=== PATIENT | female | born 1995 | race African-American/Black ===

== ENCOUNTER 2016-07-11 09:56 | Inpatient (IN) | payer OTHER ==
[~2016-07-11] VITALS: Ht 157.5 cm; Wt 80.7 kg
[~2016-07-11 09:56] MED LIST: BND25X PO; MECL1TAB42 PO; OXYC5TAB PO
[2016-07-11] MEDS ORDERED: BCPILLS PO (10:37)
[2016-07-11] MEDS ORDERED: VNTHFA/IN INH (10:39)
[2016-07-11] MEDS ORDERED: FLVHFA220 INH (10:39)
[2016-07-11 10:43] LABS: BASO % 0.6 %; BASO ABS # 0.05 K/uL (0-0.2); COMPLETE YES; EOS % 3.8 %; HEMATOCRIT 36.3 % (37-47); IG% 0.2 %; LYMPH % 25.1 %; MEAN CELL VOLUME 79.6 fL (80-100); MEAN CORPUSCULAR HEMOGLOBIN 26.5 pg (25-34); MEAN CORPUSCULAR HGB CONC 33.3 g/dl (32-36); MEAN PLATELET VOLUME 9.6 fL (7.4-10.4); MONO % 8.4 %; NEUT % 61.9 %; PLATELET COUNT 435 K/uL (130-400); RED BLOOD COUNT 4.56 M/uL (4.2-5.4); WHITE BLOOD COUNT 8.77 K/uL (4.8-10.8)
--- NOTE | 2016-07-11 10:49 | DIAGNOSTIC IMAGING REPORT ---
CHEST ONE VIEW PORTABLE CLINICAL HISTORY: Atypical chest pain. Shortness of breath. COMPARISON STUDY: February 01, 2015 FINDINGS: The cardiac and mediastinal contours are normal. There is no evidence of focal pulmonary consolidation. There is no evidence of failure. No pleural effusions are visualized.[ IMPRESSION: No active disease in the chest. Electronically signed by: Pramod Clancy M.D. 07/11/2016 10:47 AM Dictated Date/Time: 07/11/2016 10:47 AM
[2016-07-11 10:52] LABS: PROTHROMBIN TIME (PATIENT) 10.4 SECONDS (9.0-12.0)
[2016-07-11 11:03] LABS: ALT/SGPT 26 U/L (12-78); BLOOD UREA NITROGEN 9 mg/dl (7-18); BUN/CREATININE RATIO 12.9 (10-20); CALCIUM 9.1 mg/dl (8.5-10.1); CARBON DIOXIDE 20 mmol/L (21-32); CHLORIDE 108 mmol/L (98-107); GLUCOSE 87 mg/dl (70-99); POTASSIUM 3.9 mmol/L (3.5-5.1); SODIUM 140 mmol/L (136-145)
[2016-07-11 11:08] LABS: ALKALINE PHOSPHATASE 76 U/L (45-117); AST/SGOT 16 U/L (15-37)
[2016-07-11] MEDS ORDERED: OPTIRAY 320 IV PRN (12:15)
--- NOTE | 2016-07-11 12:37 | DIAGNOSTIC IMAGING REPORT ---
CT ANGIOGRAM OF THE CHEST CLINICAL HISTORY: Atypical chest pain. Dyspnea. COMPARISON STUDY: Chest x-ray dated 07/11/2016. TECHNIQUE: Following the IV administration of 102 cc of Optiray 320, CT angiogram of the chest was performed from the upper abdomen to the thoracic inlet utilizing the pulmonary embolus protocol. Images are reviewed in the axial, sagittal, and coronal planes. 3-D MIPS images are created and assessed. IV contrast was administered without complication. CT DOSE: 538.99 mGycm FINDINGS: Thyroid: Imaged portions of the thyroid gland are normal in size and attenuation. Thoracic aorta: The thoracic aorta is normal in caliber and demonstrates standard 3-vessel arch anatomy. No dissection is seen. Pulmonary vasculature: The pulmonary trunk is normal in caliber. There are filling defects within segmental and subsegmental branches of the right and left lower lobe pulmonary arteries consistent with pulmonary emboli. Heart: The heart is normal in size and configuration, and without pericardial effusion. Lungs and pleural spaces: A small cyst with an adjacent 3 mm pulmonary nodule in the right lower lobe seen on image #141 is of doubtful significance. The lungs and pleural spaces are otherwise clear noting dependent atelectasis. The trachea and central airways are patent. Mediastinum: There is no mediastinal lymphadenopathy. Adriana: Clear. Axillae: There is no axillary lymphadenopathy. Upper abdomen: Partially visualized upper abdominal viscera is within normal limits. Skeletal structures: No lytic or blastic bony lesions are seen. IMPRESSION: 1. There are segmental and subsegmental pulmonary emboli present within both lower lobe pulmonary arteries. 2. There is no airspace consolidation or pleural effusion. Electronically signed by: Alcides Vick M.D. 07/11/2016 12:35 PM Dictated Date/Time: 07/11/2016 12:31 PM
[2016-07-11] MEDS ORDERED: ACETAMINOPHEN 325 MG TAB PO STA (12:53)
[2016-07-11 13:28] LABS: PREG INTERNAL NEGATIVE QC NEG CLEAR BACKGROUND; PREG INTERNAL POSITIVE QC POS CONTROL LINE
[2016-07-11] MEDS ORDERED: NORE1TAB32 PO (14:00)
[2016-07-11] MEDS ORDERED: MISCCAP80 PO (14:00)
[2016-07-11] MEDS ORDERED: MULT-506 PO (14:00)
[2016-07-11 14:04] VITALS: Ht 157.5 cm; Wt 80.7 kg
[2016-07-11] MEDS ORDERED: IV FLUIDS COMPLETED PRN (14:30)
[2016-07-11 16:01] VITALS: O2SAT 99
[2016-07-11 16:05] VITALS: BP 117/79; PULSE 78; TEMP 36.9; O2SAT 99
--- NOTE | 2016-07-11 16:06 | History and Physical ---
History & Physical Date of Service Jul 11, 2016. History & Physical This is a 21 year old female with PMH of asthma, migraines, presented with some shortness of breath and chest pain - she was slightly tachycardic on presentation to the ER, CT was performed, showing bilateral segmental and subsegmental PEs in the lower lobes - she is not hypoxic, resting comfortably, intermittent chest pain currently. VITALS: Last Vital Signs Documentation Date Time Temp Pulse Resp B/P Pulse Ox O2 Delivery O2 Flow Rate FiO2 07/11/16 14:29 91 18 112/81 96 07/11/16 10:04 37.0 GEN: no acute distress CVS: RRR, +S1, S2 LUNGS: CTA b/l, no wheezing ABD: soft, NT/ND EXT: no edema Acute Bilateral PE likely secondary to OCP use stopped OCPs started Xarelto hypercoag w/up pending d/c home in AM with outpatient PCP f/u as well as crew scheduler f/u regarding control
--- NOTE | 2016-07-11 16:10 | History and Physical ---
History & Physical Date & Time of Service: Jul 11, 2016 at 16:00 Chief Complaint: Chest Pain, Shortness of Breath Primary Care Physician: Gerald Davila M.D. History of Present Illness 21 year old female who presents to the ER with chest pain and shortness of breath. Patient reports she has been having symptoms for about one month. She was seen at her PCPs office a few days ago. Her chest XR was clear. She was given inhalers. She reports the pain as located across her entire chest. It is constant and worse with a deep breath. She describes the pain as stabbing. Last night the pain was severe. She has had worsening shortness of breath on exertion. Last night she reports mild lightheadedness with standing but denies dizziness and syncopal events. She reports her left calf has been hurting and she notes two bruises to her upper thigh. She denies trauma to the leg. She denies any recent travel. No abdominal pain, nausea, vomiting, or diarrhea. She denies urinary symptoms. No fever or chills. In the ER, patient had CTA chest that is showing pulmonary embolism. She is saturating well on room air. Vitals are stable. Past Medical/Surgical History Medical Problems: (1) Asthma Status: Chronic (2) Benson's palsy Status: Chronic (3) BPPV (benign paroxysmal positional vertigo) Status: Chronic Surgical Problems: (1) H/O nasal polypectomy Status: Chronic (2) H/O ovarian cystectomy Status: Chronic (3) History of tonsillectomy and adenoidectomy Status: Chronic (4) [place] teeth extracted Status: Chronic Family History Unobtainable family history due to adoption Social History Smoking Status: Former Smoker Alcohol Use: none Marital Status: Allergies Coded Allergies: Ibuprofen (Verified Allergy, Severe, ANAPHYLAXIS, 07/11/16) Home Medications Scheduled Fluticasone Propionate (Flovent Hfa), 2 PUFFS INH BID Multivitamin (Multivitamin), 1 TAB PO DAILY Norethindrone & Eth Estradiol (Cyclafem ), 1 TAB PO DAILY Probiotic Product (Probiotic), 1 CAP PO DAILY Scheduled PRN Albuterol Hfa (Ventolin Hfa), 2 PUFFS INH Q4H PRN for Wheezing Review of Systems 10 point review of systems was completed with the pertinent positives and negatives noted per the HPI Physical Exam Vital Signs Date Time Temp Pulse Resp B/P Pulse Ox O2 Delivery O2 Flow Rate FiO2 07/11/16 14:29 91 18 112/81 96 07/11/16 14:04 Room Air 07/11/16 13:38 78 16 124/85 97 Room Air 07/11/16 13:08 88 07/11/16 12:07 75 22 126/87 96 Room Air 07/11/16 10:14 87 07/11/16 10:09 100 Room Air 07/11/16 10:07 100 Room Air 07/11/16 10:04 37.0 110 34 132/78 100 Room Air General Appearance: no apparent distress Head: normocephalic Eyes: normal inspection ENT: hearing grossly normal Neck: supple, no JVD Respiratory/Chest: lungs clear, normal breath sounds, no respiratory distress Cardiovascular: regular rate, rhythm, no edema, normal peripheral pulses Abdomen/GI: normal bowel sounds, non tender, soft Extremities/Musculoskelatal: no pedal edema, + calf tenderness (right) Neurologic/Psych: no motor/sensory deficits, alert, normal mood/affect, oriented x 3 Skin: normal color, warm/dry Diagnostics Laboratory Results Results Past 24 Hours Test 07/11/16 10:20 07/11/16 10:22 07/11/16 13:50 Range/Units White Blood Count 8.77 4.8-10.8 K/uL Red Blood Count 4.56 4.2-5.4 M/uL Hemoglobin 12.1 12.0-16.0 g/dL Hematocrit 36.3 37-47 % Mean Corpuscular Volume 79.6 80-100 fL Mean Corpuscular Hemoglobin 26.5 25-34 pg Mean Corpuscular Hemoglobin Concent 33.3 32-36 g/dl Platelet Count 435 130-400 K/uL Mean Platelet Volume 9.6 7.4-10.4 fL Neutrophils (%) (Auto) 61.9 % Lymphocytes (%) (Auto) 25.1 % Monocytes (%) (Auto) 8.4 % Eosinophils (%) (Auto) 3.8 % Basophils (%) (Auto) 0.6 % Neutrophils # (Auto) 5.43 1.4-6.5 K/uL Lymphocytes # (Auto) 2.20 1.2-3.4 K/uL Monocytes # (Auto) 0.74 0.11-0.59 K/uL Eosinophils # (Auto) 0.33 0-0.5 K/uL Basophils # (Auto) 0.05 0-0.2 K/uL RDW Standard Deviation 41.1 36.4-46.3 fL RDW Coefficient of Variation 14.4 11.5-14.5 % Immature Granulocyte % (Auto) 0.2 % Immature Granulocyte # (Auto) 0.02 0.00-0.02 K/uL Prothrombin Time 10.4 9.0-12.0 SECONDS Prothromb Time International Ratio 1.0 0.9-1.1 Activated Partial Thromboplast Time 25.8 21.0-31.0 SECONDS Partial Thromboplastin Ratio 1.0 Sodium Level 140 136-145 mmol/L Potassium Level 3.9 3.5-5.1 mmol/L Chloride Level 108 98-107 mmol/L Carbon Dioxide Level 20 21-32 mmol/L Anion Gap 12.0 3-11 mmol/L Blood Urea Nitrogen 9 7-18 mg/dl Creatinine 0.70 0.60-1.20 mg/dl Est Creatinine Clear Calc Drug Dose 123.0 ml/min Estimated GFR () 141.5 Estimated GFR (Non- 122.1 BUN/Creatinine Ratio 12.9 10-20 Random Glucose 87 70-99 mg/dl Calcium Level 9.1 8.5-10.1 mg/dl Total Bilirubin 0.3 0.2-1 mg/dl Direct Bilirubin < 0.1 0-0.2 mg/dl Aspartate Amino Transf (AST/SGOT) 16 15-37 U/L Alanine Aminotransferase (ALT/SGPT) 26 12-78 U/L Alkaline Phosphatase 76 45-117 U/L Total Creatine Kinase 89 26-192 U/L Creatine Kinase MB < 0.5 0.5-3.6 ng/ml Creatine Kinase MB Ratio 0-3.0 Total Protein 8.3 6.4-8.2 gm/dl Albumin 3.5 3.4-5.0 gm/dl Lipase 153 73-393 U/L Human Chorionic Gonadotropin, Qual NEG NEG Diagnostic Radiology CXR IMPRESSION: No active disease in the chest. CTA CHEST IMPRESSION: 1. There are segmental and subsegmental pulmonary emboli present within both lower lobe pulmonary arteries. 2. There is no airspace consolidation or pleural effusion. Impression Assessment and Plan PULMONARY EMBOLISM - admit to tele - risk factor: on control; family history unobtainable as patient is adopted; no recent travel - hypercoagulable panel ordered, BLLE dopplers - patient hemodynamically stable; saturating well on room air - will start Xarelto 15mg BID x 21 days, then 20mg daily - ED case management checked coverage with patient's insurance - will hold control - outpatient follow up with gyne for recommendations for options with PE DVT PROPHYLAXIS - on Xarelto DISPO - expect d/c home tomorrow Advanced Directives Existing Living Will: No Existing Power of Apron Cleaner: No VTE Prophylaxis VTE Risk Assessment Done? Y/N: Yes Risk Level: Moderate
[2016-07-11] MEDS ORDERED: RIVAROXABAN TAB 15 MG TAB PO ONE (16:15)
[2016-07-11] MEDS: ACETAMINOPHEN 325 MG TAB PO PRN (17:40)
--- NOTE | 2016-07-11 18:36 | EMERGENCY ROOM VISIT NOTE ---
History Report prepared by Homer: Freddy Carballo Under the Supervision of: Dr. Jonny Ritter M.D. First contact with patient: 10:17 Chief Complaint: CHEST PAIN Stated Complaint: TROUBLE BREATHING, PAIN ON LEFT SIDE OF CHEST Nursing Triage Summary: Patient to ed via triage for chest pain, SOB ongoing for one month, worsened last evening. Patient states "its on the left side of my chest, the worst pain I've ever felt, like I'm being shocked. I saw my primary and tried inhalers that didn't work, a chest xray was clear they said." Patient reports worsened pain with inhalation History of Present Illness The patient is a 21 year old female who presents to the Emergency Room with complaints of worsening left sided chest pain starting about a month ago. She also reports shortness of breath. She has worsening pain with breathing and palpation. She was evaluated by her PCP who suspected her chest pain to be related to her history of asthma. She describes it to be a tightness in her chest but it is different from her asthma. She has been using her inhaler without relief. The inhaler worsens her pain. She received a chest pain starting 5 days ago. She also notes night sweats and lightheadedness. She also complains of left leg pain. She denies fevers, urinary symptoms, or any other complaints. She denies any recent falls, travels, or recent weight gain/loss. She takes an oral contraceptive. Source of History: patient Onset: about a month ago Position: chest (left) Quality: other (tightness) Timing: worsening Modifying Factors (Worsening): breathing, other (palpation, inhaler) Modifying Factors (Relieving): other (inhaler without relief) Associated Symptoms: + SOB, No fevers, No urinary symptoms Review of Systems See HPI for pertinent positives & negatives. A total of 10 systems reviewed and were otherwise negative. Past Medical & Surgical Medical Problems: (1) Asthma (2) Benson's palsy (3) BPPV (benign paroxysmal positional vertigo) Surgical Problems: (1) H/O nasal polypectomy (2) H/O ovarian cystectomy (3) History of tonsillectomy and adenoidectomy (4) [place] teeth extracted Old medical records were reviewed. Nurse's notes were reviewed and I agree with. Family History Unobtainable family history due to adoption Social History Smoking Status: Never Smoker Alcohol Use: none Drug Use: none Marital Status: Housing Status: lives with family Current/Historical Medications Scheduled Fluticasone Propionate (Flovent Hfa), 2 PUFFS INH BID Multivitamin (Multivitamin), 1 TAB PO DAILY Norethindrone & Eth Estradiol (Cyclafem ), 1 TAB PO DAILY Probiotic Product (Probiotic), 1 CAP PO DAILY Scheduled PRN Albuterol Hfa (Ventolin Hfa), 2 PUFFS INH Q4H PRN for Wheezing Allergies Coded Allergies: Ibuprofen (Verified Allergy, Severe, ANAPHYLAXIS, 07/11/16) Physical Exam Vital Signs Date Time Temp Pulse Resp B/P Pulse Ox O2 Delivery O2 Flow Rate FiO2 07/11/16 13:38 78 16 124/85 97 Room Air 07/11/16 13:08 88 07/11/16 12:07 75 22 126/87 96 Room Air 07/11/16 10:14 87 07/11/16 10:09 100 Room Air 07/11/16 10:07 100 Room Air 07/11/16 10:04 37.0 110 34 132/78 100 Room Air Physical Exam General: Non-ill appearing, young female, in no acute distress. HEENT: Normal cephalic atraumatic. Pupils are equal round and reactive to light. Sclera are anicteric. Extraocular movements are intact. Oropharynx is pink with moist mucous membranes. No swelling of the mouth lips or tongue. Neck: Supple with a midline trachea. No meningeal signs or stiffness, no JVD or bruits. No Stridor. Chest: Reproducible tenderness in the left chest. Clear to auscultation bilaterally. No wheezes or rhonchi. No increased work of breathing. Heart: regular rate and rhythm. Abdomen: Soft nontender, nondistended without rebound guarding or rigidity. Extremities: No cyanosis clubbing or edema. No calf tenderness or assymetry. Bruise on the left lateral thigh. Spine/Back. Non tender to palpation. No CVA tenderness Skin: Good turgor without rashes. Neurologic exam: Cranial nerves two through 12 are intact. Motor and sensation are intact and symmetrical throughout. Medical Decision & Procedures ER Provider Diagnostic Interpretation: X-ray results as stated below per interpretation by me and the radiologist: CHEST ONE VIEW PORTABLE CLINICAL HISTORY: Atypical chest pain. Shortness of breath. COMPARISON STUDY: February 01, 2015 FINDINGS: The cardiac and mediastinal contours are normal. There is no evidence of focal pulmonary consolidation. There is no evidence of failure. No pleural effusions are visualized.[ IMPRESSION: No active disease in the chest. Electronically signed by: Pramod Clancy M.D. 07/11/2016 10:47 AM Dictated Date/Time: 07/11/2016 10:[address] results as stated below per my review and radiologist interpretation: CT ANGIOGRAM OF THE CHEST CLINICAL HISTORY: Atypical chest pain. Dyspnea. COMPARISON STUDY: Chest x-ray dated 07/11/2016. TECHNIQUE: Following the IV administration of 102 cc of Optiray 320, CT angiogram of the chest was performed from the upper abdomen to the thoracic inlet utilizing the pulmonary embolus protocol. Images are reviewed in the axial, sagittal, and coronal planes. 3-D MIPS images are created and assessed. IV contrast was administered without complication. CT DOSE: 538.99 mGycm FINDINGS: Thyroid: Imaged portions of the thyroid gland are normal in size and attenuation. Thoracic aorta: The thoracic aorta is normal in caliber and demonstrates standard 3-vessel arch anatomy. No dissection is seen. Pulmonary vasculature: The pulmonary trunk is normal in caliber. There are filling defects within segmental and subsegmental branches of the right and left lower lobe pulmonary arteries consistent with pulmonary emboli. Heart: The heart is normal in size and configuration, and without pericardial effusion. Lungs and pleural spaces: A small cyst with an adjacent 3 mm pulmonary nodule in the right lower lobe seen on image #141 is of doubtful significance. The lungs and pleural spaces are otherwise clear noting dependent atelectasis. The trachea and central airways are patent. Mediastinum: There is no mediastinal lymphadenopathy. Adriana: Clear. Axillae: There is no axillary lymphadenopathy. Upper abdomen: Partially visualized upper abdominal viscera is within normal limits. Skeletal structures: No lytic or blastic bony lesions are seen. IMPRESSION: 1. There are segmental and subsegmental pulmonary emboli present within both lower lobe pulmonary arteries. 2. There is no airspace consolidation or pleural effusion. Electronically signed by: Alcides Vick M.D. 07/11/2016 12:35 PM Dictated Date/Time: 07/11/2016 12:31 PM Laboratory Results 07/11/16 10:20 Red Blood Count 4.56, Mean Corpuscular Volume 79.6, Mean Corpuscular Hemoglobin 26.5, Mean Corpuscular Hemoglobin Concent 33.3, Mean Platelet Volume 9.6, Neutrophils (%) (Auto) 61.9, Lymphocytes (%) (Auto) 25.1, Monocytes (%) (Auto) 8.4, Eosinophils (%) (Auto) 3.8, Basophils (%) (Auto) 0.6, Neutrophils # (Auto) 5.43, Lymphocytes # (Auto) 2.20, Monocytes # (Auto) 0.74, Eosinophils # (Auto) 0.33, Basophils # (Auto) 0.05 07/11/16 10:20 Test 07/11/16 10:20 07/11/16 10:22 07/11/16 13:50 White Blood Count 8.77 K/uL (4.8-10.8) Red Blood Count 4.56 M/uL (4.2-5.4) Hemoglobin 12.1 g/dL (12.0-16.0) Hematocrit 36.3 % (37-47) Mean Corpuscular Volume 79.6 fL (80-100) Mean Corpuscular Hemoglobin 26.5 pg (25-34) Mean Corpuscular Hemoglobin Concent 33.3 g/dl (32-36) Platelet Count 435 K/uL (130-400) Mean Platelet Volume 9.6 fL (7.4-10.4) Neutrophils (%) (Auto) 61.9 % Lymphocytes (%) (Auto) 25.1 % Monocytes (%) (Auto) 8.4 % Eosinophils (%) (Auto) 3.8 % Basophils (%) (Auto) 0.6 % Neutrophils # (Auto) 5.43 K/uL (1.4-6.5) Lymphocytes # (Auto) 2.20 K/uL (1.2-3.4) Monocytes # (Auto) 0.74 K/uL (0.11-0.59) Eosinophils # (Auto) 0.33 K/uL (0-0.5) Basophils # (Auto) 0.05 K/uL (0-0.2) RDW Standard Deviation 41.1 fL (36.4-46.3) RDW Coefficient of Variation 14.4 % (11.5-14.5) Immature Granulocyte % (Auto) 0.2 % Immature Granulocyte # (Auto) 0.02 K/uL (0.00-0.02) Prothrombin Time 10.4 SECONDS (9.0-12.0) Prothromb Time International Ratio 1.0 (0.9-1.1) Activated Partial Thromboplast Time 25.8 SECONDS (21.0-31.0) Partial Thromboplastin Ratio 1.0 Anion Gap 12.0 mmol/L (3-11) Est Creatinine Clear Calc Drug Dose 123.0 ml/min Estimated GFR () 141.5 Estimated GFR (Non- 122.1 BUN/Creatinine Ratio 12.9 (10-20) Calcium Level 9.1 mg/dl (8.5-10.1) Total Bilirubin 0.3 mg/dl (0.2-1) Direct Bilirubin < 0.1 mg/dl (0-0.2) Aspartate Amino Transf (AST/SGOT) 16 U/L (15-37) Alanine Aminotransferase (ALT/SGPT) 26 U/L (12-78) Alkaline Phosphatase 76 U/L (45-117) Total Creatine Kinase 89 U/L (26-192) Creatine Kinase MB < 0.5 ng/ml (0.5-3.6) Total Protein 8.3 gm/dl (6.4-8.2) Albumin 3.5 gm/dl (3.4-5.0) Lipase 153 U/L (73-393) Human Chorionic Gonadotropin, Qual NEG (NEG) Creatine Kinase MB Ratio (0-3.0) Laboratory studies as stated above per my review. Medications Administered Medications (Trade) Dose Ordered Sig/Dirk Route Start Time Stop Time Status Last Admin Dose Admin Acetaminophen (Tylenol Tab) 650 mg NOW STAT PO 07/11/16 12:53 07/11/16 12:54 DC 07/11/16 13:05 650 MG ECG Indication: chest pain Rate (beats per minute): 101 Rhythm: sinus tachycardia Findings: no acute ischemic change, no ectopy Comparison ECG Date: March 04, 2015 Change: no significant change ED Course 1017: Past medical records reviewed. The patient was evaluated in room C03, and a complete history and physical examination were performed. 1150: I explained the risk and benefits of CT and she agreed. 1253: Tylenol Tab 650 mg PO 1300: Upon reevaluation, the patient is resting comfortably. I discussed the results and treatment plan with the patient. She verbalized agreement of the treatment plan. The patient will be evaluated for further management. 1308: I discussed the patient's case with DARRELL Campbell with [facility]. Medical Decision Differential diagnosis includes but is not limited to acute coronary syndrome, musculoskeletal, PE, pneumothorax, pneumonia, electrolyte or metabolic abnormalities. \\ This patient comes in as described above. She was placed in room C3. She's been having chest pain for about a month ago. It is worse lately. It's mostly in the left side. The patient has some mild shortness of breath that is pleuritic. She is on control but does not smoke. She has had no trauma. She's had some pain in the left lateral leg. IV access established Luli EKG was obtained and multiple blood tests was obtained. EKG does not suggest acute coronary syndrome or arrhythmia. Chest x-ray is clear and shows nothing to suggest congestive heart failure, pneumonia or pneumothorax. She has no acute electrolyte or metabolic abnormalities. Her d-dimer was significantly elevated and in light of this, I did do a chest CT after explaining the risks and benefits the patient freely consented. There was found to be bilateral PEs in the bases on both sides. In light of this, I do think she needs to be anticoagulated and admitted for further treatment and evaluation. I have consulted the [facility] team. They're to come evaluate her and decide which anticoagulated agent that they will use. She will be admitted for further treatment and evaluation. Consults Time Called: 1309 Consulting Physician: DARRELL Campbell with [facility] Returned Call: [phone] I discussed the patient's case with DARRELL Campbell with [facility]. Impression Primary Impression: Bilateral pulmonary embolism Scribe Attestation The scribe's documentation has been prepared under my direction and personally reviewed by me in its entirety. I confirm that the note above accurately reflects all work, treatment, procedures, and medical decision making performed by me. Departure Information Dispostion Being Evaluated By Hospitalist Gerald Machado M.D. (PCP) Patient Instructions My [facility]
[2016-07-11] MEDS: TRAMADOL HCL 50 MG TAB PO PRN (18:52)
[2016-07-11 19:09] VITALS: BP 115/83; PULSE 92; TEMP 37; O2SAT 98
[2016-07-11] MEDS: OXYCODONE/ACETAMINOPHEN 5-325 TAB PO PRN (19:46)
--- NOTE | 2016-07-11 20:46 | DIAGNOSTIC IMAGING REPORT ---
BILATERAL LOWER EXTREMITY VENOUS DOPPLER CLINICAL HISTORY: Catheter pain. Difficulty breathing. Left-sided chest pain. COMPARISON STUDY: Right lower extremity venous Doppler February 08, 2015. TECHNIQUE: Sonography of the deep venous system of the bilateral lower extremities was performed. Compression and augmentation were evaluated. FINDINGS: The bilateral common femoral, superficial femoral and popliteal veins were compressible. Augmentation was normal. Flow was shown within the deep calf vessels. IMPRESSION: No evidence of deep venous thrombus within the bilateral lower extremities. Electronically signed by: Patrick Swain M.D. 07/11/2016 8:44 PM Dictated Date/Time: 07/11/2016 8:43 PM
[2016-07-11] MEDS: MoRPHine SULFATE 4 MG/ML 1 ML CARP\\VIAL IV PRN (22:18)
[2016-07-11] MEDS: RIVAROXABAN TAB 15 MG TAB PO SCH (23:00)
[2016-07-11 23:52] VITALS: BP 119/73; PULSE 65; TEMP 36.7; O2SAT 96
[2016-07-12] MEDS: ACETAMINOPHEN 325 MG TAB PO PRN (00:25)
[2016-07-12] MEDS: MoRPHine SULFATE 4 MG/ML 1 ML CARP\\VIAL IV PRN (01:44)
[2016-07-12] MEDS: ONDANSETRON INJ 2 MG/ML 2 ML VIAL IV PRN ×2 (01:44→07:38)
[2016-07-12] MEDS: OXYCODONE/ACETAMINOPHEN 5-325 TAB PO PRN (03:47)
[2016-07-12 04:20] VITALS: BP 106/68; PULSE 73; TEMP 36.8; O2SAT 97
[2016-07-12] MEDS ORDERED: LORAZEPAM INJ 0.5 MG in SYRINGE 0.75 ML IV PRN (06:15)
[2016-07-12] MEDS ORDERED: LORAZEPAM 2 MG/ML 1 ML VIAL IV PRN (06:15)
[2016-07-12 07:20] VITALS: BP 117/65; PULSE 84; TEMP 36.9; O2SAT 100
[2016-07-12 07:21] LABS: HEMATOCRIT 34.6 % (37-47); MEAN CORPUSCULAR HEMOGLOBIN 26.8 pg (25-34); MEAN CORPUSCULAR HGB CONC 32.7 g/dl (32-36); MEAN PLATELET VOLUME 9.7 fL (7.4-10.4); PLATELET COUNT 378 K/uL (130-400); RED BLOOD COUNT 4.22 M/uL (4.2-5.4); WHITE BLOOD COUNT 7.11 K/uL (4.8-10.8)
[2016-07-12 07:47] VITALS: O2SAT 100
[2016-07-12 07:49] LABS: BUN/CREATININE RATIO 12.2 (10-20); CALCIUM 8.5 mg/dl (8.5-10.1); CREATININE 0.73 mg/dl (0.60-1.20); POTASSIUM 3.8 mmol/L (3.5-5.1)
[2016-07-12] MEDS: TRAMADOL HCL 50 MG TAB PO PRN (08:42)
[2016-07-12] MEDS: RIVAROXABAN TAB 15 MG TAB PO SCH ×2 (08:42→12:59)
[2016-07-12] MEDS ORDERED: LACTOBACILLUS ACIDOPHILUS (FLORANEX) TAB PO SCH (09:00)
[2016-07-12] MEDS ORDERED: MULTIVITAMIN TAB PO SCH (09:00)
[2016-07-12 09:43] LABS: POINT OF CARE PRO-BNP 14 pg/ml (0-450)
--- NOTE | 2016-07-12 10:20 | Progress Note ---
Subjective Date of Service: Jul 12, 2016. Subjective Pt evaluation today including: conversation w/ patient, physical exam, lab review, review of studies, review of inpatient medication list Saw/examined the patient in room 241-2 She is resting in bed; lethargic from the pain medications that she received this morning No other issues to note Problem List Medical Problems: (1) Bilateral pulmonary embolism Status: Acute (2) Left facial numbness Status: Acute (3) Vertigo Status: Acute Review of Systems Constitutional: No chills, No fever Respiratory: No cough, No dyspnea at rest, No dyspnea on exertion, No hemoptysis, No shortness of breath, No sputum, No wheezing Cardiac: + chest pain, No PND, No claudication, No edema, No orthopnea, No palpitations Abdomen: No diarrhea, No nausea, No pain, No vomiting Medications Current Inpatient Medications Medications (Trade) Dose Ordered Sig/Dirk Route Start Time Stop Time Status Last Admin Dose Admin Ioversol (Optiray 320) 100 ml UD PRN IV 07/11/16 12:15 07/15/16 12:14 Acetaminophen (Tylenol Tab) 650 mg Q4H PRN PO 07/11/16 14:00 08/10/16 13:59 07/12/16 00:25 650 MG Ondansetron HCl (Zofran Inj) 4 mg Q6H PRN IV 07/11/16 14:00 08/10/16 13:59 07/12/16 07:38 4 MG Rivaroxaban (Xarelto Tab) 15 mg BID PO 07/11/16 23:30 07/31/16 21:01 07/12/16 08:42 15 MG Multivitamins (Multivitamin Tab) 1 tab DAILY PO 07/12/16 09:00 08/11/16 08:59 07/12/16 08:42 1 TAB Lactobacillus Acidophilus (Floranex Tab) 4 tab DAILY PO 07/12/16 09:00 08/11/16 08:59 07/12/16 08:43 4 TAB Miscellaneous (Iv Fluids Completed) 1 ea PRN PRN N/A 07/11/16 14:30 07/11/17 14:29 Tramadol HCl (Ultram Tab) 50 mg Q6H PRN PO 07/11/16 18:30 08/10/16 18:29 07/12/16 08:42 50 MG Oxycodone/ Acetaminophen (Percocet 5-325mg Tab) 1 tab Q4H PRN PO 07/11/16 18:30 07/25/16 18:29 07/12/16 03:47 1 TAB Morphine Sulfate (MoRPHine SULFATE INJ) 4 mg Q3H PRN IV 07/11/16 20:15 07/25/16 20:14 07/12/16 01:44 4 MG Lorazepam 0.5 mg 0.5 mg Q4H PRN IV 07/12/16 06:15 08/11/16 06:14 07/12/16 06:20 0.5 MG Lorazepam/Syringe (Ativan Inj/ Syringe) 1 ml @ 1 mls/min Q4H PRN IV 07/12/16 06:15 08/11/16 06:14 Objective Vital Signs Date Time Temp Pulse Resp B/P Pulse Ox O2 Delivery O2 Flow Rate FiO2 07/12/16 07:47 100 Nasal Cannula 2.0 07/12/16 07:20 36.9 84 16 117/65 100 Nasal Cannula 2.0 Humidified Oxygen 07/12/16 04:20 36.8 73 18 106/68 97 Room Air 07/12/16 04:02 Room Air 07/12/16 00:01 Room Air 07/11/16 23:52 36.7 65 18 119/73 96 Room Air 07/11/16 20:00 Room Air 07/11/16 19:09 37.0 92 16 115/83 98 Room Air 07/11/16 16:05 36.9 78 17 117/79 99 Room Air 07/11/16 16:01 99 Room Air 07/11/16 14:29 91 18 112/81 96 07/11/16 14:04 Room Air 07/11/16 13:38 78 16 124/85 97 Room Air 07/11/16 13:08 88 07/11/16 12:07 75 22 126/87 96 Room Air Physical Exam General Appearance: no apparent distress Respiratory/Chest: lungs clear, normal breath sounds, no respiratory distress, no accessory muscle use Cardiovascular: regular rate, rhythm, no edema, no murmur Abdomen: normal bowel sounds, non tender, soft Extremities: normal inspection, no pedal edema Neurologic/Psychiatric: no motor/sensory deficits, alert, normal mood/affect Skin: normal color Laboratory Results Last 24 Hours Test 07/11/16 10:20 07/11/16 10:22 07/11/16 10:25 07/11/16 13:50 White Blood Count 8.77 K/uL Red Blood Count 4.56 M/uL Hemoglobin 12.1 g/dL Hematocrit 36.3 % Mean Corpuscular Volume 79.6 fL Mean Corpuscular Hemoglobin 26.5 pg Mean Corpuscular Hemoglobin Concent 33.3 g/dl Platelet Count 435 K/uL Mean Platelet Volume 9.6 fL Neutrophils (%) (Auto) 61.9 % Lymphocytes (%) (Auto) 25.1 % Monocytes (%) (Auto) 8.4 % Eosinophils (%) (Auto) 3.8 % Basophils (%) (Auto) 0.6 % Neutrophils # (Auto) 5.43 K/uL Lymphocytes # (Auto) 2.20 K/uL Monocytes # (Auto) 0.74 K/uL Eosinophils # (Auto) 0.33 K/uL Basophils # (Auto) 0.05 K/uL RDW Standard Deviation 41.1 fL RDW Coefficient of Variation 14.4 % Immature Granulocyte % (Auto) 0.2 % Immature Granulocyte # (Auto) 0.02 K/uL Prothrombin Time 10.4 SECONDS Prothromb Time International Ratio 1.0 Activated Partial Thromboplast Time 25.8 SECONDS Partial Thromboplastin Ratio 1.0 Sodium Level 140 mmol/L Potassium Level 3.9 mmol/L Chloride Level 108 mmol/L Carbon Dioxide Level 20 mmol/L Anion Gap 12.0 mmol/L Blood Urea Nitrogen 9 mg/dl Creatinine 0.70 mg/dl Est Creatinine Clear Calc Drug Dose 123.0 ml/min Estimated GFR () 141.5 Estimated GFR (Non- 122.1 BUN/Creatinine Ratio 12.9 Random Glucose 87 mg/dl Calcium Level 9.1 mg/dl Total Bilirubin 0.3 mg/dl Direct Bilirubin < 0.1 mg/dl Aspartate Amino Transf (AST/SGOT) 16 U/L Alanine Aminotransferase (ALT/SGPT) 26 U/L Alkaline Phosphatase 76 U/L Total Creatine Kinase 89 U/L Creatine Kinase MB < 0.5 ng/ml Creatine Kinase MB Ratio Total Protein 8.3 gm/dl Albumin 3.5 gm/dl Lipase 153 U/L Human Chorionic Gonadotropin, Qual NEG Bedside D-Dimer 3293 ng/mlFEU PI-Sqy-G-Type Natriuretic Peptide 14 pg/ml Test 07/12/16 07:03 White Blood Count 7.11 K/uL Red Blood Count 4.22 M/uL Hemoglobin 11.3 g/dL Hematocrit 34.6 % Mean Corpuscular Volume 82.0 fL Mean Corpuscular Hemoglobin 26.8 pg Mean Corpuscular Hemoglobin Concent 32.7 g/dl RDW Standard Deviation 43.6 fL RDW Coefficient of Variation 14.5 % Platelet Count 378 K/uL Mean Platelet Volume 9.7 fL Sodium Level 138 mmol/L Potassium Level 3.8 mmol/L Chloride Level 106 mmol/L Carbon Dioxide Level 23 mmol/L Anion Gap 9.0 mmol/L Blood Urea Nitrogen 9 mg/dl Creatinine 0.73 mg/dl Est Creatinine Clear Calc Drug Dose 118.0 ml/min Estimated GFR () 134.5 Estimated GFR (Non- 116.1 BUN/Creatinine Ratio 12.2 Random Glucose 101 mg/dl Calcium Level 8.5 mg/dl Assessment and Plan This is a 21 year old female with PMH of asthma, migraines, presented with some shortness of breath and chest pain Acute Bilateral PE 07/12 Xarelto 15mg BID x 3 weeks hypercoag w/up pending d/c'd Morphine, Ativan, Percocet will d/c home today with outpatient PCP f/u 07/11 likely secondary to OCP use stopped OCPs started Xarelto hypercoag w/up pending d/c home in AM with outpatient PCP f/u as well as welder plasma arc f/u regarding control DVT ppx Xarelto Discharge planning: home
[2016-07-12] MEDS ORDERED: RIVA1TAB7 PO (10:26)
--- NOTE | 2016-07-12 10:28 | Discharge Instructions ---
Discharge Instructions Admission Reason for Admission: Pulmonary Embolism Discharge Discharge Diagnosis / Problem: Acute bilateral PE Discharge Goals Goal(s): Decrease discomfort, Improve function, Diagnostic testing, Therapeutic intervention Activity Recommendations Activity Limitations: resume your previous activity Driving or Machine Use: do not drive if taking tramadol . Instructions / Follow-Up Instructions / Follow-Up Please follow-up with Opal Zuñiga (covering for Dr. Davila) on July 13 @ 11:10AM * You will be prescribed a Xarelto starter pack - please start on day #3 of the pack * You are to take 15mg twice a day up to day #21, and then 20mg daily * Stop taking your oral contraceptives - follow-up with OB-residential leasing agent for further input * There is labwork pending that your primary care physician should follow-up on Current Hospital Diet Patient's current hospital diet: Regular Diet Discharge Diet Recommended Diet: Regular Diet Pending Studies Studies pending at discharge: yes List of pending studies: Hypercoag work-up Medical Emergencies . Who to Call and When: Medical Emergencies: If at any time you feel your situation is an emergency, please call 911 immediately. . Non-Emergent Contact Non-Emergency issues call your: Primary Care Provider . . "Provider Documentation" section prepared by Higinio Garcia. VTE Core Measure Inpt VTE Proph given/why not?: Other Anticoagulation (Xarelto)
--- NOTE | 2016-07-12 10:31 | Discharge Summary ---
Discharge Summary Date of Service Jul 12, 2016. Discharge Summary Admission Date: Jul 11, 2016 at 13:58 Discharge Date: Jul 12, 2016 Discharge Disposition: Home Principal Diagnosis: Acute Bilateral PEs Medication Reconciliation New Medications: Rivaroxaban (Xarelto Starter Pack 15 & 20 mg) 1 Tab Tab 1 PKT PO UD for 30 Days, #1 PKT Continued Medications: Albuterol Hfa (Ventolin Hfa) 200 Puffs/17151 Mcg Aers 2 PUFFS INH Q4H PRN for Wheezing, #18 Fluticasone Propionate (Flovent Hfa) 120 Puffs/19930 Mcg Aero 2 PUFFS INH BID, #12 Multivitamin (Multivitamin) Tab 1 TAB PO DAILY, TAB Probiotic Product (Probiotic) 1 Cap Cap 1 CAP PO DAILY Discontinued Medications: Norethindrone & Eth Estradiol (Cyclafem ) 1 Tab Tab 1 TAB PO DAILY Admission Information HPI (per Admitting provider): 21 year old female who presents to the ER with chest pain and shortness of breath. Patient reports she has been having symptoms for about one month. She was seen at her PCPs office a few days ago. Her chest XR was clear. She was given inhalers. She reports the pain as located across her entire chest. It is constant and worse with a deep breath. She describes the pain as stabbing. Last night the pain was severe. She has had worsening shortness of breath on exertion. Last night she reports mild lightheadedness with standing but denies dizziness and syncopal events. She reports her left calf has been hurting and she notes two bruises to her upper thigh. She denies trauma to the leg. She denies any recent travel. No abdominal pain, nausea, vomiting, or diarrhea. She denies urinary symptoms. No fever or chills. In the ER, patient had CTA chest that is showing pulmonary embolism. She is saturating well on room air. Vitals are stable. Physical Exam (per Admitting): General Appearance: no apparent distress Head: normocephalic Eyes: normal inspection ENT: hearing grossly normal Neck: supple, no JVD Respiratory/Chest: lungs clear, normal breath sounds, no respiratory distress Cardiovascular: regular rate, rhythm, no edema, normal peripheral pulses Abdomen/GI: normal bowel sounds, non tender, soft Extremities/Musculoskelatal: no pedal edema, + calf tenderness (right) Neurologic/Psych: no motor/sensory deficits, alert, normal mood/affect, oriented x 3 Skin: normal color, warm/dry Hospital Course This is a 21 year old female with PMH of asthma, migraines, presented with some shortness of breath and chest pain Acute Bilateral PE 07/12 Xarelto 15mg BID x 3 weeks hypercoag w/up pending d/c'd Morphine, Ativan, Percocet will d/c home today with outpatient PCP f/u 07/11 likely secondary to OCP use stopped OCPs started Xarelto hypercoag w/up pending d/c home in AM with outpatient PCP f/u as well as cutting machine tender decorative f/u regarding control DVT ppx Xarelto Discharge planning: home Total time spent on discharge = 25 minutes This includes examination of the patient, discharge planning, medication reconciliation, and communication with other providers. Discharge Instructions Please follow-up with Opal Zuñiga (covering for Dr. Davila) on July 13 @ 11:10AM * You will be prescribed a Xarelto starter pack - please start on day #3 of the pack * You are to take 15mg twice a day up to day #21, and then 20mg daily * Stop taking your oral contraceptives - follow-up with OB-cutting machine tender decorative for further input * There is labwork pending that your primary care physician should follow-up on
[2016-07-12 11:22] VITALS: BP 112/73; PULSE 92; TEMP 37.3; O2SAT 99
[2016-07-12] MEDS ORDERED: ULT50X PO (11:50)
[2016-07-13 10:59] LABS: POINT OF CARE PRO-BNP < 15 pg/ml (0-450)
[2016-07-17 23:33] LABS: ANTITHROMBINIII ACTIVITY** 98 % activity (80-120); B2 GLYCOPROTEIN IGA <9 SAU (<=20); B2 GLYCOPROTEIN IGG <9 SGU (<=20); B2 GLYCOPROTEIN IGM <9 SMU (<=20); LUPUS ANTICOAGULANT** TC36573X Negative (Negative); PROTEIN C ACTIVITY** TC 1777X 135 % (70-180); PROTEIN S ACT(FUNCT)**1779X 90 % (60-140)
[2016-12-24] MEDS ORDERED: ANT25 PO (17:31)
== END 2016-07-12 14:36 | disposition home or self-care (01) | DRG 176 ==
LOC: ENRESERVTM → ENRESERVDT → C.EDB 09:57 → C.2T 13:58 → EDBEDREQ 14:00
PROVIDERS: ADMIT Family Medicine; ATTEND Family Medicine
DX: I26.99 Other pulmonary embolism without acute cor pulmonale (principal); J45.909 Unspecified asthma, uncomplicated; G43.909 Migraine, unspecified, not intractable, without status migrainosus; R00.0 Tachycardia, unspecified; H81.10 Benign paroxysmal vertigo, unspecified ear; R07.9 Chest pain, unspecified; T38.4X5A Adverse effect of oral contraceptives, initial encounter; Z87.891 Personal history of nicotine dependence; Z79.899 Other long term (current) drug therapy; Z79.3 Long term (current) use of hormonal contraceptives; Z86.69 Personal history of other diseases of the nervous system and sense organs

== ENCOUNTER 2016-07-12 19:21 | Emergency (ER) | payer OTHER ==
[~2016-07-12] VITALS: Ht 157.5 cm; Wt 79.5 kg
[~2016-07-12 19:21] MED LIST changes: -BND25X PO; +FLVHFA220 INH; -MECL1TAB42 PO; +MISCCAP80 PO; +MULT-506 PO; +NORE1TAB32 PO; -OXYC5TAB PO; +RIVA1TAB7 PO; +ULT50X PO; +VNTHFA/IN INH
[2016-07-12 19:26] VITALS: TEMP 37; Ht 157.5 cm; Wt 79.5 kg
[2016-07-12] MEDS ORDERED: ONDANSETRON HOME PACK 4MG OD TAB PO ONE (20:15)
[2016-07-12] MEDS ORDERED: RIVAROXABAN TAB 15 MG TAB PO ONE (20:15)
[2016-07-12] MEDS ORDERED: ONDANSETRON 4MG OD TAB PO ONE (20:15)
--- NOTE | 2016-07-12 20:15 | EMERGENCY ROOM VISIT NOTE ---
History Report prepared by Homer: Jonny Hanley Under the Supervision of: Dr. Dilshad Paris D.O. First contact with patient: 19:53 Chief Complaint: CHEST PAIN Stated Complaint: CHEST PAIN/SOB, VOMITING Nursing Triage Summary: Patient reports she was discharged this afternoon after having pulmonary embolisms. Patient states "I couldn't even walk when I left here but they discharged me anyway. I vomited the whole way home. I have 2 toddlers and chasing after them my shortness of breath came back and my chest pain. I'm pretty pissed off I was discharged this way." History of Present Illness The patient is a 21 year old female who presents to the Emergency Room with complaints of persistent chest pain beginning this afternoon. She notes that she was discharged today from this hospital after being admitted for PE. She notes she was unable to walk own her own upon discharge and was dizzy. She reports she was told she was dizzy because of the pain medication. The patient was discharge on Xarelto and Tramadol. She notes the dizziness persists, and the chest pain has returned despite taking the Tramadol. She adds that some shortness of breath has also returned. The patient notes she was vomiting on the way home from the hospital earlier today, and has had difficulty keeping food down. She reports that there were no blood clots in her legs. Source of History: patient Onset: this afternoon Position: chest Quality: other (chest pain) Timing: other (persistent) Associated Symptoms: + SOB, + vomiting Note: The patient notes having dizziness. Review of Systems See HPI for pertinent positives & negatives. A total of 10 systems reviewed and were otherwise negative. Past Medical & Surgical Medical Problems: (1) Asthma (2) Benson's palsy (3) BPPV (benign paroxysmal positional vertigo) (4) History of pulmonary embolism Surgical Problems: (1) H/O nasal polypectomy (2) H/O ovarian cystectomy (3) History of tonsillectomy and adenoidectomy (4) [place] teeth extracted Family History Unobtainable family history due to adoption Social History Smoking Status: Never Smoker Alcohol Use: none Drug Use: none Marital Status: Housing Status: lives with family Current/Historical Medications Scheduled Fluticasone Propionate (Flovent Hfa), 2 PUFFS INH BID Multivitamin (Multivitamin), 1 TAB PO DAILY Probiotic Product (Probiotic), 1 CAP PO DAILY Rivaroxaban (Xarelto Starter Pack 15 & 20 mg), 1 PKT PO UD Tramadol HCl (Tramadol HCl), 50 MG PO Q6 Scheduled PRN Albuterol Hfa (Ventolin Hfa), 2 PUFFS INH Q4H PRN for Wheezing Allergies Coded Allergies: Ibuprofen (Verified Allergy, Severe, ANAPHYLAXIS, 07/11/16) Physical Exam Vital Signs Date Time Temp Pulse Resp B/P Pulse Ox O2 Delivery O2 Flow Rate FiO2 07/12/16 21:01 70 16 120/72 97 Room Air 07/12/16 19:26 37.0 85 18 117/79 99 Room Air Physical Exam CONSTITUTIONAL/VITAL SIGNS: Reviewed / noted above. GENERAL: Non-toxic in appearance. INTEGUMENTARY: Warm, dry, and [place]. HEAD: Normocephalic. EYES: without scleral icterus or trauma. ENT/OROPHARYNX: clear and moist. LYMPHADENOPATHY/NECK: Is supple without lymphadenopathy or meningismus. RESPIRATORY: Lungs clear and equal. CARDIOVASCULAR: Regular rate and rhythm. GI/ABDOMEN: Soft and nontender. No organomegaly or pulsatile mass. No rebound or guarding. Normal bowel sounds. EXTREMITIES: Warm and well perfused. BACK: No CVA tenderness. NEUROLOGICAL: Intact without focal deficits. PSYCHIATRIC: normal affect. MUSCULOSKELETAL: Normally developed with good muscle tone. Medical Decision & Procedures Medications Administered Medications (Trade) Dose Ordered Sig/Dirk Route Start Time Stop Time Status Last Admin Dose Admin Ondansetron HCl (Zofran Odt) 4 mg ONE ONCE PO 07/12/16 20:15 07/12/16 20:16 DC 07/12/16 21:03 4 MG Ondansetron HCl (ZOFRAN ODT 4MG Home Pack) 1 homepack UD ONCE PO 07/12/16 20:15 07/12/16 20:16 DC 07/12/16 21:03 1 HOMEPACK Rivaroxaban (Xarelto Tab) 15 mg ONE ONCE PO 07/12/16 20:15 07/12/16 20:16 DC 07/12/16 21:03 15 MG ECG Indication: chest pain Rate (beats per minute): 77 Rhythm: normal sinus Findings: no acute ischemic change, no ectopy ED Course 1953: Previous medical records were reviewed. The patient was evaluated in room C12B. A complete history and physical examination was performed. 2015: Ordered Xarelto Tab 15 mg PO, Ondansetron HCl 1 homepack PO, and Ondansetron HCl 4 mg PO. 2020: On reevaluation, the patient is doing well. I discussed the results and findings with the patient. She verbalized agreement of the treatment plan. The patient was discharged home. Medical Decision Differential diagnosis: Etiologies such as gastroenteritis, food borne illness, infections, appendicitis , diverticulitis, inflammatory bowel disease, obstruction, GI bleed, biliary pathology, as well as others were entertained. This is a 21-year-old female who presents to the ED with a chief complaint of some nausea and vomiting. The patient states that she has had some vomiting since going home from the hospital. She was discharged today. She states that she was unable to fill her prescription for Xaralto today and they will not have it available until tomorrow. She came in for evaluation of her symptoms. The patient's physical exam was normal. She walked back and did not have any dyspnea. Her vital signs are normal. After talking with the patient, she was comfortable going home with a prescription for some Zofran. EKG showed a normal sinus rhythm. She was given Zofran here and a Zofran ODT. She was also given a dose of Xaralto. She will return for any concerns. Impression Primary Impression: Vomiting Scribe Attestation The scribe's documentation has been prepared under my direction and personally reviewed by me in its entirety. I confirm that the note above accurately reflects all work, treatment, procedures, and medical decision making performed by me. Departure Information Dispostion Home / Self-Care Referrals Gerald Davila M.D. (PCP) Patient Instructions My [facility]
[2016-07-12 21:01] VITALS: BP 120/72; PULSE 70; O2SAT 97
[2016-12-24] MEDS ORDERED: ANT25 PO (17:31)
== END 2016-07-12 21:23 | disposition home or self-care (01) ==
LOC: C.EDB 19:23 → C.EDC 21:23
DX: R11.10 Vomiting, unspecified (principal); Z86.711 Personal history of pulmonary embolism; J45.909 Unspecified asthma, uncomplicated; G51.0 Bell's palsy; H81.10 Benign paroxysmal vertigo, unspecified ear; Z79.899 Other long term (current) drug therapy

== ENCOUNTER 2016-07-16 11:02 | Emergency (ER) | payer OTHER ==
[~2016-07-16] VITALS: Ht 157.5 cm; Wt 79.0 kg
[~2016-07-16 11:02] MED LIST changes: -NORE1TAB32 PO
[2016-07-16 11:04] VITALS: Ht 157.5 cm; Wt 79.0 kg
[2016-07-16 11:15] VITALS: O2SAT 97
--- NOTE | 2016-07-16 11:52 | EMERGENCY ROOM VISIT NOTE ---
History Report prepared by Homer: Casandra Wallace Under the Supervision of: Dr. Jhonathan Garcia M.D. First contact with patient: 11:33 Chief Complaint: CARDIAC ASSESSMENT Stated Complaint: CHEST PAIN,LEFT ARM NUMBNESS Nursing Triage Summary: Admitted last week for "multiple blood clots around my heart and in my lungs." Was put on blood thinner and was "doing better for a couple days." Woke up this AM with worsening CP, dizziness, and left arm numbness. Denies SOB. History of Present Illness The patient is a 21 year old female who presents to the Emergency Room with complaints of constant shocking chest pain beginning this morning. The patient states that she was admitted to the hospital for multiple pulmonary emboli on 07/11 and was sent home on 07/12 after her vitals were good. She reports that she has had intermittent chest pain over the last month and this morning her chest pain is worse. She complains of left arm numbness from the shoulder and down beginning 2 hours ago, dizziness, vomiting with eating, heart fluttering, burning in neck, burning in shoulder, dry mouth, lower left abdominal pain beginning yesterday, pain below the left breast, and shortness of breath. She denies any leg pain and anxiety. The patient notes that she is adopted and her biological brother is on Coumadin for an unknown reason. She reports that her admitting doctor thinks that the issue is genetic due to her high d-dimer. She states that she started control 4 weeks ago but her symptoms started prior to that and she quickly stopped the medication per her doctor's request. The patient reports that she has a bump on her chest that comes and goes that her doctor thinks is a chest muscle. She states that her doctor thought that she had anxiety and put her on a medication that she stopped because she is not anxious and it was not doing anything. Source of History: patient Onset: this morning Position: chest Quality: other (shocking) Timing: constant Associated Symptoms: + SOB, + numbness, + vomiting Note: She complains of dizziness, heart fluttering, burning in neck, burning in shoulder, dry mouth, lower left abdominal pain beginning yesterday, pain below the left breast. She denies any leg pain and anxiety. Review of Systems All systems have been listed, reviewed, and are negative other than those previously mentioned. Please see Additional Medical History Sheet. Past Medical & Surgical Medical Problems: (1) Asthma (2) Benson's palsy (3) BPPV (benign paroxysmal positional vertigo) (4) History of pulmonary embolism Surgical Problems: (1) H/O nasal polypectomy (2) H/O ovarian cystectomy (3) History of tonsillectomy and adenoidectomy (4) [place] teeth extracted Family History Unobtainable family history due to adoption Social History Smoking Status: Never Smoker Alcohol Use: none Drug Use: none Marital Status: Housing Status: lives with family Current/Historical Medications Scheduled Fluticasone Propionate (Flovent Hfa), 2 PUFFS INH BID Multivitamin (Multivitamin), 1 TAB PO DAILY Probiotic Product (Probiotic), 1 CAP PO DAILY Rivaroxaban (Xarelto Starter Pack 15 & 20 mg), 1 PKT PO UD Tramadol HCl (Tramadol HCl), 50 MG PO Q6 Scheduled PRN Albuterol Hfa (Ventolin Hfa), 2 PUFFS INH Q4H PRN for Wheezing Allergies Coded Allergies: Ibuprofen (Verified Allergy, Severe, ANAPHYLAXIS, 07/11/16) Physical Exam Vital Signs Date Time Temp Pulse Resp B/P Pulse Ox O2 Delivery O2 Flow Rate FiO2 07/16/16 13:50 73 07/16/16 12:58 88 18 129/81 99 Room Air 07/16/16 11:25 76 18 118/78 97 Room Air 07/16/16 11:18 105 07/16/16 11:15 97 Room Air 07/16/16 11:08 98 Room Air 07/16/16 11:04 37.0 103 18 116/68 98 Room Air Physical Exam GENERAL: Patient awake, alert, oriented x 3. She is anxious. Patient follows commands. Patient does not appear toxic. Patient is adequately hydrated and well-nourished. SKIN: No erythema, pallor, cyanosis or rash HEENT: Normal head, pupils equal, reactive to light and accommodation. Ears normal. Oral cavity and posterior pharynx appear normal. Neck: Without adenopathy, no neck vein distention. LUNGS: Clear to auscultation. No wheezes, no rales, no rhonchi. CHEST: Chest wall is non-tender to palpation. HEART: No murmurs. No gallops. No rubs ABDOMEN: No masses, no rebound, no hepatomegaly or splenomegaly. EXTREMITIES: No signs of trauma. No pedal or pretibial edema. No calf or thigh tenderness. NEUROLOGIC: Cranial nerves II-XII within normal limits. No gross motor sensory function deficits. Medical Decision & Procedures Laboratory Results 07/16/16 11:20 07/16/16 11:20 Test 07/16/16 11:20 07/16/16 11:55 Red Blood Count 4.49 M/uL (4.2-5.4) Mean Corpuscular Volume 81.7 fL (80-100) Mean Corpuscular Hemoglobin 27.4 pg (25-34) Mean Corpuscular Hemoglobin Concent 33.5 g/dl (32-36) RDW Standard Deviation 42.5 fL (36.4-46.3) RDW Coefficient of Variation 14.2 % (11.5-14.5) Mean Platelet Volume 10.0 fL (7.4-10.4) Erythrocyte Sedimentation Rate 22 mm/hr (0-21) Prothrombin Time 11.9 SECONDS (9.0-12.0) Prothromb Time International Ratio 1.1 (0.9-1.1) Activated Partial Thromboplast Time 29.8 SECONDS (21.0-31.0) Partial Thromboplastin Ratio 1.1 Anion Gap 14.0 mmol/L (3-11) Est Creatinine Clear Calc Drug Dose 109.2 ml/min Estimated GFR () 124.2 Estimated GFR (Non- 107.2 BUN/Creatinine Ratio 16.9 (10-20) Calcium Level 9.3 mg/dl (8.5-10.1) C-Reactive Protein 0.51 mg/dl (0-0.29) Thyroid Stimulating Hormone (TSH) 2.050 uIu/ml (0.300-4.500) Bedside D-Dimer > 450 ng/mlFEU (0-450) Bedside Troponin I 0.000 ng/ml (0-0.045) Laboratory results as stated above per my review. ECG Indication: chest pain Rate (beats per minute): 88 Rhythm: sinus rhythm, other (sinus arrythmia ) Findings: no acute ischemic change, no ectopy ED Course 1133: Past medical records reviewed. The patient was evaluated in room A10. A complete history and physical examination was performed. 1342: I reevaluated and updated the patient. She will follow-up tomorrow Dr. Koch. 1402: Upon reevaluation, the patient appeared to have improvement of her symptoms. I discussed today's findings with the patient. She verbalized agreement of the treatment plan. The patient was discharged home. 1432: I spoke to the patient again and reassured her that she is safe to go home. Medical Decision I considered multiple diagnoses including anxiety, myocardial infarction, chest wall pain, pericarditis, myocarditis, aortic emergencies, pulmonary embolism, congestive heart failure, GI causes, and other significant cardiopulmonary disorders. The patient is here with pain in her chest which goes into her back. She complains of some numbness in her left arm. The patient's had these symptoms off and on for a long time. She was admitted to the hospital with bilateral segmental PEs on the first of this month. The patient is currently on Xarelto. The patient also complains of some pain in her leg. The patient also had DVT studies of her legs which are negative. Blood work and EKG revealed no acute cardiopulmonary events. Her d-dimer is still elevated. I do not believe the patient requires another CT of her chest today. She should continue taking Xarelto. The patient is uncomfortable with her current primary care physician and therefore she was set up with Dr. Koch who will follow the patient within the next few days. Impression Primary Impression: Atypical chest pain Additional Impression: History of pulmonary embolism Scribe Attestation The scribe's documentation has been prepared under my direction and personally reviewed by me in its entirety. I confirm that the note above accurately reflects all work, treatment, procedures, and medical decision making performed by me. Departure Information Dispostion Home / Self-Care Referrals Gerald Davila M.D. (PCP) Forms IMPORTANT VISIT INFORMATION Patient Instructions My [facility] Additional Instructions Follow-up with Dr. Koch as scheduled. Continue taking all of your current medications including Xarelto. Problem Qualifiers
[2016-07-16 12:09] LABS: BUN/CREATININE RATIO 16.9 (10-20); C-REACTIVE PROTEIN 0.51 mg/dl (0-0.29); CALCIUM 9.3 mg/dl (8.5-10.1); CREATININE 0.78 mg/dl (0.60-1.20); POTASSIUM 3.7 mmol/L (3.5-5.1)
[2016-07-16 12:10] LABS: INR 1.1 (0.9-1.1); PARTIAL THROMBOPLASTIN RATIO 1.1; PROTHROMBIN TIME (PATIENT) 11.9 SECONDS (9.0-12.0)
[2016-07-16 12:29] LABS: THYROID STIMULATING HORMONE 2.05 uIu/ml (0.300-4.500)
[2016-07-16 12:57] LABS: HEMATOCRIT 36.7 % (37-47); MEAN CELL VOLUME 81.7 fL (80-100); MEAN CORPUSCULAR HEMOGLOBIN 27.4 pg (25-34); MEAN CORPUSCULAR HGB CONC 33.5 g/dl (32-36); PLATELET COUNT 435 K/uL (130-400); RED BLOOD COUNT 4.49 M/uL (4.2-5.4); WHITE BLOOD COUNT 5.67 K/uL (4.8-10.8)
[2016-07-16 14:45] VITALS: BP 116/69; PULSE 81; TEMP 36.7; O2SAT 100
[2016-12-24] MEDS ORDERED: ANT25 PO (17:31)
== END 2016-07-16 14:20 | disposition home or self-care (01) ==
LOC: C.EDB 11:03 → C.EDA 14:20
DX: R07.89 Other chest pain (principal); Z86.711 Personal history of pulmonary embolism; R06.02 Shortness of breath; R20.0 Anesthesia of skin; R11.10 Vomiting, unspecified

== ENCOUNTER 2016-08-01 13:10 | Emergency (ER) | payer OTHER ==
[~2016-08-01] VITALS: Ht 157.5 cm; Wt 80.6 kg
[2016-08-01 13:17] VITALS: TEMP 36.8; Ht 157.5 cm; Wt 80.6 kg
[2016-08-01] MEDS ORDERED: SODIUM CHLORIDE 0.9% 1000ML 1,000 ML IV STA (13:34)
--- NOTE | 2016-08-01 13:44 | EMERGENCY ROOM VISIT NOTE ---
History Report prepared by Homer: Mitch Aldrich Under the Supervision of: Dr. Jhonathan Garcia M.D. First contact with patient: 13:27 Chief Complaint: ABDOMINAL PAIN Stated Complaint: STOMACH PAIN ON RT SIDE NEAR BELLY BUTTON History of Present Illness The patient is a 21 year old female who presents to the Emergency Room with complaints of worsening constant right sided abdominal pain since 0400 this morning. She currently rates her discomfort as a 5/10 in severity. The patient states that she woke up with a dull pain, and it slowly got worse throughout the day. The patient states that she has had a bowel movement today, and this did not help. She states that when she sits down she additionally has some rectal pain. The patient states that last night she was nauseous, had diarrhea, and a fever. She additionally states that she has had pain in her right leg for the past few days. She denies any urinary symptoms, and she states that she has been having normal periods and has had 2 C-sections. She additionally states that she has a burning pain in her head, however this is chronic. Source of History: patient Onset: 399 this morning Position: abdomen Symptom Intensity: 5/10 Timing: constant, worsening Associated Symptoms: + diarrhea, + fevers, + nausea, No urinary symptoms Note: Associated symptoms: rectal pain, leg pain Review of Systems All systems have been listed, reviewed, and are negative other than those previously mentioned. Please see Additional Medical History Sheet. Past Medical & Surgical Medical Problems: (1) Asthma (2) Benson's palsy (3) BPPV (benign paroxysmal positional vertigo) (4) History of pulmonary embolism Surgical Problems: (1) H/O nasal polypectomy (2) H/O ovarian cystectomy (3) History of tonsillectomy and adenoidectomy (4) [place] teeth extracted Family History Unobtainable family history due to adoption Social History Smoking Status: Never Smoker Alcohol Use: none Drug Use: none Marital Status: Housing Status: lives with family Current/Historical Medications Scheduled Fluticasone Propionate (Flovent Hfa), 2 PUFFS INH BID Multivitamin (Multivitamin), 1 TAB PO DAILY Probiotic Product (Probiotic), 1 CAP PO DAILY Rivaroxaban (Xarelto Starter Pack 15 & 20 mg), 1 PKT PO UD Sulfasalazine (Azulfidine), 1,000 MG PO Q8H Sumatriptan Succinate (Imitrex), 50 MG PO PRN Tramadol HCl (Tramadol HCl), 50 MG PO Q6 Scheduled PRN Albuterol Hfa (Ventolin Hfa), 2 PUFFS INH Q4H PRN for Wheezing Ondansetron Hcl (Zofran), 4 MG PO Q6 PRN for Nausea Allergies Coded Allergies: Ibuprofen (Verified Allergy, Severe, ANAPHYLAXIS, 08/01/16) Physical Exam Vital Signs Date Time Temp Pulse Resp B/P Pulse Ox O2 Delivery O2 Flow Rate FiO2 08/01/16 18:15 77 18 111/71 96 08/01/16 15:33 80 18 103/64 100 Room Air 08/01/16 15:06 77 15 107/72 98 Room Air 08/01/16 14:06 85 20 104/64 96 Room Air 08/01/16 13:17 36.8 101 17 118/78 100 Room Air Physical Exam GENERAL: Patient awake, alert, oriented x 3. Patient follows commands. Patient does not appear toxic,a dn appears in mild t moderate distress. Patient is adequately hydrated and well-nourished. SKIN: No erythema, pallor, cyanosis or rash HEENT: Normal head, pupils equal, reactive to light and accommodation. LUNGS: Clear to auscultation. No wheezes, no rales, no rhonchi. HEART: No murmurs. No gallops. No rubs ABDOMEN: Right lower quadrant tenderness. Questionable rebounding. Positive guarding. No masses, no hepatomegaly or splenomegaly. EXTREMITIES: No signs of trauma. No pedal or pretibial edema. No calf or thigh tenderness. NEUROLOGIC: Cranial nerves II-XII within normal limits. No gross motor sensory function deficits. Medical Decision & Procedures ER Provider Diagnostic Interpretation: Radiology results as stated below per my review and radiologist interpretation: APPENDIX ULTRASOUND HISTORY: RLQ PAIN COMPARISON: None. FINDINGS: Transabdominal scanning of the right lower quadrant was performed. The appendix was not identified. There are no fluid collections or masses within the right lower quadrant. IMPRESSION: The appendix was not identified. Electronically signed by: Tom Morales M.D. 08/01/2016 2:52 PM Dictated Date/Time: 08/01/2016 2:51 PM ABDOMEN AND PELVIS CT WITH IV AND ORAL CONTRAST CT DOSE: 498.98 mGy.cm HISTORY: Right lower quadrant abdominal pain. TECHNIQUE: Multiaxial CT images of the abdomen and pelvis were performed following the use of intravenous and oral contrast. COMPARISON STUDY: Abdomen and pelvis CT 04/05/2009. FINDINGS: Normal bladder, uterus, and ovaries. Trace pelvic free fluid. No evidence for bowel obstruction. A few sigmoid diverticula. Moderate thickening involving the distal 6 cm of the terminal ileum. This is consistent with a terminal ileitis. 3 mm nodular density within the right lower lobe posteriorly on image 6 is likely benign. Additional mild dependent changes within the lung bases posteriorly. No pneumoperitoneum. No pneumatosis. Stable prominent ileocolic lymph nodes. No retroperitoneal lymphadenopathy. The liver, gallbladder, spleen, adrenal glands, kidneys, and pancreas are unremarkable. IMPRESSION: 1. Moderate thickening involving the terminal ileum consistent with a terminal ileitis. This could be due to infectious process or inflammatory bowel disease. 2. Normal appendix. 3. Trace pelvic free fluid, likely physiologic. Electronically signed by: Igor Gomez M.D. 08/01/2016 4:57 PM Dictated Date/Time: 08/01/2016 4:50 PM Laboratory Results 08/01/16 13:50 Red Blood Count 4.47, Mean Corpuscular Volume 81.4, Mean Corpuscular Hemoglobin 26.8, Mean Corpuscular Hemoglobin Concent 33.0, Mean Platelet Volume 9.7, Neutrophils (%) (Auto) 60.1, Lymphocytes (%) (Auto) 26.1, Monocytes (%) (Auto) 9.2, Eosinophils (%) (Auto) 4.0, Basophils (%) (Auto) 0.5, Neutrophils # (Auto) 4.84, Lymphocytes # (Auto) 2.10, Monocytes # (Auto) 0.74, Eosinophils # (Auto) 0.32, Basophils # (Auto) 0.04 08/01/16 13:50 Test 08/01/16 13:50 White Blood Count 8.05 K/uL (4.8-10.8) Red Blood Count 4.47 M/uL (4.2-5.4) Hemoglobin 12.0 g/dL (12.0-16.0) Hematocrit 36.4 % (37-47) Mean Corpuscular Volume 81.4 fL (80-100) Mean Corpuscular Hemoglobin 26.8 pg (25-34) Mean Corpuscular Hemoglobin Concent 33.0 g/dl (32-36) Platelet Count 329 K/uL (130-400) Mean Platelet Volume 9.7 fL (7.4-10.4) Neutrophils (%) (Auto) 60.1 % Lymphocytes (%) (Auto) 26.1 % Monocytes (%) (Auto) 9.2 % Eosinophils (%) (Auto) 4.0 % Basophils (%) (Auto) 0.5 % Neutrophils # (Auto) 4.84 K/uL (1.4-6.5) Lymphocytes # (Auto) 2.10 K/uL (1.2-3.4) Monocytes # (Auto) 0.74 K/uL (0.11-0.59) Eosinophils # (Auto) 0.32 K/uL (0-0.5) Basophils # (Auto) 0.04 K/uL (0-0.2) RDW Standard Deviation 43.0 fL (36.4-46.3) RDW Coefficient of Variation 14.5 % (11.5-14.5) Immature Granulocyte % (Auto) 0.1 % Immature Granulocyte # (Auto) 0.01 K/uL (0.00-0.02) Urine Color DK YELLOW Urine Appearance CLOUDY (CLEAR) Urine pH 5.0 (4.5-7.5) Urine Specific [place] 1.034 (1.000-1.030) Urine Protein NEG (NEG) Urine Glucose (UA) NEG (NEG) Urine Ketones TRACE (NEG) Urine Occult Blood NEG (NEG) Urine Nitrite NEG (NEG) Urine Bilirubin NEG (NEG) Urine Urobilinogen NEG (NEG) Urine Leukocyte Esterase NEG (NEG) Urine WBC (Auto) 1-5 /hpf (0-5) Urine RBC (Auto) 0-4 /hpf (0-4) Urine Hyaline Casts (Auto) 1-5 /lpf (0-5) Urine Epithelial Cells (Auto) >30 /lpf (0-5) Urine Bacteria (Auto) 1+ (NEG) Urine Mucus PRESENT (NONE PRSENT) Urine Test NEG (NEG) Anion Gap 7.0 mmol/L (3-11) Est Creatinine Clear Calc Drug Dose 97.8 ml/min Estimated GFR () 107.3 Estimated GFR (Non- 92.6 BUN/Creatinine Ratio 10.7 (10-20) Calcium Level 8.8 mg/dl (8.5-10.1) Total Bilirubin 0.2 mg/dl (0.2-1) Aspartate Amino Transf (AST/SGOT) 12 U/L (15-37) Alanine Aminotransferase (ALT/SGPT) 19 U/L (12-78) Alkaline Phosphatase 89 U/L (45-117) Total Protein 7.9 gm/dl (6.4-8.2) Albumin 3.8 gm/dl (3.4-5.0) Globulin 4.1 gm/dl (2.5-4.0) Albumin/Globulin Ratio 0.9 (0.9-2) Laboratory results as stated above per my review. Medications Administered Medications (Trade) Dose Ordered Sig/Dirk Route Start Time Stop Time Status Last Admin Dose Admin Ondansetron HCl 4 mg 4 mg PRN PRN IV 08/01/16 13:45 08/31/16 13:44 08/01/16 15:30 4 MG Sodium Chloride (Nss 1000ml) 1,000 ml @ 500 mls/hr Q2H STAT IV 08/01/16 13:34 08/01/16 15:33 DC 08/01/16 13:57 500 MLS/HR Morphine Sulfate (MoRPHine SULFATE INJ) 4 mg STK-MED ONCE .ROUTE 08/01/16 13:52 08/01/16 13:55 DC 08/01/16 13:59 4 MG Morphine Sulfate (MoRPHine SULFATE INJ) 2 mg STK-MED ONCE .ROUTE 08/01/16 13:52 08/01/16 13:56 DC 08/01/16 13:58 2 MG Morphine Sulfate (MoRPHine SULFATE INJ) 4 mg STK-MED ONCE .ROUTE 08/01/16 15:24 08/01/16 15:27 DC 08/01/16 15:31 4 MG Morphine Sulfate (MoRPHine SULFATE INJ) 2 mg STK-MED ONCE .ROUTE 08/01/16 15:24 08/01/16 15:27 DC 08/01/16 15:31 2 MG ED Course 1327: Past medical records reviewed. The patient was evaluated in room B6. A complete history and physical examination was performed. 1334: Sodium Chloride 1000 ml @ 500 mls/hr IV 1345: Zofran Inj IV 1352: Morphine Sulfate 2mg IV, Morphine Sulfate 4mg IV 1522: I reevaluated the patient. 1524: Morphine Sulfate 2mg IV, Morphine Sulfate 4mg IV 1726: Upon reevaluation, the patient appeared to have improvement of her symptoms. I discussed today's findings with her. She verbalized agreement of the treatment plan. She was discharged home. Medical Decision Nurses notes reviewed. Medical history sheet reviewed. Differential diagnosis includes but is not limited to: appendicitis, gastroenteritis, ovarian cyst/ torsion, and urinary tract infection. The patient is here with right lower quadrant abdominal pain. Ultrasound did not adequately visualize the appendix therefore a CT was performed. She does appear to have some ileitis but no appendicitis. The patient's white count was not elevated. The patient does have some nausea. The patient will be started on Azulfidine. She will require close follow-up by her family physician. Impression Primary Impression: Ileitis, terminal Scribe Attestation The scribe's documentation has been prepared under my direction and personally reviewed by me in its entirety. I confirm that the note above accurately reflects all work, treatment, procedures, and medical decision making performed by me. Departure Information Dispostion Home / Self-Care Prescriptions Ondansetron Hcl (ZOFRAN) 4 Mg Tab 4 MG PO Q6 Y for Nausea, #20 TAB Prov: Jhonathan Garcia M.D. 08/01/16 Sulfasalazine (Azulfidine) 500 Mg Tab 1000 MG PO Q8H, #60 TAB Prov: Jhonathan Garcia M.D. 08/01/16 Referrals Gerald Davila M.D. (PCP) Forms HOME CARE DOCUMENTATION FORM, IMPORTANT VISIT INFORMATION Patient Instructions My [facility], Sulfasalazine Oral tablet Additional Instructions 1000 mg of Azulfadine three times per day. 1 Zofran every 6 hours as needed for nausea. Follow up with your family physician within the next 7 days. Drink extra fluids.
[2016-08-01] MEDS ORDERED: MoRPHine SULFATE 10 MG/ML CARP/VIAL IV PRN (13:45)
[2016-08-01] MEDS ORDERED: OPTIRAY 320 IV PRN (13:45)
[2016-08-01] MEDS ORDERED: MoRPHine SULFATE 2 MG/ML CARP ONE ×2 (13:52→15:24)
[2016-08-01] MEDS ORDERED: MoRPHine SULFATE 4 MG/ML 1 ML CARP\\VIAL ONE ×2 (13:52→15:24)
[2016-08-01] MEDS: ONDANSETRON INJ 2 MG/ML 2 ML VIAL IV PRN ×2 (13:58→15:30)
[2016-08-01] MEDS ORDERED: SUMA50TA15 PO (14:02)
[2016-08-01 14:03] LABS: BASO % 0.5 %; BASO ABS # 0.04 K/uL (0-0.2); COMPLETE YES; HEMATOCRIT 36.4 % (37-47); IG% 0.1 %; LYMPH % 26.1 %; MEAN CELL VOLUME 81.4 fL (80-100); MEAN CORPUSCULAR HEMOGLOBIN 26.8 pg (25-34); MEAN PLATELET VOLUME 9.7 fL (7.4-10.4); MONO % 9.2 %; NEUT % 60.1 %; PLATELET COUNT 329 K/uL (130-400); RED BLOOD COUNT 4.47 M/uL (4.2-5.4); WHITE BLOOD COUNT 8.05 K/uL (4.8-10.8)
[2016-08-01 14:18] LABS: PREG INTERNAL NEGATIVE QC NEG CLEAR BACKGROUND; PREG INTERNAL POSITIVE QC POS CONTROL LINE
[2016-08-01 14:20] LABS: URINE APPEARANCE CLOUDY (CLEAR); URINE BILIRUBIN NEG (NEG); URINE COLOR DK YELLOW; URINE EPITHELIAL CELL AUTO >30 /lpf (0-5); URINE NITRITE NEG (NEG); URINE SPECIFIC GRAVITY 1.034 (1.000-1.030); UROBILINOGEN NEG (NEG); ZZUR CULT IF INDIC CLEAN CATCH YES
[2016-08-01 14:22] LABS: BUN/CREATININE RATIO 10.7 (10-20); CALCIUM 8.8 mg/dl (8.5-10.1); CREATININE 0.88 mg/dl (0.60-1.20); POTASSIUM 3.9 mmol/L (3.5-5.1)
[2016-08-01 14:25] LABS: ALB/GLOB RATIO 0.9 (0.9-2); MANUAL MICROSCOPIC REQUIRED? NO; REVIEW REQ? YES
[2016-08-01 14:34] LABS: URINE MUCUS PRESENT (NONE PRSENT)
--- NOTE | 2016-08-01 14:53 | DIAGNOSTIC IMAGING REPORT ---
APPENDIX ULTRASOUND HISTORY: RLQ PAIN COMPARISON: None. FINDINGS: Transabdominal scanning of the right lower quadrant was performed. The appendix was not identified. There are no fluid collections or masses within the right lower quadrant. IMPRESSION: The appendix was not identified. Electronically signed by: Tom Morales M.D. 08/01/2016 2:52 PM Dictated Date/Time: 08/01/2016 2:51 PM
--- NOTE | 2016-08-01 16:58 | DIAGNOSTIC IMAGING REPORT ---
ABDOMEN AND PELVIS CT WITH IV AND ORAL CONTRAST CT DOSE: 498.98 mGy.cm HISTORY: Right lower quadrant abdominal pain. TECHNIQUE: Multiaxial CT images of the abdomen and pelvis were performed following the use of intravenous and oral contrast. COMPARISON STUDY: Abdomen and pelvis CT 04/05/2009. FINDINGS: Normal bladder, uterus, and ovaries. Trace pelvic free fluid. No evidence for bowel obstruction. A few sigmoid diverticula. Moderate thickening involving the distal 6 cm of the terminal ileum. This is consistent with a terminal ileitis. 3 mm nodular density within the right lower lobe posteriorly on image 6 is likely benign. Additional mild dependent changes within the lung bases posteriorly. No pneumoperitoneum. No pneumatosis. Stable prominent ileocolic lymph nodes. No retroperitoneal lymphadenopathy. The liver, gallbladder, spleen, adrenal glands, kidneys, and pancreas are unremarkable. IMPRESSION: 1. Moderate thickening involving the terminal ileum consistent with a terminal ileitis. This could be due to infectious process or inflammatory bowel disease. 2. Normal appendix. 3. Trace pelvic free fluid, likely physiologic. Electronically signed by: Igor Gomez M.D. 08/01/2016 4:57 PM Dictated Date/Time: 08/01/2016 4:50 PM
[2016-08-01] MEDS ORDERED: SULF500T36 PO (17:51)
[2016-08-01] MEDS ORDERED: ONDA4TAB46 PO (17:51)
[2016-08-01 18:15] VITALS: BP 111/71; PULSE 77; O2SAT 96
[2016-12-24] MEDS ORDERED: ANT25 PO (17:31)
== END 2016-08-01 18:17 | disposition home or self-care (01) ==
LOC: C.EDB 13:12
DX: K50.00 Crohn's disease of small intestine without complications (principal); J45.909 Unspecified asthma, uncomplicated; Z86.711 Personal history of pulmonary embolism

== ENCOUNTER 2016-08-10 14:34 | Emergency (ER) | payer OTHER ==
[~2016-08-10] VITALS: Ht 154.9 cm; Wt 81.6 kg
[~2016-08-10 14:34] MED LIST changes: -MISCCAP80 PO; -MULT-506 PO; +ONDA4TAB46 PO; +SULF500T36 PO; +SUMA50TA15 PO
[2016-08-10 14:57] VITALS: TEMP 37; Ht 154.9 cm; Wt 81.6 kg
[2016-08-10] MEDS ORDERED: DICY20TA10 PO (15:16)
[2016-08-10 15:27] LABS: ISTAT CREATININE 0.6 mg/dl (0.6-1.3); ISTAT HEMOGLOBIN 11.6 g/dl (12.0-16.0); ISTAT IONIZED CALCIUM 1.19 mmol/l (1.12-1.32)
--- NOTE | 2016-08-10 15:29 | EMERGENCY ROOM VISIT NOTE ---
History Report prepared by Homer: Nedra Huff Under the Supervision of: Dr. Dilshad Paris D.O. First contact with patient: 14:42 Stated Complaint: SYNCOPE History of Present Illness The patient is a 21 year old female who presents to the Emergency Room with complaints of an episode of dizziness which occurred RN PALLIATIVE CARE. She was dropping off a stool sample at her doctor's office when she began to feel dizzy. She reports she could hear her voice in her head and her body felt heavy. Her legs currently still feel like jelly and her feet are cold. She also has some abdominal pain right now which started after the dizziness. She denies any back pain. She has been eating and drinking normally. She has had multiple PEs and has been recently diagnosed with Crohn's disease. She attributes her abdominal pain to her Crohn's. She is also anemic. She is currently on a blood thinner and iron. Source of History: patient Onset: RN PALLIATIVE CARE Position: other (global) Quality: other (dizziness) Timing: other (episodic) Associated Symptoms: + abdominal pain, No back pain Note: Pt reports body feeling heavy, legs feel like jelly, and cold feet. Review of Systems See HPI for pertinent positives & negatives. A total of 10 systems reviewed and were otherwise negative. Past Medical & Surgical Medical Problems: (1) Asthma (2) Benson's palsy (3) BPPV (benign paroxysmal positional vertigo) (4) Crohns disease (5) History of pulmonary embolism Surgical Problems: (1) H/O nasal polypectomy (2) H/O ovarian cystectomy (3) History of tonsillectomy and adenoidectomy (4) [place] teeth extracted Family History Unobtainable family history due to adoption Social History Smoking Status: Never Smoker Alcohol Use: none Drug Use: none Marital Status: Housing Status: lives with family Current/Historical Medications Scheduled Dicyclomine Hcl (Dicyclomine Hcl), 20 MG PO BID Fluticasone Propionate (Flovent Hfa), 2 PUFFS INH BID Multivitamin (Multivitamin), 1 TAB PO DAILY Probiotic Product (Probiotic), 1 CAP PO DAILY Rivaroxaban (Xarelto Starter Pack 15 & 20 mg), 1 PKT PO UD Sumatriptan Succinate (Imitrex), 50 MG PO PRN Tramadol HCl (Tramadol HCl), 50 MG PO Q6 Scheduled PRN Albuterol Hfa (Ventolin Hfa), 2 PUFFS INH Q4H PRN for Wheezing Ondansetron Hcl (Zofran), 4 MG PO Q6 PRN for Nausea Allergies Coded Allergies: Ibuprofen (Verified Allergy, Severe, ANAPHYLAXIS, 08/10/16) Physical Exam Vital Signs Date Time Temp Pulse Resp B/P Pulse Ox O2 Delivery O2 Flow Rate FiO2 08/10/16 15:50 86 16 105/64 99 Room Air 08/10/16 15:17 68 96/60 74 104/57 74 96/54 08/10/16 14:57 37.0 64 18 113/48 100 Room Air 08/10/16 14:57 90 Physical Exam CONSTITUTIONAL/VITAL SIGNS: Reviewed / noted above. GENERAL: Non-toxic in appearance. INTEGUMENTARY: Warm, dry, and [place]. HEAD: Normocephalic. EYES: without scleral icterus or trauma. ENT/OROPHARYNX: clear and moist. LYMPHADENOPATHY/NECK: Is supple without lymphadenopathy or meningismus. RESPIRATORY: Lungs clear and equal. CARDIOVASCULAR: Regular rate and rhythm. GI/ABDOMEN: Soft and nontender. No organomegaly or pulsatile mass. No rebound or guarding. Normal bowel sounds. EXTREMITIES: Warm and well perfused. BACK: No CVA tenderness. NEUROLOGICAL: Intact without focal deficits. PSYCHIATRIC: normal affect. MUSCULOSKELETAL: Normally developed with good muscle tone. Medical Decision & Procedures Laboratory Results Test 08/10/16 15:15 Bedside Hemoglobin 11.6 g/dl (12.0-16.0) Bedside Hematocrit 34 % (37-47) Bedside Sodium 141 mEq/L (135-144) Bedside Potassium 3.8 mEq/L (3.3-5.0) Bedside Chloride 104 mEq/L (101-112) Bedside Total CO2 20 mEq/l (24-31) Anion Gap 22.0 mmol/L (16-25) Bedside Blood Urea Nitrogen 10 mg/dl (7-18) Bedside Creatinine 0.6 mg/dl (0.6-1.3) Bedside Glucose (other) 85 mg/dl (70-99) Bedside Ionized Calcium (Kimmy) 1.19 mmol/l (1.12-1.32) Laboratory results as stated above per my review. ECG Indication: syncope Rate (beats per minute): 89 Rhythm: normal sinus Findings: no ectopy, other (no acute injury) ED Course 1455: Previous medical records were reviewed. The patient was evaluated in room B7. A complete history and physical examination was performed. 1532: On reevaluation, the patient is resting comfortably. I discussed the results and findings with the patient. She verbalized agreement of the treatment plan. She was discharged home. Medical Decision Differential includes acute cardiac dysrhythmia, microinfarction, CVA, TIA, dehydration, anemia, electrolyte disturbance, seizure, trauma, intracranial bleeding, acute vascular catastrophe, thoracic aortic dissection, PE, abdominal aortic aneurysm rupture, ectopic rupture. This is a 21-year-old female who presents to the ED with a chief complaint of feeling lightheaded when walking into [employer] office to give a stool sample. The patient states that her whole body became weak and she felt like she was getting dizzy. She states that she felt like she was going to pass out. She did not pass out. She sat down. She is brought here for evaluation. She states that her legs feel little funny. She has been eating and drinking okay. She denies any recent illness or fevers. She has had recent diagnosis of Crohn's disease and has also had PE several weeks ago. She denies any new chest pains or shortness of breath. She denies any other significant symptoms. Vital signs are stable. Orthostatic vital signs are normal. I-STAT labs are unremarkable. The patient also states she had some outpatient labs from [facility] yesterday. The patient has no weakness in her lower extremities. She was able to walk to the bathroom unassisted. She has good pulses in both lower extremities and there is no swelling. The patient is felt to be stable for discharge. Impression Primary Impression: Light headed Scribe Attestation The scribe's documentation has been prepared under my direction and personally reviewed by me in its entirety. I confirm that the note above accurately reflects all work, treatment, procedures, and medical decision making performed by me. Departure Information Dispostion Home / Self-Care Referrals Gerald Davila M.D. (PCP) Additional Instructions Follow-up with your doctor for further care and evaluation in 1-2 days. Return to the emergency department for worsening or new symptoms or any concerns. You have been examined and treated today on an emergency basis only. This is not a substitute for, or an effort to provide, complete comprehensive medical care. It is impossible to recognize and treat all injuries or illnesses in a single emergency department visit. It is therefore important that you follow up closely with your doctor. Call as soon as possible for an appointment.
[2016-08-10 15:50] VITALS: BP 105/64; PULSE 86; O2SAT 99
[2016-12-24] MEDS ORDERED: ANT25 PO (17:31)
[2017-03-02] MEDS ORDERED: LPR25 PO (16:51)
[2017-03-03] MEDS ORDERED: TPRSR25 PO (10:42)
[2017-03-21] MEDS ORDERED: MULT-506 PO (14:00)
[2017-03-21] MEDS ORDERED: MISCCAP80 PO (14:00)
[2017-04-01] MEDS ORDERED: VNTHFA/IN INH (15:41)
== END 2016-08-10 15:51 | disposition home or self-care (01) ==
LOC: EDBD 14:34 → C.EDB 14:36
DX: R42 Dizziness and giddiness (principal); J45.909 Unspecified asthma, uncomplicated; K50.90 Crohn's disease, unspecified, without complications; G51.0 Bell's palsy; Z98.890 Other specified postprocedural states; Z79.899 Other long term (current) drug therapy; Z88.6 Allergy status to analgesic agent

== ENCOUNTER 2016-11-19 10:38 | Emergency (ER) | payer OTHER ==
[~2016-11-19] VITALS: Ht 156.2 cm; Wt 79.0 kg
[~2016-11-19 10:38] MED LIST changes: +DICY20TA10 PO; +MISCCAP80 PO; +MULT-506 PO; -SULF500T36 PO
[2016-11-19 11:03] VITALS: TEMP 37.3; Ht 156.2 cm; Wt 79.0 kg
[2016-11-19 11:05] VITALS: O2SAT 98
[2016-11-19] MEDS ORDERED: SODIUM CHLORIDE 0.9% 1000ML 1,000 ML IV STA (11:25)
[2016-11-19] MEDS ORDERED: PNT500 PO (11:29)
[2016-11-19] MEDS ORDERED: RIVA1TAB4 PO (11:29)
[2016-11-19] MEDS ORDERED: OPTIRAY 320 IV PRN (11:30)
[2016-11-19 11:34] LABS: BASO % 0.7 %; BASO ABS # 0.07 K/uL (0-0.2); COMPLETE YES; HEMATOCRIT 36.8 % (37-47); IG% 0.2 %; LYMPH % 25.3 %; LYMPH ABS # 2.68 K/uL (1.2-3.4); MEAN CELL VOLUME 80.9 fL (80-100); MEAN CORPUSCULAR HEMOGLOBIN 25.7 pg (25-34); MEAN CORPUSCULAR HGB CONC 31.8 g/dl (32-36); MEAN PLATELET VOLUME 10.1 fL (7.4-10.4); MONO % 8.5 %; NEUT % 62.3 %; PLATELET COUNT 371 K/uL (130-400); RED BLOOD COUNT 4.55 M/uL (4.2-5.4); WHITE BLOOD COUNT 10.58 K/uL (4.8-10.8)
--- NOTE | 2016-11-19 11:55 | DIAGNOSTIC IMAGING REPORT ---
CHEST ONE VIEW PORTABLE CLINICAL HISTORY: Chest Pain COMPARISON STUDY: Chest CT and chest radiograph July 11, 2016. FINDINGS: Lung volumes are normal. There is no pneumothorax or pleural effusion. Cardiomediastinal silhouette is normal. Pulmonary vascularity is normal. There may be minimal right lower lung opacity. IMPRESSION: Mild nonspecific right lower lung opacity. Electronically signed by: Patrick Swain M.D. 11/19/2016 11:53 AM Dictated Date/Time: 11/19/2016 11:53 AMa
[2016-11-19 11:57] LABS: BLOOD UREA NITROGEN 12 mg/dl (7-18); BUN/CREATININE RATIO 14.2 (10-20); CALCIUM 9.4 mg/dl (8.5-10.1); CARBON DIOXIDE 22 mmol/L (21-32); CHLORIDE 106 mmol/L (98-107); CREATININE 0.83 mg/dl (0.60-1.20); GLUCOSE 90 mg/dl (70-99); POTASSIUM 3.6 mmol/L (3.5-5.1); SODIUM 138 mmol/L (136-145)
[2016-11-19 12:01] LABS: CKMB/CK RATIO 0.5 (0-3.0)
--- NOTE | 2016-11-19 12:22 | DIAGNOSTIC IMAGING REPORT ---
(CHEST FOR PE) ANGIO WITH CT DOSE: 469.29 mGy.cm HISTORY: 21-year-old female presents with chest pain and history of pulmonary embolus. TECHNIQUE: Multiple CTA images of the chest were obtained after the intravenous administration of 83 ml optiray 320. Coronal and sagittal MIPS were obtained from the axial data set and were submitted for review. Comparison: Portable chest radiograph of same day, CTA PE study 07/11/2016 Findings: CTA: There is adequate opacification of the pulmonary arteries to the level of the subsegmental branches without convincing evidence of acute pulmonary embolism. There is resolution of the previously described pulmonary emboli seen on study dated 07/11/2016. The thoracic aorta is normal in course and caliber. CT CHEST: No axillary or mediastinal adenopathy by CT size criteria. Heart size is normal. The lungs are clear. There is no pneumothorax or pleural effusion. The imaged upper abdominal structures are normal. The osseous structures appear intact. IMPRESSION: No acute cardiopulmonary process, specifically no acute aortic pathology or evidence of pulmonary thromboembolic disease. Electronically signed by: Slim Saucedo 11/19/2016 12:21 PM Dictated Date/Time: 11/19/2016 12:17 PM
[2016-11-19 12:51] VITALS: BP 108/73; PULSE 64; O2SAT 100
--- NOTE | 2016-11-19 17:22 | EMERGENCY ROOM VISIT NOTE ---
History Report prepared by Homer: Bobbi Cheng Under the Supervision of: Dr. Collin Alanis D.O. First contact with patient: 11:04 Chief Complaint: CHEST PAIN Stated Complaint: CHEST PAIN History of Present Illness The patient is a 21 year old female who presents to the Emergency Room with complaints of constant chest pain beginning 23 hours prior to arrival. The patient state around noon yesterday she experienced chest pain. Last night the patient vomited 3 times due to the amount of pain she was in. The patient describes the pain as a deep pain. She notes that deep breathing worsens the pain. She has a history of PE and notes that her pain is similar to when she had the PE. She is on Xarelto and takes as prescribed. She notes the cause of the PE is unknown. Pt denies headache, change in vision, fevers, shortness of breath, nausea, diarrhea, pain with urination, vaginal discharge, vaginal bleeding and melena. No smoking, swelling, recent travel, recent surgeries, control and or coughing up blood. Source of History: patient Onset: 23 hours [employer]ECTIVE [employer]GE[employer] Position: chest Quality: other (deep pain) Timing: constant Modifying Factors (Worsening): breathing Associated Symptoms: + vomiting, No fevers, No headache, No SOB, No nausea Review of Systems See HPI for pertinent positives & negatives. A total of 10 systems reviewed and were otherwise negative. Past Medical & Surgical Medical Problems: (1) Asthma (2) Benson's palsy (3) BPPV (benign paroxysmal positional vertigo) (4) Crohns disease (5) History of pulmonary embolism Surgical Problems: (1) H/O nasal polypectomy (2) H/O ovarian cystectomy (3) History of tonsillectomy and adenoidectomy (4) [place] teeth extracted Family History Unobtainable family history due to adoption Social History Smoking Status: Never Smoker Alcohol Use: none Drug Use: none Marital Status: Housing Status: lives with family Current/Historical Medications Scheduled Dicyclomine Hcl (Dicyclomine Hcl), 20 MG PO BID Fluticasone Propionate (Flovent Hfa), 2 PUFFS INH BID Mesalamine (Pentasa), 1,000 MG PO QID Multivitamin (Multivitamin), 1 TAB PO DAILY Probiotic Product (Probiotic), 1 CAP PO DAILY Rivaroxaban (Xarelto), 20 MG PO QDD Sumatriptan Succinate (Imitrex), 50 MG PO PRN Scheduled PRN Albuterol Hfa (Ventolin Hfa), 2 PUFFS INH Q4H PRN for Wheezing Ondansetron Hcl (Zofran), 4 MG PO Q6 PRN for Nausea Allergies Coded Allergies: Ibuprofen (Verified Allergy, Severe, ANAPHYLAXIS, 11/19/16) Physical Exam Vital Signs Date Time Temp Pulse Resp B/P (MAP) Pulse Ox O2 Delivery O2 Flow Rate FiO2 11/19/16 12:51 64 20 108/73 100 Room Air 11/19/16 11:05 98 Room Air 11/19/16 11:05 98 Room Air 11/19/16 11:03 37.3 84 21 116/75 99 Room Air 11/19/16 10:57 83 Physical Exam GENERAL: sitting up in bed, alert, well appearing, well nourished, no distress, non-toxic EYE EXAM: normal conjunctiva OROPHARYNX: no exudate, no erythema, lips, buccal mucosa, and tongue normal and mucous membranes are moist NECK: supple, no nuchal rigidity, no adenopathy, non-tender LUNGS: Clear to auscultation. Normal chest wall mechanics HEART: no murmurs, S1 normal and S2 normal CHEST: Reproducible anterior chest wall pain just left of sternum at ribs 3 and 4. ABDOMEN: abdomen soft, non-tender, normo-active bowel sounds, no masses, no rebound or guarding. BACK: Back is symmetrical on inspection and there is no deformity, no midline tenderness, no CVA tenderness. SKIN: no rashes and no bruising UPPER EXTREMITIES: upper extremities are grossly normal. LOWER EXTREMITIES: No pitting edema. Calves equal bilaterally. NEURO EXAM: Normal sensorium, cranial nerves II-XII grossly intact, normal speech, no gross weakness of arms, no gross weakness of legs. Medical Decision & Procedures ER Provider Diagnostic Interpretation: Radiology results as stated below per my review and the radiologist's interpretation: (CHEST FOR PE) ANGIO WITH CT DOSE: 469.29 mGy.cm HISTORY: 21-year-old female presents with chest pain and history of pulmonary embolus. TECHNIQUE: Multiple CTA images of the chest were obtained after the intravenous administration of 83 ml optiray 320. Coronal and sagittal MIPS were obtained from the axial data set and were submitted for review. Comparison: Portable chest radiograph of same day, CTA PE study 07/11/2016 Findings: CTA: There is adequate opacification of the pulmonary arteries to the level of the subsegmental branches without convincing evidence of acute pulmonary embolism. There is resolution of the previously described pulmonary emboli seen on study dated 07/11/2016. The thoracic aorta is normal in course and caliber. CT CHEST: No axillary or mediastinal adenopathy by CT size criteria. Heart size is normal. The lungs are clear. There is no pneumothorax or pleural effusion. The imaged upper abdominal structures are normal. The osseous structures appear intact. IMPRESSION: No acute cardiopulmonary process, specifically no acute aortic pathology or evidence of pulmonary thromboembolic disease. Electronically signed by: Slim Saucedo 11/19/2016 12:21 PM Dictated Date/Time: 11/19/2016 12:17 PM CHEST ONE VIEW PORTABLE CLINICAL HISTORY: Chest Pain COMPARISON STUDY: Chest CT and chest radiograph July 11, 2016. FINDINGS: Lung volumes are normal. There is no pneumothorax or pleural effusion. Cardiomediastinal silhouette is normal. Pulmonary vascularity is normal. There may be minimal right lower lung opacity. IMPRESSION: Mild nonspecific right lower lung opacity. Electronically signed by: Patrick Swain M.D. 11/19/2016 11:53 AM Dictated Date/Time: 11/19/2016 11:53 AMa Laboratory Results 11/19/16 10:50 Red Blood Count 4.55, Mean Corpuscular Volume 80.9, Mean Corpuscular Hemoglobin 25.7, Mean Corpuscular Hemoglobin Concent 31.8, Mean Platelet Volume 10.1, Neutrophils (%) (Auto) 62.3, Lymphocytes (%) (Auto) 25.3, Monocytes (%) (Auto) 8.5, Eosinophils (%) (Auto) 3.0, Basophils (%) (Auto) 0.7, Neutrophils # (Auto) 6.59, Lymphocytes # (Auto) 2.68, Monocytes # (Auto) 0.90, Eosinophils # (Auto) 0.32, Basophils # (Auto) 0.07 11/19/16 10:50 Test 11/19/16 10:50 White Blood Count 10.58 K/uL (4.8-10.8) Red Blood Count 4.55 M/uL (4.2-5.4) Hemoglobin 11.7 g/dL (12.0-16.0) Hematocrit 36.8 % (37-47) Mean Corpuscular Volume 80.9 fL (80-100) Mean Corpuscular Hemoglobin 25.7 pg (25-34) Mean Corpuscular Hemoglobin Concent 31.8 g/dl (32-36) Platelet Count 371 K/uL (130-400) Mean Platelet Volume 10.1 fL (7.4-10.4) Neutrophils (%) (Auto) 62.3 % Lymphocytes (%) (Auto) 25.3 % Monocytes (%) (Auto) 8.5 % Eosinophils (%) (Auto) 3.0 % Basophils (%) (Auto) 0.7 % Neutrophils # (Auto) 6.59 K/uL (1.4-6.5) Lymphocytes # (Auto) 2.68 K/uL (1.2-3.4) Monocytes # (Auto) 0.90 K/uL (0.11-0.59) Eosinophils # (Auto) 0.32 K/uL (0-0.5) Basophils # (Auto) 0.07 K/uL (0-0.2) RDW Standard Deviation 46.7 fL (36.4-46.3) RDW Coefficient of Variation 15.9 % (11.5-14.5) Immature Granulocyte % (Auto) 0.2 % Immature Granulocyte # (Auto) 0.02 K/uL (0.00-0.02) Anion Gap 10.0 mmol/L (3-11) Est Creatinine Clear Calc Drug Dose 101.5 ml/min Estimated GFR () 115.2 Estimated GFR (Non- 99.4 BUN/Creatinine Ratio 14.2 (10-20) Calcium Level 9.4 mg/dl (8.5-10.1) Total Creatine Kinase 110 U/L (26-192) Creatine Kinase MB 0.6 ng/ml (0.5-3.6) Creatine Kinase MB Ratio 0.5 (0-3.0) Troponin I < 0.015 ng/ml (0-0.045) Laboratory results per my review. Medications Administered Medications (Trade) Dose Ordered Sig/Dirk Route Start Time Stop Time Status Last Admin Dose Admin Sodium Chloride 1,000 ml @ 999 mls/hr Q1H1M STAT IV 11/19/16 11:25 11/19/16 12:25 DC 11/19/16 11:48 999 MLS/HR ECG Indication: chest pain Rate (beats per minute): 83 Rhythm: normal sinus Findings: no ectopy, other (normal axis) ED Course ED COURSE: Vital signs were reviewed and showed normal vitals. The patients medical record was reviewed The above diagnostic studies were performed and reviewed. ED treatments and interventions as stated above. 1107: The patient was evaluated in room C12. A complete history and physical examination was performed. 1125: Sodium Chloride 1,000 ml @ 999 mls/hr IV. 1223: I checked on the patient and she is feeling better. 1259: Upon reevaluation, the patient is hemodynamically stable.I discussed my findings with the patient and she understands and agrees with the treatment plan. Based on the patients age, coexisting illnesses, exam and lab findings the decision to treat as an outpatient was made. The patient remained stable while under my care. The patient appeared well at the time of discharge. Medical Decision Differential diagnoses includes but is not limited to acute coronary syndrome, myocardial infarction, pericarditis, pulmonary embolus, aortic dissection, pneumonia, pneumothorax, musculoskeletal, shingles, esophageal. Medication Reconciliation: I attest that I have personally reviewed the patient' s current medication list. Blood pressure screening: Patient was found to have normal blood pressure on screening and does not require follow-up. The patient is a 21 year old female who presents to the ED with complaints of chest pain. Patient is a 21-year-old female who presents the ER for chest pain which is been present since 2:00 yesterday. She notes this feels exactly like her previous PEs. She has been taking Xarelto and has not missed any doses recently. Previous diagnosis of multiple PEs like a secondary to control. She has no other risk factors at this time. Chest pain is purely reproducible. CT PE was negative. EKG was unremarkable. Troponin was negative with pain that has been present for greater than 8 hours. No history of diabetes, hypertension, hyperlipidemia, CAD or smoking. Patient was discharged follow with PCP and instructed take Tylenol and Motrin. Impression Primary Impression: Chest wall pain Scribe Attestation The scribe's documentation has been prepared under my direction and personally reviewed by me in its entirety. I confirm that the note above accurately reflects all work, treatment, procedures, and medical decision making performed by me. Departure Information Dispostion Home / Self-Care Referrals Gerald Davila M.D. (PCP) Forms HOME CARE DOCUMENTATION FORM, IMPORTANT VISIT INFORMATION Patient Instructions Chest Pain - [facility], [facility] Additional Instructions Please follow up with your primary care doctor with in the next 24 hours. Any worsening of your symptoms, please return to the ED immediately. This includes fevers greater than 100.4, passing out, new or worsening chest pain, shortness of breath, or any other concerning signs or symptoms from your standpoint.
[2016-12-24] MEDS ORDERED: ANT25 PO (17:31)
== END 2016-11-19 13:15 | disposition home or self-care (01) ==
LOC: C.EDB 10:41 → C.EDC 13:15
DX: R07.89 Other chest pain (principal); J45.909 Unspecified asthma, uncomplicated; K50.90 Crohn's disease, unspecified, without complications; Z86.711 Personal history of pulmonary embolism; Z98.890 Other specified postprocedural states; Z79.899 Other long term (current) drug therapy; Z88.6 Allergy status to analgesic agent

== ENCOUNTER 2016-12-07 19:40 | Emergency (ER) | payer OTHER ==
[~2016-12-07] VITALS: Ht 154.9 cm; Wt 79.8 kg
[~2016-12-07 19:40] MED LIST changes: +PNT500 PO; +RIVA1TAB4 PO; -RIVA1TAB7 PO; -ULT50X PO
[2016-12-07 19:45] VITALS: TEMP 36.9; Ht 154.9 cm; Wt 79.8 kg
[2016-12-07] MEDS ORDERED: ONDANSETRON INJ 2 MG/ML 2 ML VIAL IV STA (19:50)
[2016-12-07] MEDS ORDERED: SODIUM CHLORIDE 0.9% 1000ML 1,000 ML IV STA (19:50)
--- NOTE | 2016-12-07 20:04 | DIAGNOSTIC IMAGING REPORT ---
CHEST ONE VIEW PORTABLE CLINICAL HISTORY: ABDOMINAL PAIN/GI pain COMPARISON STUDY: 11/19/2016 FINDINGS: The bones soft tissues and hemidiaphragms are normal. The cardiomediastinal silhouette is normal. The lungs are clear. The pulmonary vasculature is normal. IMPRESSION: Negative chest. The lungs are clear The above report was generated using voice recognition software. It may contain grammatical, syntax or spelling errors. Electronically signed by: Tom Morales M.D. 12/07/2016 8:03 PM Dictated Date/Time: 12/07/2016 8:02 PM
[2016-12-07 20:17] LABS: BASO % 0.9 %; BASO ABS # 0.06 K/uL (0-0.2); COMPLETE YES; EOS % 9.7 %; IG% 0.1 %; LYMPH % 35.9 %; LYMPH ABS # 2.43 K/uL (1.2-3.4); MEAN CELL VOLUME 80.7 fL (80-100); MEAN CORPUSCULAR HEMOGLOBIN 25.6 pg (25-34); MEAN CORPUSCULAR HGB CONC 31.7 g/dl (32-36); MEAN PLATELET VOLUME 9.5 fL (7.4-10.4); MONO % 13.4 %; PLATELET COUNT 385 K/uL (130-400); RED BLOOD COUNT 4.46 M/uL (4.2-5.4); WHITE BLOOD COUNT 6.77 K/uL (4.8-10.8)
[2016-12-07 20:29] LABS: PARTIAL THROMBOPLASTIN RATIO 1.1; PROTHROMBIN TIME (PATIENT) 10.9 SECONDS (9.0-12.0)
--- NOTE | 2016-12-07 20:29 | DIAGNOSTIC IMAGING REPORT ---
HEAD WITHOUT CONTRAST (CT) CT DOSE: 638.56 mGycm HISTORY: Headache mental status change SANTOS and weakness TECHNIQUE: Multiaxial CT images of the head were performed without the use of intravenous contrast. A dose lowering technique was utilized adhering to the principles of ALARA. Comparison: 02/01/2015 Findings: The paranasal sinuses and mastoid air cells are clear. The calvarium and skull base are intact. The ventricles and sulci are within normal limits. There is no mass, hematoma, midline shift, or acute infarct. Impression: No acute intracranial abnormality. The above report was generated using voice recognition software. It may contain grammatical, syntax or spelling errors. Electronically signed by: Tom Morales M.D. 12/07/2016 8:27 PM Dictated Date/Time: 12/07/2016 8:26 PM
[2016-12-07 20:38] LABS: PREG INTERNAL NEGATIVE QC NEG CLEAR BACKGROUND; PREG INTERNAL POSITIVE QC POS CONTROL LINE
[2016-12-07 20:39] LABS: ALT/SGPT 22 U/L (12-78); AST/SGOT 12 U/L (15-37); BLOOD UREA NITROGEN 8 mg/dl (7-18); BUN/CREATININE RATIO 10.6 (10-20); CARBON DIOXIDE 27 mmol/L (21-32); CHLORIDE 110 mmol/L (98-107); CREATININE 0.77 mg/dl (0.60-1.20); GLUCOSE 97 mg/dl (70-99); MAGNESIUM 2.1 mg/dl (1.8-2.4); POTASSIUM 3.9 mmol/L (3.5-5.1); SODIUM 141 mmol/L (136-145)
[2016-12-07 20:48] LABS: ALKALINE PHOSPHATASE 81 U/L (45-117); THYROID STIMULATING HORMONE 0.945 uIu/ml (0.300-4.500)
[2016-12-07 20:52] LABS: URINE APPEARANCE CLEAR (CLEAR); URINE BILIRUBIN NEG (NEG); URINE COLOR YELLOW; URINE NITRITE NEG (NEG); URINE SPECIFIC GRAVITY 1.015 (1.000-1.030); UROBILINOGEN NEG (NEG)
[2016-12-07 21:11] LABS: MANUAL MICROSCOPIC REQUIRED? NO; REVIEW REQ? NO
[2016-12-07 21:42] VITALS: BP 111/62; PULSE 72; O2SAT 100
--- NOTE | 2016-12-07 22:28 | EMERGENCY ROOM VISIT NOTE ---
History Report prepared by Homer: Nedra Huff Under the Supervision of: Dr. Joseph Galindo D.O. First contact with patient: 19:42 Stated Complaint: CHEST PAIN/WEAKNESS, AJAY EVAL History of Present Illness The patient is a 21 year old female who presents to the Emergency Room with complaints of persistent weakness starting today at 1445. The patient woke up from a nap around 1445 today and found that she was very weak and unable to get out of bed. She also reports a burning chest pain, tingling in her feet, left sided headache, and twitching in the left side of her body. She also notes that her tongue feels thick and her head feels heavy. She notes nausea. She had diarrhea this morning, but notes that her stools are often loose. Her heart rate at rest was 122 when she checked it. She denies any vomiting. She has been on Xarelto since 4 months ago for PE. She was found to have GI bleeding with dark and tarry stools recently. She has had a scope. She was found to be anemic and started on iron transfusions. She called hematology today about her symptoms and was sent to the ED. She was told that her symptoms might be related to the iron. Her last normal menstrual period was 3 weeks ago. She denies any tobacco or alcohol use. She has been told that she might have Crohn' s disease. Source of History: patient, EMS Onset: 1445 today Position: other (global) Quality: other (weakness) Timing: other (persistent) Associated Symptoms: + headache, + chest pain, + nausea, + diarrhea, No vomiting Note: Pt reports tingling in feet, left side twitching, tongue feels thick, head feels heavy, fast heart rate. Review of Systems See HPI for pertinent positives & negatives. A total of 10 systems reviewed and were otherwise negative. Past Medical & Surgical Medical Problems: (1) Asthma (2) Benson's palsy (3) BPPV (benign paroxysmal positional vertigo) (4) Crohns disease (5) History of pulmonary embolism Surgical Problems: (1) H/O nasal polypectomy (2) H/O ovarian cystectomy (3) History of tonsillectomy and adenoidectomy (4) [place] teeth extracted Family History Unobtainable family history due to adoption Social History Smoking Status: Never Smoker Alcohol Use: none Drug Use: none Marital Status: Housing Status: lives with family Current/Historical Medications Scheduled Dicyclomine Hcl (Dicyclomine Hcl), 20 MG PO BID Fluticasone Propionate (Flovent Hfa), 2 PUFFS INH BID Mesalamine (Pentasa), 1,000 MG PO QID Multivitamin (Multivitamin), 1 TAB PO DAILY Probiotic Product (Probiotic), 1 CAP PO DAILY Rivaroxaban (Xarelto), 20 MG PO QDD Sumatriptan Succinate (Imitrex), 50 MG PO PRN Scheduled PRN Albuterol Hfa (Ventolin Hfa), 2 PUFFS INH Q4H PRN for Wheezing Ondansetron Hcl (Zofran), 4 MG PO Q6 PRN for Nausea Allergies Coded Allergies: Ibuprofen (Verified Allergy, Severe, ANAPHYLAXIS, 12/07/16) Physical Exam Vital Signs Date Time Temp Pulse Resp B/P (MAP) Pulse Ox O2 Delivery O2 Flow Rate FiO2 12/07/16 21:42 72 16 111/62 100 12/07/16 20:33 75 16 115/72 100 Room Air 12/07/16 19:53 93 12/07/16 19:45 36.9 84 16 129/94 99 Room Air Physical Exam GENERAL: Patient is awake, alert, and in no acute distress. Patient is resting comfortably and showing no signs of anxiety EYES: The conjunctivae are clear. The pupils are round and reactive. EARS, NOSE, MOUTH AND THROAT: The nose is without any evidence of any deformity. Mucous membranes are moist tongue is midline NECK: The neck is nontender and supple. RESPIRATORY: Normal respiratory effort is noted there is no evidence of wheezing rhonchi or rales CARDIOVASCULAR: Regular rate and rhythm noted there no murmurs rubs or gallops normal S1 normal S2 GASTROINTESTINAL: The abdomen is soft. Bowel sounds are present in all quadrants. Abdomen is nontender MUSCULOSKELETAL/EXTREMITIES: There is no evidence of gross deformity full range of motion is noted in the hips and shoulders SKIN: There is no obvious evidence of any rash. There are no petechiae, pallor or cyanosis noted. NEUROLOGIC: Patient is awake alert and oriented x3 strength is symmetric patellar reflexes are 2+ bilaterally Medical Decision & Procedures ER Provider Diagnostic Interpretation: X-ray results as stated below per interpretation by me and the radiologist. Radiology results as stated below per my review and radiologist interpretation: CHEST ONE VIEW PORTABLE CLINICAL HISTORY: ABDOMINAL PAIN/GI pain COMPARISON STUDY: 11/19/2016 FINDINGS: The bones soft tissues and hemidiaphragms are normal. The cardiomediastinal silhouette is normal. The lungs are clear. The pulmonary vasculature is normal. IMPRESSION: Negative chest. The lungs are clear The above report was generated using voice recognition software. It may contain grammatical, syntax or spelling errors. Electronically signed by: Tom Morales M.D. 12/07/2016 8:03 PM Dictated Date/Time: 12/07/2016 8:02 PM HEAD WITHOUT CONTRAST (CT) CT DOSE: 638.56 mGycm HISTORY: Headache mental status change SANTOS and weakness TECHNIQUE: Multiaxial CT images of the head were performed without the use of intravenous contrast. A dose lowering technique was utilized adhering to the principles of ALARA. Comparison: 02/01/2015 Findings: The paranasal sinuses and mastoid air cells are clear. The calvarium and skull base are intact. The ventricles and sulci are within normal limits. There is no mass, hematoma, midline shift, or acute infarct. Impression: No acute intracranial abnormality. The above report was generated using voice recognition software. It may contain grammatical, syntax or spelling errors. Electronically signed by: Tom Morales M.D. 12/07/2016 8:27 PM Dictated Date/Time: 12/07/2016 8:26 PM Laboratory Results 12/07/16 20:06 Red Blood Count 4.46, Mean Corpuscular Volume 80.7, Mean Corpuscular Hemoglobin 25.6, Mean Corpuscular Hemoglobin Concent 31.7, Mean Platelet Volume 9.5, Neutrophils (%) (Auto) 40.0, Lymphocytes (%) (Auto) 35.9, Monocytes (%) (Auto) 13.4, Eosinophils (%) (Auto) 9.7, Basophils (%) (Auto) 0.9, Neutrophils # (Auto ) 2.70, Lymphocytes # (Auto) 2.43, Monocytes # (Auto) 0.91, Eosinophils # (Auto ) 0.66, Basophils # (Auto) 0.06 12/07/16 20:06 Test 12/07/16 20:06 12/07/16 20:34 White Blood Count 6.77 K/uL (4.8-10.8) Red Blood Count 4.46 M/uL (4.2-5.4) Hemoglobin 11.4 g/dL (12.0-16.0) Hematocrit 36.0 % (37-47) Mean Corpuscular Volume 80.7 fL (80-100) Mean Corpuscular Hemoglobin 25.6 pg (25-34) Mean Corpuscular Hemoglobin Concent 31.7 g/dl (32-36) Platelet Count 385 K/uL (130-400) Mean Platelet Volume 9.5 fL (7.4-10.4) Neutrophils (%) (Auto) 40.0 % Lymphocytes (%) (Auto) 35.9 % Monocytes (%) (Auto) 13.4 % Eosinophils (%) (Auto) 9.7 % Basophils (%) (Auto) 0.9 % Neutrophils # (Auto) 2.70 K/uL (1.4-6.5) Lymphocytes # (Auto) 2.43 K/uL (1.2-3.4) Monocytes # (Auto) 0.91 K/uL (0.11-0.59) Eosinophils # (Auto) 0.66 K/uL (0-0.5) Basophils # (Auto) 0.06 K/uL (0-0.2) RDW Standard Deviation 45.2 fL (36.4-46.3) RDW Coefficient of Variation 15.3 % (11.5-14.5) Immature Granulocyte % (Auto) 0.1 % Immature Granulocyte # (Auto) 0.01 K/uL (0.00-0.02) Prothrombin Time 10.9 SECONDS (9.0-12.0) Prothromb Time International Ratio 1.0 (0.9-1.1) Activated Partial Thromboplast Time 28.5 SECONDS (21.0-31.0) Partial Thromboplastin Ratio 1.1 Anion Gap 4.0 mmol/L (3-11) Est Creatinine Clear Calc Drug Dose 108.7 ml/min Estimated GFR () 126.1 Estimated GFR (Non- 108.8 BUN/Creatinine Ratio 10.6 (10-20) Calcium Level 9.0 mg/dl (8.5-10.1) Magnesium Level 2.1 mg/dl (1.8-2.4) Total Bilirubin 0.1 mg/dl (0.2-1) Direct Bilirubin < 0.1 mg/dl (0-0.2) Aspartate Amino Transf (AST/SGOT) 12 U/L (15-37) Alanine Aminotransferase (ALT/SGPT) 22 U/L (12-78) Alkaline Phosphatase 81 U/L (45-117) Troponin I < 0.015 ng/ml (0-0.045) Total Protein 7.8 gm/dl (6.4-8.2) Albumin 3.8 gm/dl (3.4-5.0) Lipase 162 U/L (73-393) Thyroid Stimulating Hormone (TSH) 0.945 uIu/ml (0.300-4.500) Free Thyroxine 0.99 ng/dl (0.80-1.60) Human Chorionic Gonadotropin, Qual NEG (NEG) Urine Color YELLOW Urine Appearance CLEAR (CLEAR) Urine pH 8.0 (4.5-7.5) Urine Specific [place] 1.015 (1.000-1.030) Urine Protein NEG (NEG) Urine Glucose (UA) NEG (NEG) Urine Ketones NEG (NEG) Urine Occult Blood NEG (NEG) Urine Nitrite NEG (NEG) Urine Bilirubin NEG (NEG) Urine Urobilinogen NEG (NEG) Urine Leukocyte Esterase NEG (NEG) Laboratory results per my review. Medications Administered Medications (Trade) Dose Ordered Sig/Dirk Route Start Time Stop Time Status Last Admin Dose Admin Sodium Chloride 1,000 ml @ 999 mls/hr Q1H1M STAT IV 12/07/16 19:50 12/07/16 20:50 DC 12/07/16 20:09 999 MLS/HR Ondansetron HCl (Zofran Inj) 4 mg NOW STAT IV 12/07/16 19:50 12/07/16 19:52 DC 12/07/16 20:09 4 MG ECG Indication: chest pain, weakness Rate (beats per minute): 86 Rhythm: normal sinus Findings: no ectopy, other (no acute ST segment abnormality) Comparison ECG Date: 19-Nov-2016 Change: no significant change ED Course 1947: The patient was evaluated in room C9. A complete history and physical examination were performed. 1950: Zofran Inj 4 mg IV, NSS 1000 ml @ 999 mls/hr IV. 2119: Upon reevaluation, the patient is resting comfortably. I discussed the results and treatment plan with her. She verbalized agreement of the treatment plan. She was discharged home. Medical Decision Prior records/ancillary studies reviewed and summarized above. Nursing notes reviewed. The patient's history was concerning for weakness. Differential diagnosis: Etiologies such as metabolic, infection, hypo/hyperglycemia, electrolyte abnormalities, cardiac sources, intracerebral event, toxicologic, neurologic, as well as others were entertained. The patient is a 21-year-old female who presented to the emergency department with multiple complaints. The patient recently received an IV infusion of iron. I'm unsure of the patient's complaints are all related to this but her laboratory radiographic studies did not reveal any significant abnormalities. I did review the patient's previous electronic medical records as well as her recent visit to our emergency department. She was treated with IV fluids. She was encouraged to rest and avoid any strenuous activity. She was also encouraged to call her primary care physician to schedule a follow-up appointment. She was also encouraged to return to the emergency Department immediately if symptoms change worsen or the need arises. Medication Reconcilliation Current Medication List: was personally reviewed by me Blood Pressure Screening Patient's blood pressure: Normal blood pressure Blood pressure disposition: Did not require urgent referral Impression Primary Impression: Weakness Scribe Attestation The scribe's documentation has been prepared under my direction and personally reviewed by me in its entirety. I confirm that the note above accurately reflects all work, treatment, procedures, and medical decision making performed by me. Departure Information Dispostion Home / Self-Care Referrals Gerald Davila M.D. (PCP) Forms HOME CARE DOCUMENTATION FORM, IMPORTANT VISIT INFORMATION, WORK / SCHOOL INSTRUCTIONS Patient Instructions ED Weakness CHRIS, [facility] Additional Instructions Continue all medications as prescribed. Call your primary care physician in the morning to schedule a follow-up appointment. Avoid any strenuous activity. Return to the emergency apartment immediately if symptoms change worsen or the need arises.
[2016-12-24] MEDS ORDERED: ANT25 PO (17:31)
== END 2016-12-07 21:44 | disposition home or self-care (01) ==
LOC: EDBD 19:40 → C.EDC 19:41
DX: R53.1 Weakness (principal); Z79.01 Long term (current) use of anticoagulants; Z86.711 Personal history of pulmonary embolism; D64.9 Anemia, unspecified; J45.909 Unspecified asthma, uncomplicated; G51.0 Bell's palsy; H81.10 Benign paroxysmal vertigo, unspecified ear; K50.90 Crohn's disease, unspecified, without complications; Z79.899 Other long term (current) drug therapy

== ENCOUNTER 2016-12-23 15:10 | Observation (INO) | payer OTHER ==
[~2016-12-23] VITALS: Ht 157.5 cm; Wt 80.8 kg
[2016-12-23] MEDS ORDERED: SODIUM CHLORIDE 0.9% 1000ML 1,000 ML IV STA ×2 (15:46→17:39)
[2016-12-23] MEDS ORDERED: OPTIRAY 320 IV PRN (16:00)
--- NOTE | 2016-12-23 16:22 | DIAGNOSTIC IMAGING REPORT ---
CHEST ONE VIEW PORTABLE CLINICAL HISTORY: Chest pain. COMPARISON STUDY: Chest CT November 19, 2016 and chest radiograph December 07, 2016. FINDINGS: The lung volumes are normal. No pneumothorax or pleural effusion is present. There is no evidence of pulmonary edema. No consolidation is identified. Cardiomediastinal silhouette is normal. Appearance of the chest is unchanged. IMPRESSION: No acute cardiopulmonary findings. Electronically signed by: Patrick Swain M.D. 12/23/2016 4:21 PM Dictated Date/Time: 12/23/2016 4:20 PM
[2016-12-23 16:23] LABS: BASO % 0.7 %; BASO ABS # 0.05 K/uL (0-0.2); COMPLETE YES; HEMATOCRIT 38.8 % (37-47); IG% 0.3 %; LYMPH % 30.9 %; LYMPH ABS # 2.29 K/uL (1.2-3.4); MEAN CELL VOLUME 82.7 fL (80-100); MEAN CORPUSCULAR HEMOGLOBIN 27.3 pg (25-34); MEAN PLATELET VOLUME 9.8 fL (7.4-10.4); NEUT % 53.1 %; PLATELET COUNT 310 K/uL (130-400); RED BLOOD COUNT 4.69 M/uL (4.2-5.4)
[2016-12-23 16:31] LABS: PROTHROMBIN TIME (PATIENT) 10.7 SECONDS (9.0-12.0)
[2016-12-23 16:40] LABS: ALT/SGPT 24 U/L (12-78); BLOOD UREA NITROGEN 12 mg/dl (7-18); BUN/CREATININE RATIO 15.4 (10-20); CALCIUM 8.9 mg/dl (8.5-10.1); CARBON DIOXIDE 27 mmol/L (21-32); CHLORIDE 107 mmol/L (98-107); CREATININE 0.78 mg/dl (0.60-1.20); GLUCOSE 118 mg/dl (70-99); POTASSIUM 3.5 mmol/L (3.5-5.1); SODIUM 141 mmol/L (136-145)
[2016-12-23 16:42] LABS: ALKALINE PHOSPHATASE 72 U/L (45-117); AST/SGOT 13 U/L (15-37)
[2016-12-23 16:43] LABS: PREG INTERNAL NEGATIVE QC NEG CLEAR BACKGROUND; PREG INTERNAL POSITIVE QC POS CONTROL LINE
[2016-12-23] MEDS ORDERED: MECLIZINE HCL 25 MG TAB PO STA (17:04)
--- NOTE | 2016-12-23 17:23 | DIAGNOSTIC IMAGING REPORT ---
CT ANGIOGRAPHY OF THE CHEST, PULMONARY EMBOLUS PROTOCOL CLINICAL HISTORY: Dizzy. Vision problems. COMPARISON STUDY: Chest CT November 19, 2016 and chest radiograph performed earlier today. TECHNIQUE: Following IV administration of 85 mL of Optiray-320, helical axial images of the chest were obtained utilizing the pulmonary embolus protocol. Maximal intensity projections and sagittal and coronal reformats were viewed on an independent 3D workstation. IV contrast was administered without complication. A dose lowering technique was utilized adhering to the principles of ALARA. CT DOSE: 293.61 mGy.cm FINDINGS: No pulmonary emboli are identified. There is no evidence for thoracic ureteric dissection. The size of the heart is normal. There is no pericardial effusion. Central airways are patent. No pneumothorax or pleural effusion is present. Mild subpleural opacities represent atelectasis. There is no consolidation to suggest pneumonia. Bony thorax and upper abdomen are unremarkable. IMPRESSION: 1. No pulmonary emboli identified. 2. No acute intrathoracic findings. Electronically signed by: Patrick Swain M.D. 12/23/2016 5:22 PM Dictated Date/Time: 12/23/2016 5:17 PM
--- NOTE | 2016-12-23 18:17 | DIAGNOSTIC IMAGING REPORT ---
CT OF THE HEAD WITHOUT CONTRAST CLINICAL HISTORY: Lightheadedness, dizziness, head pressure. COMPARISON STUDY: Head CT December 07, 2016 and MRI of the brain August 12, 2015. CT DOSE: 623.48 mGy.cm TECHNIQUE: Helical axial images of the head were obtained without IV contrast. Automated exposure control was utilized for the study. A dose lowering technique was utilized adhering to the principles of ALARA. FINDINGS: No acute intracranial hemorrhage, midline shift or mass effect is present. Intravascular contrast is from recent contrast-enhanced chest CT. Ventricular system is normal. Basilar cisterns are patent. There are no extra-axial collections. Luque-white differentiation is maintained. There are no findings to suggest acute dural sinus thrombosis or acute territorial infarct. There is mild mucosal thickening of the ethmoid sinuses which is unchanged since exam of December 07, 2014. Mastoid air cells are clear. There are no calvarial abnormalities. IMPRESSION: No acute intracranial findings. Electronically signed by: Patrick Swain M.D. 12/23/2016 6:16 PM Dictated Date/Time: 12/23/2016 6:13 PM
--- NOTE | 2016-12-23 20:07 | EMERGENCY ROOM VISIT NOTE ---
ED Visit Note First contact with patient: 15:28 Patient discussed with physician assistant producer several times. Patient seen and examined at bedside by myself. Patient with reassuring labs and negative imaging, however persistent symptoms despite 2 L of fluid and persistent orthostatic vital signs. No other clear etiology or process noted. Patient able to tolerate by mouth at bedside. Patient admitted to the hospitalist for continued evaluation and treatment. No ectopy noted on telemetry while in the emergency room.
[2016-12-23] MEDS ORDERED: SUMATRIPTAN SUCCINATE 50 MG TAB PO PRN (20:15)
[2016-12-23] MEDS ORDERED: ACETAMINOPHEN 325 MG TAB PO PRN (20:15)
[2016-12-23] MEDS ORDERED: ONDANSETRON 4 MG TAB PO PRN (20:15)
[2016-12-23] MEDS ORDERED: ONDANSETRON INJ 2 MG/ML 2 ML VIAL IV PRN (20:15)
[2016-12-23] MEDS ORDERED: ALBUTEROL HFA 8 GM INHALER INH PRN (20:15)
[2016-12-23] MEDS ORDERED: IV FLUIDS COMPLETED PRN (20:30)
[2016-12-23] MEDS: FLUTICASONE HFA 220 MCG INHALER INH SCH (21:00)
--- NOTE | 2016-12-23 21:31 | HISTORY & PHYSICAL EXAMINATION ---
DATE OF ADMISSION: 12/23/2016 PRIMARY CARE PHYSICIAN: Dr. Davila CHIEF COMPLAINT: Acute dizziness with some head pressure and sweating since around 1:30 p.m. today. HISTORY OF PRESENT COMPLAINT: She is a 21-year-old female with significant past medical history of bilateral pulmonary embolism, secondary to use of OCP; Crohn disease, has been ruled out; benign paroxysmal positional vertigo, migraine variant; anxiety; and iron deficiency anemia, requiring IV iron infusion periodically; apparently has been complaining of dizziness since around 1:30 p.m. She felt sudden dizziness while she was sitting in a restaurant for the food to come, her dizziness involves all on a sudden with some pressure in the chest and followed by dizziness with sweating and also little bit of movement involving the left upper extremity. She looked pale during that time and the dizziness persisted since she was brought into the Emergency Room. She got meclizine without any relief. She was noted to have postural hypotension on the ER examination. She also complained to have some chest pain which have been off and on with this but no other significant symptoms. No fever, chills or rigors. No cough or phlegm. No abdominal pain. No nausea, no vomiting and no problem with her urine and/or bowel habits. She did not have any numbness or tingling involving any of the extremities and did not have any weakness in any side. PAST MEDICAL HISTORY: Significant for bilateral pulmonary embolism, secondary to use of OCP; hypercoagulable workup negative in July 2016; Crohn disease, that has been ruled out by EGD and colonoscopy; benign paroxysmal positional vertigo, migraine variant; anxiety; history of asthma; and also iron deficiency anemia, requiring periodic iron infusion. PAST SURGICAL HISTORY: Significant for delivery, minor dental surgery, surgery for laparoscopic diagnosis for ovarian cyst, tonsillectomy and adenoid surgery as a child. FAMILY HISTORY: Father has heart disorder, but no family history of clot disorder and/or inflammatory bowel disease. SOCIAL HISTORY: She is . She lives with her . She has 3 children. She quit smoking in 2011. She uses alcohol occasionally. REVIEW OF SYSTEMS: Other systemic review unremarkable except those mentioned in history of present complaint. ALLERGIES: IBUPROFEN. MEDICATIONS: As an outpatient, she has been on albuterol 2 puffs q. 4 hourly as needed, dicyclomine 20 mg daily, Flovent HFA 2 puffs twice daily, multivitamin 1 tablet daily, Zofran 4 mg p.o. q. 6 hourly p.r.n., Xarelto 20 mg daily, and Imitrex 50 mg as needed. PHYSICAL EXAMINATION: GENERAL: On examination in the Emergency Room, she was still complaining of some dizziness on moving the neck, but she did not have any headache or no other symptoms associated with it. VITAL SIGNS: Temperature 36.7; pulse was 80; blood pressure 117/68 supine, 121/81 sitting, and 93/70 on standing; saturation 100% on room air. HEENT: Unremarkable. NECK: Supple. No JVD, no bruit. Neck movement produced dizziness. CHEST: Clear to auscultate bilaterally. HEART: S1, S2 regular. No murmur. ABDOMEN: Soft, benign, mildly tender in the epigastrium. No organomegaly. Bowel sounds present. EXTREMITIES: Negative for any edema. MUSCULOSKELETAL: Did not show any acute arthritis involving any joint. CENTRAL NERVOUS SYSTEM: Alert, awake, oriented x3. No focal sensory and/or motor deficit appreciated. LABORATORY DATA: Noted today white count was 7.40, H&H 12.8/38.8, platelets was 310. Sodium 141, potassium 3.5, chloride 107, carbon dioxide 27, BUN 12, creatinine 0.78, random glucose 118. LFTs normal. Troponin was 0.030. HCG negative. Coagulation profile unremarkable. Chest CTA to rule out pulmonary embolism negative. Chest x-ray negative. CT of the head negative as well. EKG was in sinus rhythm, rate of 78 per minute, normal axis and no significant ST-T wave changes. IMPRESSION AND PLAN: 1. Dizziness, most likely secondary to inner ear disease or labyrinthitis. She also does have benign positional vertigo as well. Dizziness could be secondary to atypical migraine and/or postural hypotension from minor dehydration. She will be admitted to telemetry floor. She did have some chest pain, so serial cardiac enzymes to rule out possibility of ACS which is doubtful in her case and we will get a physical therapy evaluation for Donny maneuver. She will be given meclizine as needed for symptomatic relief. 2. Bilateral pulmonary embolism, that was diagnosed in July 2016. The embolism was likely secondary to use of oral contraceptive pill. Xarelto has been started and that would be continued until January. She did have hypercoagulable workup during that time, which came out to be negative. She does not have family history of any clot disease disorder. 3.Iron Deficiency Anemia requires periodic IV iron infusion. 4. Asthma, seems to be quite stable at this time. Continue with current inhaler. 5. Migraine variant, has been taking medications for that occasionally. She does not have any acute migraine at this time. 6. History of Crohn disease, but that has been ruled out. She has not been taking any mesalazine, but that is still in her med rec that should be taken off. 7. Anxiety. She does not have any acute anxiety at this time. 8. Gastrointestinal prophylaxis with Maalox, Mylanta as needed. 9. Deep venous thrombosis prophylaxis. She has been on Xarelto, will continue with that. 10. Code status. She will be a full code. In my clinical judgment, the beneficiary meets criteria as per CMS for 2 midnight stay in the hospital. MTDD
[2016-12-23] MEDS: NSS + 20MEQ KCL 1000ML 1,000 ML IV SCH (21:42)
[2016-12-23] MEDS: DICYCLOMINE HCL 20 MG TAB PO SCH (21:43)
[2016-12-23 22:09] VITALS: BP 116/78; PULSE 80; TEMP 36.9; O2SAT 98; Ht 157.5 cm; Wt 80.8 kg
[2016-12-23 23:38] VITALS: BP_SYST 114; BP_SYST 128; BP_SYST 90; BP_DIAS 58; BP_DIAS 73; BP_DIAS 90; PULSE 58; TEMP 36.6; O2SAT 99
[2016-12-24] VITALS (8 sets, daily range): BP systolic 89–115; BP diastolic 60–80; PULSE 62–80; TEMP 36.6–36.9; O2SAT 97–98
--- NOTE | 2016-12-24 00:09 | EMERGENCY ROOM VISIT NOTE ---
ED Visit Note First contact with patient: 15:28 Chief Complaint: Dizziness. History of Present Illness: Ms. Cannon is a 21-year-old black female who is brought into the ED via wheelchair complaining of dizziness. Historically patient reports she has had similar symptoms in the beginning of the year and in July 2016 was diagnosed with bilateral lower lobe pulmonary emboli. She has been on Xarelto and reports she has been feeling well. Patient reports approximately 2 hours before she arrived in the emergency department she was at a restaurant with a friend talking waiting for her food when she had an acute onset of her head falling into a left lateral position. When she attempted to straighten her head she reports she had a sensation of head heaviness. Since that time this discomfort has been constant. Additionally she noted when she had any rotational component to her neck movement she had acute dizziness with room spinning sensations; this is also been constant since its onset. She has not identified any aggravating or alleviating factors related to the symptoms except for movement or nonmovement. She has not taken any medications for these symptoms prior to arrival at the hospital. Additionally she reports, but is unsure of the timing, that she is also been experiencing a sensation of someone pushing down on her head causing pressure and that pressure going through her neck and into her chest but stops before the abdomen. This discomfort is continuous. She has not identified any aggravating or alleviating factors related to this discomfort. She has not taken any medications for this discomfort prior to arrival at the hospital. Additionally she reports when the symptoms started she reports she noticed some blackening of her vision but no complete loss, diaphoresis and feeling like her "balance is off". Additionally she reports she has been receiving IV iron for anemia and has noted that for the last few days she is having black/tarry stools. She denies chills, arlet fevers, skin eruptions, skin color changes, recent head trauma, visual changes, hearing changes, difficulty speaking, difficulty swallowing, neck pain/stiffness, upper respiratory tract symptoms, sinus congestion, ear pain/drainage, sore throat, neck pain/stiffness, cough, wheezing , shortness of breath, palpitations, orthopnea, dependent edema, recent surgery/ extended travel/inactivity, extremity swelling, joint pain/swelling. Review of Systems: As noted above in history of present illness. All body systems were reviewed and found to be negative as noted above. Past Medical History: As previously noted and asthma, Benson's palsy, Crohn's disease, iron deficiency anemia and status post nasal polypectomy, ovarian cystectomy, tonsillectomy, adenoidectomy and wisdom teeth extraction. Current Medications: Medications Dose Route/Sig Max Daily Dose Days Date Category Pentasa (Mesalamine) 500 Mg Caper 1,000 Mg PO QID 11/19/16 Reported Xarelto (Rivaroxaban) 20 Mg Tab 20 Mg PO QAM 11/19/16 Reported Dicyclomine Hcl 20 Mg Tab 20 Mg PO BID 08/10/16 Reported Zofran (Ondansetron HCl) 4 Mg Tab 4 Mg PO Q6 PRN 08/01/16 Rx Imitrex (Sumatriptan Succinate) 50 Mg Tab 50 Mg PO PRN 08/01/16 Reported Multivitamin (Multivitamins) Tab 1 Tab PO DAILY 07/11/16 Reported Probiotic (Probiotic Product) 1 Cap Cap 1 Cap PO DAILY 07/11/16 Reported Flovent Hfa (Fluticasone Propionate) 120 Puffs/09354 Mcg Aero 2 Puffs INH BID 07/11/16 Reported Ventolin Hfa (Albuterol) 200 Puffs/45245 Mcg Aers 2 Puffs INH Q4H PRN 07/11/16 Reported Allergies to Medications: Ibuprofen. Social History: Patient feels safe in her home environment; she denies tobacco use. Physical Examination: Vital Signs: Date Time Temp Pulse Resp B/P (MAP) Pulse Ox O2 Delivery O2 Flow Rate FiO2 12/23/16 20:04 86 12/23/16 19:10 81 15 12/23/16 18:40 83 20 12/23/16 18:32 85 121/70 86 134/83 99 126/74 12/23/16 18:31 126/74 12/23/16 18:30 134/83 12/23/16 18:29 121/70 12/23/16 17:40 77 13 12/23/16 17:10 75 18 100 12/23/16 17:03 88 117/68 88 121/81 105 93/70 12/23/16 17:02 93/70 12/23/16 17:01 121/81 12/23/16 17:00 117/68 12/23/16 16:40 80 16 98 12/23/16 16:10 85 15 98 12/23/16 16:05 92 12/23/16 15:48 105/48 12/23/16 15:27 134/67 12/23/16 15:13 36.7 98 18 114/79 100 Room Air Orthostatic vital signs. GENERAL: 21-year-old female in mild distress due to pain, nontoxic-appearing, afebrile and hemodynamically stable. NEUROLOGICAL: Awake, alert and oriented to person, place and time. Answering questions appropriately and following commands. Good hand eye coordination. No focal motor or sensory deficits. Cranial nerves II through XII grossly intact. Normal rapid or any movements of the hands and fingers. Good short- term and long-term recall. Normal heel dawson test. SKIN: Warm, dry and pink. No soft tissue eruptions or trauma noted. HEENT: Atraumatic and normocephalic. External ears are nontender. Auditory canals are pink and patent. Tympanic membranes are not erythematous or edematous. PERRLA. EOMI without nystagmus. Sclera white and conjunctiva pink. No drainage from naris. Oral cavity moist and pink. Pharynx is nonerythematous or edematous. Speech normal. No lymphadenopathy. Trachea midline. No jugular venous distention. No carotid bruits. BACK: No tenderness over the bony cervical and thoracic spine. 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 No CVA tenderness. THORAX: Lungs sounds are clear to auscultation and equal bilaterally with symmetrical chest wall. No wheezing, rales or rhonchi. No crepitus, tenderness , subcutaneous air or deformities noted. HEART: Regular rate and rhythm. No gallops, rubs or murmurs are appreciated. PMI is not displaced. No lifts, heaves or thrills. ABDOMEN: Obese, soft and nontender. Positive bowel sounds in all quadrants. No guarding, rigidity or organomegaly. RECTAL: No external tags or hemorrhoids. Normal rectal tone. Heme-negative stools. EXTREMITIES: Moves all extremities well on command and with purpose. All distal neurovascular statuses are intact and equal bilaterally. No calf tenderness or cords. ED Course: Patient is assessed as noted above. Since medication list was reviewed. Laboratory Testing: Test 12/23/16 16:01 12/23/16 16:08 12/23/16 16:13 Range/Units Bedside Glucose 129 70-90 mg/dl White Blood Count 7.40 4.8-10.8 K/uL Red Blood Count 4.69 4.2-5.4 M/uL Hemoglobin 12.8 12.0-16.0 g/dL Hematocrit 38.8 37-47 % Mean Corpuscular Volume 82.7 80-100 fL Mean Corpuscular Hemoglobin 27.3 25-34 pg Mean Corpuscular Hemoglobin Concent 33.0 32-36 g/dl Platelet Count 310 130-400 K/uL Mean Platelet Volume 9.8 7.4-10.4 fL Neutrophils (%) (Auto) 53.1 % Lymphocytes (%) (Auto) 30.9 % Monocytes (%) (Auto) 10.0 % Eosinophils (%) (Auto) 5.0 % Basophils (%) (Auto) 0.7 % Neutrophils # (Auto) 3.93 1.4-6.5 K/uL Lymphocytes # (Auto) 2.29 1.2-3.4 K/uL Monocytes # (Auto) 0.74 0.11-0.59 K/uL Eosinophils # (Auto) 0.37 0-0.5 K/uL Basophils # (Auto) 0.05 0-0.2 K/uL RDW Standard Deviation 54.4 36.4-46.3 fL RDW Coefficient of Variation 18.1 11.5-14.5 % Immature Granulocyte % (Auto) 0.3 % Immature Granulocyte # (Auto) 0.02 0.00-0.02 K/uL Prothrombin Time 10.7 9.0-12.0 SECONDS Prothromb Time International Ratio 1.0 0.9-1.1 Activated Partial Thromboplast Time 25.4 21.0-31.0 SECONDS Partial Thromboplastin Ratio 1.0 Sodium Level 141 136-145 mmol/L Potassium Level 3.5 3.5-5.1 mmol/L Chloride Level 107 98-107 mmol/L Carbon Dioxide Level 27 21-32 mmol/L Anion Gap 7.0 3-11 mmol/L Blood Urea Nitrogen 12 7-18 mg/dl Creatinine 0.78 0.60-1.20 mg/dl Est Creatinine Clear Calc Drug Dose 109.9 ml/min Estimated GFR () 124.2 Estimated GFR (Non- 107.2 BUN/Creatinine Ratio 15.4 10-20 Random Glucose 118 70-99 mg/dl Calcium Level 8.9 8.5-10.1 mg/dl Total Bilirubin 0.3 0.2-1 mg/dl Direct Bilirubin < 0.1 0-0.2 mg/dl Aspartate Amino Transf (AST/SGOT) 13 15-37 U/L Alanine Aminotransferase (ALT/SGPT) 24 12-78 U/L Alkaline Phosphatase 72 45-117 U/L Total Protein 7.6 6.4-8.2 gm/dl Albumin 3.7 3.4-5.0 gm/dl Lipase 137 73-393 U/L Human Chorionic Gonadotropin, Qual NEG NEG Bedside Troponin I < 0.030 0-0.045 ng/ml EKG: Was read by myself and reviewed with Dr. Baum; shows normal sinus rhythm with sinus arrhythmia. Ventricular rate 86 bpm. Normal axis and complexes. No ST changes indicating ischemia, injury or infarction. This was compared to previous and no acute changes were noted. Chest X-Rays: Were read by myself and the radiologist showing no acute infiltrates, effusions or pneumothorax. Normal heart silhouette and bony anatomy. Compared to previous and no acute changes were noted. Chest CTA: Were reviewed by myself and read by the radiologist showing no pulmonary emboli identified, no evidence of thoracic dissection, normal heart silhouette, no pericardial effusions, central airways patent, no pneumothorax or pulmonary effusion, mild subpleural opacities representing atelectasis, no consolidation, normal appearing bony anatomy and normal-appearing upper abdominal. Head CT: Was reviewed by myself and read by the radiologist and shows no acute intracranial findings. Patient was hydrated with 2 L of normal saline and received 50 mg of Meclizine by mouth for dizziness. Patient was assessed multiple times during her stay in the emergency department. Patient's case was reviewed with Dr. Baum; inability assessed the patient we agreed on diagnostic approach, treatment, disposition and plan. Patient's case was consulted with case management and Dr. Day, [facility] hospitalist; for medical observation/admission. Patient is educated about today's findings. Clinical Impression: Orthostatic vital signs. Dizziness. Decision-Making: Initially my differential diagnosis I considered benign vertigo , pulmonary embolism, intracranial bleed, mass effect, dural sinus thrombosis, arrhythmia, hypotension, and other causes. Disposition and Plan: Patient be brought in the hospital for observation/ admission by the [facility] hospitalist; please see their notes and orders for final disposition and plan.
[2016-12-24] MEDS ORDERED: NURSING VERBAL MED ORDER ONE (01:15)
[2016-12-24] MEDS: NSS + 20MEQ KCL 1000ML 1,000 ML IV SCH ×2 (05:47→17:03)
[2016-12-24] MEDS: FLUTICASONE HFA 220 MCG INHALER INH SCH (08:20)
[2016-12-24 08:34] LABS: HEMATOCRIT 35.9 % (37-47); MEAN CELL VOLUME 84.1 fL (80-100); MEAN CORPUSCULAR HEMOGLOBIN 27.6 pg (25-34); MEAN CORPUSCULAR HGB CONC 32.9 g/dl (32-36); MEAN PLATELET VOLUME 9.9 fL (7.4-10.4); PLATELET COUNT 253 K/uL (130-400); RED BLOOD COUNT 4.27 M/uL (4.2-5.4); WHITE BLOOD COUNT 5.65 K/uL (4.8-10.8)
[2016-12-24] MEDS: MECLIZINE HCL 25 MG TAB PO PRN ×2 (08:51→17:48)
[2016-12-24] MEDS: DICYCLOMINE HCL 20 MG TAB PO SCH ×2 (08:51→08:54)
[2016-12-24 09:00] LABS: BLOOD UREA NITROGEN 10 mg/dl (7-18); CALCIUM 8.5 mg/dl (8.5-10.1); CARBON DIOXIDE 24 mmol/L (21-32); CHLORIDE 112 mmol/L (98-107); CREATININE 0.57 mg/dl (0.60-1.20); GLUCOSE 91 mg/dl (70-99); MAGNESIUM 2.1 mg/dl (1.8-2.4); POTASSIUM 4.1 mmol/L (3.5-5.1); SODIUM 142 mmol/L (136-145)
[2016-12-24] MEDS ORDERED: MULTIVITAMIN TAB PO SCH (09:00)
[2016-12-24] MEDS ORDERED: RIVAROXABAN 10 MG TAB PO SCH (09:00)
[2016-12-24] MEDS ORDERED: NON-FORMULARY MEDICATION (Probiotic Product (Probiotic) 1 CAP) PO SCH (09:00)
--- NOTE | 2016-12-24 16:05 | Discharge Instructions ---
Discharge Instructions Date of Service Dec 24, 2016. Admission Reason for Admission: Chest Pain,Dizziness,[place] Discharge Discharge Diagnosis / Problem: DIZZY SPELL Discharge Goals Goal(s): Improve disease control, Diagnostic testing Activity Recommendations Activity Limitations: resume your previous activity Shower/Bathe: no limitations . Instructions / Follow-Up Instructions / Follow-Up HOSPITAL FOLLOW UP : 12/26/2016 1:00 PM Gerald Davila MD [facility], [place] Current Hospital Diet Patient's current hospital diet: Regular Diet Discharge Diet Recommended Diet: Regular Diet Pending Studies Studies pending at discharge: no Medical Emergencies . Who to Call and When: Medical Emergencies: If at any time you feel your situation is an emergency, please call 911 immediately. . Non-Emergent Contact Non-Emergency issues call your: Primary Care Provider . . "Provider Documentation" section prepared by Anjali Vasquez. . VTE Core Measure Inpt VTE Proph given/why not?: Remedios Dubose, SCD's
[2016-12-24] MEDS ORDERED: ANT25 PO (17:31)
--- NOTE | 2016-12-24 17:37 | Progress Note ---
Internal Med Progress Note Date of Service: Dec 24, 2016. Provider Documentation: SUBJECTIVE: still feels dizzy with position change had Donny maneuver earlier no improvement of symptom no headache no visual symptom wants to go home today if possible and have out pt followup OBJECTIVE: Vital Signs-as noted below Exam: General-no sign of distress Eyes-sclera non icteric , PERRLA/EOMI , nystagmus noted on lateral gaze ENT-NAD Neck-no JVD Lungs-CTA Heart-regular S1/S2 Abdomen-soft, non tender Extremities-no lower ext edema Neuro-AAO x3, no focal deficit Lab data as noted below. ASSESSMENT & PLAN: Dizziness, most likely secondary to inner ear disease / labyrinthitis/VS BPPV -no neurological deficit -BP stable , given IV fluids had Donny maneuver pt mentions of continued symptom meclizine helping some what wants to go home and have out pt follow up with ENT pt is asked to rest and hydrate , counselled for not to drive till evaluated by Family physician /Dizzy spell resolves HX OF Bilateral pulmonary embolism: diagnosed in July 2016. Hypercoagulable work up been negative has been on Xarelto HX OF IRON DEFICIENCY ANEMIA requires periodic IV iron infusion. Hb remains stable 4. Asthma no wheeze Continue with current inhaler. Full code DVT PROPHYLAXIS on Xarelto DISPOSITION stable to be discharged home today Vital Signs: Date Time Temp Pulse Resp B/P (MAP) Pulse Ox O2 Delivery O2 Flow Rate FiO2 12/24/16 16:00 98 Room Air 12/24/16 15:07 36.7 80 18 89/60 (70) 98 Room Air 112/71 (85) 108/75 (86) 12/24/16 12:00 98 Room Air 12/24/16 11:11 36.9 66 16 97/62 (74) 98 Room Air 115/80 (92) 101/61 (74) 12/24/16 08:00 98 Room Air 12/24/16 07:54 36.6 62 16 112/67 (82) 98 Room Air 12/24/16 05:29 36.8 79 20 101/70 (80) 97 Room Air 12/24/16 04:00 Room Air 12/24/16 00:00 Room Air 12/23/16 23:38 36.6 58 18 90/58 (69) 99 Room Air 114/73 (87) 128/90 (103) 12/23/16 22:09 36.9 80 18 116/78 98 Room Air 12/23/16 20:39 88 18 122/70 96 12/23/16 20:04 86 12/23/16 19:10 81 15 12/23/16 18:40 83 20 12/23/16 18:32 85 121/70 86 134/83 99 126/74 12/23/16 18:31 126/74 12/23/16 18:30 134/83 12/23/16 18:29 121/70 12/23/16 17:40 77 13 Lab Results: Results Past 24 Hours Test 12/24/16 02:02 12/24/16 07:49 12/24/16 14:00 Range/Units Creatine Kinase MB Ratio 0-3.0 White Blood Count 5.65 4.8-10.8 K/uL Red Blood Count 4.27 4.2-5.4 M/uL Hemoglobin 11.8 12.0-16.0 g/dL Hematocrit 35.9 37-47 % Mean Corpuscular Volume 84.1 80-100 fL Mean Corpuscular Hemoglobin 27.6 25-34 pg Mean Corpuscular Hemoglobin Concent 32.9 32-36 g/dl RDW Standard Deviation 57.6 36.4-46.3 fL RDW Coefficient of Variation 18.7 11.5-14.5 % Platelet Count 253 130-400 K/uL Mean Platelet Volume 9.9 7.4-10.4 fL Sodium Level 142 136-145 mmol/L Potassium Level 4.1 3.5-5.1 mmol/L Chloride Level 112 98-107 mmol/L Carbon Dioxide Level 24 21-32 mmol/L Anion Gap 6.0 3-11 mmol/L Blood Urea Nitrogen 10 7-18 mg/dl Creatinine 0.57 0.60-1.20 mg/dl Est Creatinine Clear Calc Drug Dose 151.2 ml/min Estimated GFR () > 150.0 Estimated GFR (Non- 130.7 BUN/Creatinine Ratio 17.0 10-20 Random Glucose 91 70-99 mg/dl Calcium Level 8.5 8.5-10.1 mg/dl Magnesium Level 2.1 1.8-2.4 mg/dl Total Creatine Kinase 36 37 26-192 U/L Creatine Kinase MB < 0.5 < 0.5 0.5-3.6 ng/ml Troponin I < 0.015 < 0.015 0-0.045 ng/ml Monoscreen NEG NEG
--- NOTE | 2016-12-24 17:38 | Discharge Summary ---
Discharge Summary Date of Service Dec 24, 2016. Discharge Summary Admission Date: Dec 23, 2016 at 20:07 Discharge Date: Dec 24, 2016 Discharge Disposition: Home Principal Diagnosis: DIZZY SPELL Procedures: CTA CHEST : IMPRESSION: 1. No pulmonary emboli identified. 2. No acute intrathoracic findings. CT HEAD : FINDINGS: No acute intracranial hemorrhage, midline shift or mass effect is present. Intravascular contrast is from recent contrast-enhanced chest CT. Ventricular system is normal. Basilar cisterns are patent. There are no extra-axial collections. Luque-white differentiation is maintained. There are no findings to suggest acute dural sinus thrombosis or acute territorial infarct. There is mild mucosal thickening of the ethmoid sinuses which is unchanged since exam of December 07, 2014. Mastoid air cells are clear. There are no calvarial abnormalities. IMPRESSION: No acute intracranial findings. Medication Reconciliation New Medications: Meclizine HCl (Meclizine HCl) 25 Mg Tab 1 TAB PO Q8 PRN for Dizziness or Vertigo, #60 TABS Continued Medications: Albuterol Hfa (Ventolin Hfa) 200 Puffs/25619 Mcg Aers 2 PUFFS INH Q4H PRN for Wheezing, #18 Dicyclomine Hcl (Dicyclomine Hcl) 20 Mg Tab 20 MG PO BID, #60 Fluticasone Propionate (Flovent Hfa) 120 Puffs/90657 Mcg Aero 2 PUFFS INH BID, #12 Multivitamin (Multivitamin) Tab 1 TAB PO DAILY, TAB Ondansetron Hcl (Zofran) 4 Mg Tab 4 MG PO Q6 PRN for Nausea, #20 TAB Probiotic Product (Probiotic) 1 Cap Cap 1 CAP PO DAILY Rivaroxaban (Xarelto) 20 Mg Tab 20 MG PO QAM, TAB Sumatriptan Succinate (Imitrex) 50 Mg Tab 50 MG PO PRN, TAB Discontinued Medications: Mesalamine (Pentasa) 500 Mg Caper 1000 MG PO QID, CAP Admission Information HPI (per Admitting provider): DATE OF ADMISSION: 12/23/2016 PRIMARY CARE PHYSICIAN: Dr. Davila CHIEF COMPLAINT: Acute dizziness with some head pressure and sweating since around 1:30 p.m. today. HISTORY OF PRESENT COMPLAINT: She is a 21-year-old female with significant past medical history of bilateral pulmonary embolism, secondary to use of OCP; Crohn disease, has been ruled out; benign paroxysmal positional vertigo, migraine variant; anxiety; and iron deficiency anemia, requiring IV iron infusion periodically; apparently has been complaining of dizziness since around 1:30 p.m. She felt sudden dizziness while she was sitting in a restaurant for the food to come, her dizziness involves all on a sudden with some pressure in the chest and followed by dizziness with sweating and also little bit of movement involving the left upper extremity. She looked pale during that time and the dizziness persisted since she was brought into the Emergency Room. She got meclizine without any relief. She was noted to have postural hypotension on the ER examination. She also complained to have some chest pain which have been off and on with this but no other significant symptoms. No fever, chills or rigors. No cough or phlegm. No abdominal pain. No nausea, no vomiting and no problem with her urine and/or bowel habits. She did not have any numbness or tingling involving any of the extremities and did not have any weakness in any side. PAST MEDICAL HISTORY: Significant for bilateral pulmonary embolism, secondary to use of OCP; hypercoagulable workup negative in July 2016; Crohn disease, that has been ruled out by EGD and colonoscopy; benign paroxysmal positional vertigo, migraine variant; anxiety; history of asthma; and also iron deficiency anemia, requiring periodic iron infusion. PAST SURGICAL HISTORY: Significant for delivery, minor dental surgery, surgery for laparoscopic diagnosis for ovarian cyst, tonsillectomy and adenoid surgery as a child. FAMILY HISTORY: Father has heart disorder, but no family history of clot disorder and/or inflammatory bowel disease. SOCIAL HISTORY: She is . She lives with her . She has 3 children. She quit smoking in 2011. She uses alcohol occasionally. REVIEW OF SYSTEMS: Other systemic review unremarkable except those mentioned in history of present complaint. ALLERGIES: IBUPROFEN. MEDICATIONS: As an outpatient, she has been on albuterol 2 puffs q. 4 hourly as needed, dicyclomine 20 mg daily, Flovent HFA 2 puffs twice daily, multivitamin 1 tablet daily, Zofran 4 mg p.o. q. 6 hourly p.r.n., Xarelto 20 mg daily, and Imitrex 50 mg as needed. PHYSICAL EXAMINATION: Physical Exam (per Admitting): GENERAL: On examination in the Emergency Room, she was still complaining of some dizziness on moving the neck, but she did not have any headache or no other symptoms associated with it. VITAL SIGNS: Temperature 36.7; pulse was 80; blood pressure 117/68 supine, 121/81 sitting, and 93/70 on standing; saturation 100% on room air. HEENT: Unremarkable. NECK: Supple. No JVD, no bruit. Neck movement produced dizziness. CHEST: Clear to auscultate bilaterally. HEART: S1, S2 regular. No murmur. ABDOMEN: Soft, benign, mildly tender in the epigastrium. No organomegaly. Bowel sounds present. EXTREMITIES: Negative for any edema. MUSCULOSKELETAL: Did not show any acute arthritis involving any joint. CENTRAL NERVOUS SYSTEM: Alert, awake, oriented x3. No focal sensory and/or motor deficit appreciated. Hospital Course Dizziness, most likely secondary to inner ear disease / labyrinthitis/VS BPPV -no neurological deficit -BP stable , given IV fluids had Donny maneuver pt mentions of continued symptom meclizine helping some what wants to go home and have out pt follow up with ENT CT HEAD ; NEGATIVE FOR CVA pt is asked to rest and hydrate , counselled for not to drive till evaluated by Family physician /Dizzy spell resolves HX OF Bilateral pulmonary embolism: diagnosed in July 2016. Hypercoagulable work up been negative has been on Xarelto CTA of chest -negative for PE HX OF IRON DEFICIENCY ANEMIA requires periodic IV iron infusion. Hb remains stable 4. Asthma no wheeze Continue with current inhaler. Full code DVT PROPHYLAXIS on Xarelto DISPOSITION stable to be discharged home today Discharge Instructions Discharge Instructions Date of Service Dec 24, 2016. Admission Reason for Admission: Chest Pain,Dizziness,[place] Discharge Discharge Diagnosis / Problem: DIZZY SPELL Discharge Goals Goal(s): Improve disease control, Diagnostic testing Activity Recommendations Activity Limitations: resume your previous activity Shower/Bathe: no limitations . Instructions / Follow-Up Instructions / Follow-Up HOSPITAL FOLLOW UP : 12/26/2016 1:00 PM Gerald Davila MD [facility], [place] Current Hospital Diet Patient's current hospital diet: Regular Diet Discharge Diet Recommended Diet: Regular Diet Pending Studies Studies pending at discharge: no Medical Emergencies . Who to Call and When: Medical Emergencies: If at any time you feel your situation is an emergency, please call 911 immediately. . Non-Emergent Contact Non-Emergency issues call your: Primary Care Provider . . "Provider Documentation" section prepared by Anjali Vasquez. . VTE Core Measure Inpt VTE Proph given/why not?: Remedios Dubose, [facility]
== END 2016-12-24 17:56 | disposition home or self-care (01) ==
LOC: C.EDB 15:12 → C.MED 20:07 → ENRESERV 20:27
PROVIDERS: ADMIT Internal Medicine; ATTEND Hospitalist
DX: R42 Dizziness and giddiness (principal); J45.909 Unspecified asthma, uncomplicated; F41.9 Anxiety disorder, unspecified; D50.9 Iron deficiency anemia, unspecified; Z86.711 Personal history of pulmonary embolism; Z79.891 Long term (current) use of opiate analgesic

== ENCOUNTER 2017-03-02 03:41 | Observation (INO) | payer OTHER ==
[~2017-03-02] VITALS: Ht 157.5 cm; Wt 80.3 kg
[2017-03-02] VITALS (8 sets, daily range): BP systolic 95–115; BP diastolic 63–73; PULSE 48–81; TEMP 36.7–36.9; O2SAT 96–100; Ht 157.5 cm; Wt 80.3 kg
[~2017-03-02 03:41] MED LIST changes: +ANT25 PO; -MISCCAP80 PO; -MULT-506 PO; -ONDA4TAB46 PO; -PNT500 PO
[2017-03-02 04:54] LABS: INR 1.1 (0.9-1.1); PROTHROMBIN TIME (PATIENT) 11.4 SECONDS (9.0-12.0)
[2017-03-02 04:59] LABS: ALT/SGPT 18 U/L (12-78); AST/SGOT 8 U/L (15-37); BLOOD UREA NITROGEN 12 mg/dl (7-18); BUN/CREATININE RATIO 16.2 (10-20); CARBON DIOXIDE 22 mmol/L (21-32); CHLORIDE 108 mmol/L (98-107); CREATININE 0.76 mg/dl (0.60-1.20); GLUCOSE 99 mg/dl (70-99); POTASSIUM 3.6 mmol/L (3.5-5.1); SODIUM 139 mmol/L (136-145)
[2017-03-02 05:03] LABS: BASO % 0.4 %; BASO ABS # 0.04 K/uL (0-0.2); COMPLETE YES; EOS % 3.5 %; HEMATOCRIT 41.8 % (37-47); IG% 0.3 %; LYMPH % 31.6 %; LYMPH ABS # 3.07 K/uL (1.2-3.4); MEAN CELL VOLUME 85.5 fL (80-100); MEAN CORPUSCULAR HEMOGLOBIN 30.5 pg (25-34); MEAN CORPUSCULAR HGB CONC 35.6 g/dl (32-36); MEAN PLATELET VOLUME 10.4 fL (7.4-10.4); MONO % 9.7 %; NEUT % 54.5 %; PLATELET COUNT 287 K/uL (130-400); RED BLOOD COUNT 4.89 M/uL (4.2-5.4); WHITE BLOOD COUNT 9.71 K/uL (4.8-10.8)
[2017-03-02] MEDS ORDERED: ACETAMINOPHEN 325 MG TAB PO STA (05:06)
[2017-03-02 05:10] LABS: ALKALINE PHOSPHATASE 79 U/L (45-117)
[2017-03-02 05:13] LABS: PREG INTERNAL NEGATIVE QC NEG CLEAR BACKGROUND; PREG INTERNAL POSITIVE QC POS CONTROL LINE
[2017-03-02] MEDS ORDERED: ONDANSETRON INJ 2 MG/ML 2 ML VIAL ONE (05:30)
[2017-03-02] MEDS ORDERED: POTASSIUM CHLORIDE 10 MEQ TABCR PO STA (06:09)
[2017-03-02] MEDS ORDERED: ACETAMINOPHEN 325 MG TAB PO PRN (06:45)
[2017-03-02] MEDS ORDERED: PROMETHAZINE HCL INJ 12.5 MG in SODIUM CHLORIDE 0.9% 50ML 50 ML IV PRN (06:45)
[2017-03-02] MEDS ORDERED: LORAZEPAM 2 MG/ML 1 ML VIAL IV PRN (06:45)
[2017-03-02] MEDS ORDERED: NITROGLYCERIN 0.4 MG SL PER TAB CHARGE SL PRN (06:45)
[2017-03-02] MEDS ORDERED: METOPROLOL TARTRATE 25 MG TAB PO STA (07:16)
[2017-03-02] MEDS ORDERED: IV FLUIDS COMPLETED PRN (07:30)
[2017-03-02] MEDS ORDERED: NSS + 20MEQ KCL 1000ML 1,000 ML IV ONE (08:00)
[2017-03-02] MEDS ORDERED: POTASSIUM CHLR 10 MEQ / WTR 10 MEQ in PREMIXED WATER 100 ML IV SCH (08:00)
--- NOTE | 2017-03-02 08:10 | HISTORY & PHYSICAL EXAMINATION ---
DATE OF ADMISSION: 03/02/2017 PRIMARY CARE DOCTOR: Dr. Kerr HISTORY OF PRESENT ILLNESS: History was obtained from the patient's records. Medical history is significant for pulmonary embolism on anticoagulation, past tobacco abuse. hx paroxysmal V-tach, asthma as per records. Patient was found to have pulmonary embolism in July 2016 attributed to oral contraceptive pills. Indefinitely on Coumadin for blood clot. Recent confinement was in December 2016 for dizziness. As per patient, she has noted intermittent palpitations since she was a young girl. In the last few weeks, the palpitation is distressing, with left-sided achy chest pain going to the left arm which would make her cough. Patient saw her PCP a few weeks ago who noted pulse abnormality. Outpatient Zio patch monitor recommended for 3 days. Runs of V-tach noted on report as per patient. Patient had an outpatient 2D echo done yesterday, with good EF, no significant valvular disease. Outpatient EPS consultation next week. Possible defibrillator placement as per patient. This morning the patient woke up with palpitations, achy left-sided chest pain, achy, going to the left arm. Patient was brought to the Emergency Room. Has had a run of sinus tachycardia in the ER. She denies decongestant intake at home or coffee intake or unusual stress. MEDICAL HISTORY: As above. Outpatient workup ongoing for dysphagia, anterior neck mass as well. 11/23/2016 thyroid ultrasound - thyroid normal in size, shape and echotexture. SURGERIES: She has had a section, dental surgery, gynecologic procedures, tonsillectomy and adenectomy. HOME MEDICATIONS: Include Xarelto, multivitamins and probiotic. ALLERGIES: TO IBUPROFEN. FAMILY HISTORY: Heart disease. PERSONAL AND SOCIAL HISTORY: Past tobacco abuse, no chronic intake of alcoholic beverages. Works in a daycare REVIEW OF SYSTEMS: As per HPI. All other ROS negative. PHYSICAL EXAMINATION: VITAL SIGNS: Blood pressure was noted to be 106/80, pulse rate 70, RR 18, temperature 36.8 and sats 98 on room air. GENERAL: Noted to be slightly uncomfortable, in no respiratory distress. SKIN: Sunburn noted, warm. HEENT: [place] palpebral conjunctivae. No ptosis. Dry mucosa. NECK: Supple. Nontender enlargement on anterior neck. CHEST: Clear to auscultation. No tenderness. HEART: Regular rate and rhythm. No murmur. ABDOMEN: Soft. Some tenderness on the LUQ (chronic as per patient). EXTREMITIES: No edema, no tenderness, no gross deformities NEUROLOGIC: No gross focality, coherent. LABORATORIES: Hemoglobin was noted to be 14.9, hematocrit 41 white cell count 9.7 and platelets 287. Sodium was noted to be 139, potassium 3.6, chloride 108, CO2 of 22, BUN 12, creatinine 0.7, glucose 0.76. INR 1.1. Troponin 0 EKG as NSR, no ischemia. Chest x-ray as per my interpretation; atelectasis. ASSESSMENT: 1. Chest pain, palpitations hx paroxysmal supra/ventricular tachycardia as outpatient cardiac cath lab radiology technologist device findings. 2. Bilateral pulmonary embolism, on Xarelto. 3. Dysphagia, outpatient workup contemplated. PLAN: Observation PCU. Low-dose beta nani to suppress VT. Supplement potassium. Cardiology consult RE chest pain/palpitations (Further eval/management as per Cardiology.) DVT prophylaxis, Xarelto. Full code. MTDD
--- NOTE | 2017-03-02 08:50 | DIAGNOSTIC IMAGING REPORT ---
SINGLE VIEW CHEST CLINICAL HISTORY: Atypical chest pain. FINDINGS: An AP, portable, upright chest radiograph is compared to chest x-ray and chest CT dated 12/23/2016. The examination is degraded by portable technique and patient rotation. The cardiomediastinal silhouette is unremarkable. The lungs and pleural spaces are clear. No pneumothorax is seen. The bony thorax is grossly intact. IMPRESSION: No active disease in the chest. Electronically signed by: Alcides Vick M.D. 03/02/2017 8:49 AM Dictated Date/Time: 03/02/2017 8:49 AM
[2017-03-02] MEDS ORDERED: NURSING VERBAL MED ORDER ONE (09:00)
[2017-03-02] MEDS: MULTIVITAMIN TAB PO SCH (09:00)
[2017-03-02] MEDS: LACTOBACILLUS ACIDOPHILUS (FLORANEX) TAB PO SCH (09:00)
[2017-03-02] MEDS ORDERED: RIVAROXABAN 10 MG TAB PO SCH ×2 (09:00→16:15)
[2017-03-02] MEDS ORDERED: POTASSIUM CHLORIDE 20 MEQ/15 ML UDC PO ONE (09:15)
--- NOTE | 2017-03-02 12:04 | Cardiology Consultation ---
Cardiology Consultation Date of Consultation: Mar 02, 2017 History of Present Illness C replace her recent right Patient is a 21 year old female seen in cardiology consultation per the request of Dr Poole for the evaluation of chest pain and palpitations. The patient states that last evening at 2:30 AM she woke up with her heart racing. It persisted and was associated with chest pain, cough and vomiting. She called her father who is an emergency manager medical device who apparently came to her home and took her pulse rate and obtained a reading of over 190 bpm. The patient subsequently presented to the emergency department. Electric cardiogram on arrival revealed sinus rhythm at 86 bpm with sinus arrhythmia, no significant ST changes. Her initial vital signs taken at the hospital revealed no evidence of tachycardia. The patient describes that she has had palpitations for years. Over the last one year they become more significant. 2 years ago she recalls that she was 8 months and felt dizzy and passed out. She was sent to the hospital. She was found to have heart rates as high as the 160s per her memory, but was felt that this was tachycardia related to her . She ultimately underwent an uncomplicated section. Per her description she has had at least 2 or 3 episodes of arlet passing out in her life. Because the progressive palpitations, she had seen her primary care provider, Dr. Usha Perry , and a Zio hydrotel operator had been placed. This was was reviewed by Dr. Lou of our practice approximately 2 days ago. The actual monitor is not available for review personally at present, but I discussed it with Dr. Lou by telephone. The monitor revealed multiple brief episodes of supraventricular tachycardia. There is a single 10 second episode of extreme tachycardia with ventricular rates in the 250 beat per minute range and a right bundle branch block morphology suggestive of ventricular tachycardia or supraventricular tachycardia with aberrant conduction. Because of the results of the Zio hydrotel operator she underwent a transthoracic echocardiogram performed yesterday in our office with normal left ventricular wall motion and normal myocardial thickness. The ejection fraction was normal, and no significant valvular heart disease was noted. The patient is tentatively scheduled to see electrophysiology in outpatient consultation on this Saturday, but because of her event last night she presented to the hospital in the meantime. Per review of her repeat EKG this morning continued sinus rhythm is noted without significant arrhythmia. Her axis and intervals are normal. Telemetry reveals sinus rhythm without ectopy. The patient describes having frequent palpitations. She described having palpitations when I was examining her, and her heart was regular without tachycardia or ectopy during my exam. History Past Medical History: 1. History of Crohn's disease 2. History of pulmonary embolism diagnosed in July 2016, she was on an oral contraceptive at the time of diagnosis, and hypercoagulable workup was negative 3. Ovarian cysts 4. Mild intermittent asthma 5. Recent difficulty swallowing for the last 6 months, ultrasound of the head and neck November 2016 revealed no thyroid abnormality, CT of the neck with contrast performed 11/15/16 revealed nonspecific scattered, nonenlarged lymph nodes the deep cervical soft tissues the neck, patient had a negative EGD in August 2016, and is tentatively scheduled for a repeat EGD within the next month because of her swallowing difficulty Past Surgical History: 1. Removal of tonsils and adenoidectomy at age less than 10 2. Laparoscopy for ovarian cyst lined 3. section 2 4. EGD 5. Colonoscopy Social History: She is and lives with her and 2 children. 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 She smoked briefly on Saturday night several years ago, she is not a long-time smoker. Family History: The patient is adopted. She does have contact information for biological parents who are no longer together. She had spoken to her mother who apparently has no history of cardiac disease. Her biological father reportedly has a pacemaker AICD, she is yet to discuss this with him, the details are unknown. Review Of Systems General: The patient denies weight change, night sweats, fever, chills. Head: The patient denies headache and prior head trauma. Cardiovascular: The patient denies chest pain or chest discomfort, dyspnea on exertion, palpitations, PND, orthopnea, edema, spontaneous shortness of breath, syncope and near syncope. Pulmonary: The patient denies cough, wheeze, pleurisy, hemoptysis, sputum, and excessive snoring. Gastrointestinal: The patient denies nausea, vomiting, diarrhea, constipation, bloating, hematemesis, hematochezia, and abdominal pain. Skin: The patient denies diaphoresis and rash. Musculoskeletal: The patient denies joint pain, joint swelling, myalgia, back pain, neck pain and prior injuries. Neurological: The patient denies prior stroke and seizures Allergies Coded Allergies: Ibuprofen (Verified Allergy, Severe, ANAPHYLAXIS, 03/02/17) Medications Reported Home Medications Medications Dose Route/Sig Max Daily Dose Days Date Category Xarelto (Rivaroxaban) 20 Mg Tab 20 Mg PO QAM 11/19/16 Reported Multivitamin (Multivitamins) Tab 1 Tab PO DAILY 07/11/16 Reported Probiotic (Probiotic Product) 1 Cap Cap 1 Cap PO DAILY 07/11/16 Reported Physical Exam Vital Signs (Last 8hrs): Last 8 Hrs Date Time Temp Pulse Resp B/P (MAP) Pulse Ox O2 Delivery O2 Flow Rate FiO2 03/02/17 06:36 85 20 110/76 99 03/02/17 06:06 79 16 97 03/02/17 05:06 74 14 98 03/02/17 05:01 82 18 100 03/02/17 04:32 99 Room Air 03/02/17 04:28 106/80 03/02/17 04:21 77 16 03/02/17 04:07 98 Room Air 03/02/17 04:05 85 03/02/17 03:46 36.7 92 18 108/80 96 Room Air General Appearance: Alert and Oriented x3. NAD. Head: Normocephalic Atraumatic. Eyes: PERRLA, EOMI, conjunctiva and sclera clear Neck: Supple. No carotid bruits noted. Fullness in the anterior neck is noted Respiratory: Breath sounds clear to auscultation bilaterally. No w/r/r. Cardiovascular: Reg rate and rhythm. S1 and S2 noted. No murmurs, rubs, gallops. PMI non displace. Abdomen: Normal bowel sounds, soft nontender. no abdominal bruits. Extremities: No edema, no clubbing or cyanosis. distal pulses 2/4 bilaterally. Neuro: No focal deficits. Psychiatric: Normal affect. Data Last Resulted 03/02/17 04:00 Red Blood Count 4.89, Mean Corpuscular Volume 85.5, Mean Corpuscular Hemoglobin 30.5, Mean Corpuscular Hemoglobin Concent 35.6, Mean Platelet Volume 10.4, Neutrophils (%) (Auto) 54.5, Lymphocytes (%) (Auto) 31.6, Monocytes (%) (Auto) 9.7, Eosinophils (%) (Auto) 3.5, Basophils (%) (Auto) 0.4, Neutrophils # (Auto) 5.29, Lymphocytes # (Auto) 3.07, Monocytes # (Auto) 0.94, Eosinophils # (Auto) 0.34, Basophils # (Auto) 0.04 Last Resulted 03/02/17 04:00 Past 24 Hours Test 03/02/17 04:00 Range/Units Prothromb Time International Ratio 1.1 0.9-1.1 Prothrombin Time 11.4 9.0-12.0 SECONDS Troponin I < 0.015 0-0.045 ng/ml EKG is lined above, telemetry negative. Summary of TTE performed 03/01/17 at [facility]: The examination is normal. The left ventricular cavity size is normal. The LV wall thickness is normal. The left ventricular wall motion is normal. The qualitative LV ejection fraction is 5559% (normal). There is no asymmetric left ventricular hypertrophy. No significant valvular disease is present. Assessment & Plan Impression: 21-year-old female 1. Long-standing history of palpitations, past syncope, worsening palpitations over the last few months, she has associated chest pains when she has the palpitations, and recent hydrotel operator as an outpatient revealed a 10 second run of wide-complex tachycardia with right bundle branch block morphology that was very rapid, 250 bpm, consistent with paroxysmal ventricular tachycardia versus a very fast supraventricular tachycardia with aberrant conduction 2. Pulmonary embolism, that occurred in the setting of oral contraceptive use, 07/27, no residual pulmonary embolism on repeat CT scan in November, 3. No evidence of structural heart disease on transthoracic echocardiogram 4. Apparent family history of a heart rhythm problem in her father who she believes has a pacemaker defibrillator was placed at a young age, when he was 28 years old. Recommendations: The patient is very nervous about her condition. She has been on several occasions whether or not she would need to have an implantable defibrillator. I told her that we would require additional information at this point. I first recommendation is for us to start her on beta nani therapy. Low-dose metoprolol was started last evening, and I plan to increase the dose. Given her level of anxiety, recommend that we keep her in the hospital for the time being. So far she has had no recurrent fast heart rate events on the sessions clerk. Her echocardiogram reveals no evidence of cardiomyopathy with normal biventricular systolic function, no 2-D evidence to suggest hypertrophic cardiomyopathy. Her EKG is normal without abnormal T waves to suggest obvious Brugada syndrome and her QT interval is stable. I counseled her that if she is able to contact her biological father to learn more about his past medical history that would be helpful. Summary remain on telemetry, initiate and titrate metoprolol. EP evaluation within a few days as inpatient versus outpatient as I anticipate invasive electrophysiology study will be indicated. Alexander Leigh, DO
[2017-03-02] MEDS ORDERED: METOPROLOL TARTRATE 25 MG TAB PO ONE (12:30)
[2017-03-02 12:46] LABS: BENZODIAZEPINE, URINE NEG (NEG); COCAINE,URINE NEG (NEG); PHENCYCLIDINE, URINE NEG (NEG)
[2017-03-02] MEDS ORDERED: LPR25 PO (16:51)
--- NOTE | 2017-03-02 16:55 | Discharge Instructions ---
Discharge Instructions Date of Service Mar 02, 2017. Admission Reason for Admission: Chest Pain Discharge Discharge Diagnosis / Problem: PLAPITATION /SUPRAVENTRICULAR TACHYCARDIA Discharge Goals Goal(s): Decrease discomfort, Diagnostic testing, Therapeutic intervention Activity Recommendations Activity Limitations: resume your previous activity . Instructions / Follow-Up Instructions / Follow-Up CARDIOLOGY FOLLOW UP : 03/05/2017 2:40 PM Kecia Naidu DO Cardiology, [facility] FOLLOW UP : 03/06/2017 1:00 PM Gerald Davila MD [facility], [place] YOU ARE STARTED ON A NEW MEDICATION : TOPROL XL 25 MG DAILY - TO PREVENT FURTHER EPISODES OF PALPITATION, ABNORMALITY IN HEART RHYTHM TAKE MEDICATIONS INSTRUCTED , DO NOT INTERRUPT OF STOP TAKING MEDICATION UNTIL ADVISED BY YOUR CARDIOLOGY Current Hospital Diet Patient's current hospital diet: AHA Diet (Heart Healthy) Discharge Diet Recommended Diet: AHA Diet (Heart Healthy) Pending Studies Studies pending at discharge: no Medical Emergencies . Who to Call and When: Medical Emergencies: If at any time you feel your situation is an emergency, please call 911 immediately. . Non-Emergent Contact Non-Emergency issues call your: Primary Care Provider . . "Provider Documentation" section prepared by Anjali Vasquez. . VTE Core Measure Inpt VTE Proph given/why not?: Other Anticoagulation (XARALTO )
--- NOTE | 2017-03-02 19:13 | Progress Note ---
Progress Note Date of Service Mar 02, 2017. Progress Note pt admitted earlier today complains of crushing substernal chest pain feel dizzy and lightheaded , vision blurred for 15 mins tele shows no evidence of arrhythmia 12 lead EKG NSR pt started on PO Lopressor 25 mg BID Cardiology eval appreciated , possible SVT causing her symptoms cont on beta nani plan to discharge her tomorrow after overnight tele monitoring out pt follow up scheduled with EP Cardiology Dr Kecia Naidu on Saturday03/05/17
[2017-03-02] MEDS ORDERED: METOPROLOL TARTRATE 25 MG TAB PO SCH ×2 (21:00)
[2017-03-02] MEDS ORDERED: DiphenhydrAMINE 2%/ZINC 0.1% CREAM 28GM TUBE EXT PRN (21:30)
[2017-03-02] MEDS: TRAMADOL HCL 50 MG TAB PO PRN (21:48)
[2017-03-03 03:50] VITALS: BP 96/56; PULSE 58; TEMP 36.7; O2SAT 98
[2017-03-03] MEDS: TRAMADOL HCL 50 MG TAB PO PRN (04:41)
[2017-03-03 06:13] LABS: BASO % 0.5 %; BASO ABS # 0.04 K/uL (0-0.2); COMPLETE YES; EOS % 4.8 %; HEMATOCRIT 41.7 % (37-47); IG% 0.1 %; LYMPH % 36.9 %; LYMPH ABS # 2.79 K/uL (1.2-3.4); MEAN CELL VOLUME 86.5 fL (80-100); MEAN CORPUSCULAR HEMOGLOBIN 29.3 pg (25-34); MEAN CORPUSCULAR HGB CONC 33.8 g/dl (32-36); MEAN PLATELET VOLUME 9.9 fL (7.4-10.4); MONO % 11.1 %; NEUT % 46.6 %; PLATELET COUNT 257 K/uL (130-400); RED BLOOD COUNT 4.82 M/uL (4.2-5.4); WHITE BLOOD COUNT 7.56 K/uL (4.8-10.8)
[2017-03-03 07:14] VITALS: BP 113/75; PULSE 64; TEMP 36.9; O2SAT 94
[2017-03-03 08:00] VITALS: O2SAT 96
[2017-03-03] MEDS ORDERED: METOPROLOL TARTRATE 25 MG TAB PO SCH (09:00)
[2017-03-03] MEDS ORDERED: METOPROLOL SUCC 25MG EXT REL TAB PO ONE (09:30)
[2017-03-03] MEDS: MULTIVITAMIN TAB PO SCH (09:43)
[2017-03-03] MEDS: LACTOBACILLUS ACIDOPHILUS (FLORANEX) TAB PO SCH (09:43)
--- NOTE | 2017-03-03 09:52 | Cardiology Follow-Up ---
Subjective General Date of Service: Mar 03, 2017. Chief Complaint: follow up chest pain, palpitations Pt evaluation today including: conversation w/ patient, physical exam History of Present Illness The patient is a 21 year old female seen in follow up. Patient still with frequent subjective palpitations, however telemetry reveals SR and sinus arrhythmia. Only episode of tachycardia was on 03/02/17 at 6:12 with narrrow QRS complex tachycardia at 146 bpm, brief, consistent with Sinus tachycardia or SVT. No wide complex rhythm while admitted. No significant ectopy. EKG this AM SB in 50's with diffuse J point elevation, normal variant for age. Telemetry at present SR at 76 bpm. Pt did not receive PM metoprolol tartrate dose due to SBP in the 90s. Allergies Coded Allergies: Ibuprofen (Verified Allergy, Severe, ANAPHYLAXIS, 03/02/17) Social History Smoking Status: Never Smoker Hx Tobacco Use In Past Year?: No Hx Alcohol Use - Type And Amou: No Hx Substance Use - Type And Am: No Problem List Medical Problems: (1) Atypical chest pain Status: Acute (2) Bilateral pulmonary embolism Status: Acute (3) Chest wall pain Status: Acute (4) Ileitis, terminal Status: Acute (5) Left facial numbness Status: Acute (6) Light headed Status: Acute (7) Vertigo Status: Acute (8) Vomiting Status: Acute Physical Exam Vital Signs Last Vital Signs Documentation Date Time Temp Pulse Resp B/P (MAP) Pulse Ox O2 Delivery O2 Flow Rate FiO2 03/03/17 07:14 36.9 64 18 113/75 (88) 94 Room Air Physical Exam Constitutional: General Apperance: heathly-appearing Level of Distress: NAD Neck: supple, trachea midline Lungs: Auscultation: no wheezing, no rales/crackles, no rhonchi Cardiovascular: Heart Auscultation: RRR, no murmurs, no rubs, no gallops Abdomen: Inspection & Palpation: soft, no tenderness, guarding & rebound, no CVA tenderness Extremities: no cyanosis, no edema, no varicosities Neurologic: Gait & Station: pertinent finding (No focal deficits ) Assessment and Plan Assessment and Plan Last Resulted 03/03/17 05:42 Red Blood Count 4.82, Mean Corpuscular Volume 86.5, Mean Corpuscular Hemoglobin 29.3, Mean Corpuscular Hemoglobin Concent 33.8, Mean Platelet Volume 9.9, Neutrophils (%) (Auto) 46.6, Lymphocytes (%) (Auto) 36.9, Monocytes (%) (Auto) 11.1, Eosinophils (%) (Auto) 4.8, Basophils (%) (Auto) 0.5, Neutrophils # (Auto ) 3.52, Lymphocytes # (Auto) 2.79, Monocytes # (Auto) 0.84, Eosinophils # (Auto ) 0.36, Basophils # (Auto) 0.04 Last Resulted 03/02/17 04:00 Past 24 Hours Test 03/02/17 12:15 Range/Units Troponin I < 0.015 0-0.045 ng/ml Impression: 21-year-old female 1. 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 Pulmonary embolism, that occurred in the setting of oral contraceptive use, 07/2016, no residual pulmonary embolism on repeat CT scan in November, 3. No evidence of structural heart disease on transthoracic echocardiogram 4. Apparent family history of a heart rhythm problem in her father who she believes has a pacemaker defibrillator was placed at a young age, when he was 28 years old. Discussion / Recommendations: The patient's subjective symptoms of palpitations are out of proportion to that which is observed on the monitor. Perhaps there is an element of increased cardiac awareness superimposed anxiety. She has had tumor 3 past syncopal episodes that she described to me, most recent one was 2 years ago when she was 8 months she's had no recent syncopal episodes. She has had multiple hospitalizations and emergency room visit for chest discomfort. Her chest discomfort is not clinically consistent with pericarditis. I reviewed the images from her CT rule out pulmonary embolism studies that were performed previously at [facility]. The study performed allows adequate visualization of the origin of the left main coronary artery , LAD, and circumflex, with no apparent coronary anomaly. The right coronary artery origin however is not well visualized on the study. I reviewed the CT images from 11/19/16 at which time the origin of the left coronary system is not well visualized, however the RCA origin is visualized coming off the right coronary cusp. Although these CT studies are not optimally timed for visualization of the coronaries, I think that they are adequate for excluding coronary artery anomaly. At this time, recommend transitioning her to metoprolol succinate 25 mg daily. Will then have her walk in the hallway, as long as she feels well, but discharged home today. I've changed to hold parameters for her metoprolol to a hold for a heart rate less than 55 bpm and systolic blood pressure less than 90 mm Hg. The patient is young, and is not unexpected for her resting heart rate to be in the 50s at rest, I do not think she will develop symptomatic bradycardia or hypotension on low-dose metoprolol and I think it is necessary for treatment of her palpitations. Recommend we continue with the plan for the outpatient electrophysiology consultation at [facility] with Dr. Naidu as planned for 2 days from now on Saturday. Further evaluation will be necessary, to determine if patient doesn't fact have ventricular arrhythmia, or perhaps paroxysmal supraventricular tachycardia with aberrant conduction. Alexander Leigh,DO Laboratory Results Last 24 Hours Test 03/02/17 12:05 03/02/17 12:15 03/03/17 05:42 Urine Opiates Screen NEG Urine Methadone, Qualitative NEG Urine Barbiturates NEG Urine Phencyclidine (PCP) Level NEG Ur Amphetamine/Methamphetamine NEG MDMA (Ecstasy) Screen NEG Urine Benzodiazepines Screen NEG Urine Cocaine Metabolite NEG Urine Marijuana (THC) NEG Troponin I < 0.015 ng/ml White Blood Count 7.56 K/uL Red Blood Count 4.82 M/uL Hemoglobin 14.1 g/dL Hematocrit 41.7 % Mean Corpuscular Volume 86.5 fL Mean Corpuscular Hemoglobin 29.3 pg Mean Corpuscular Hemoglobin Concent 33.8 g/dl Platelet Count 257 K/uL Mean Platelet Volume 9.9 fL Neutrophils (%) (Auto) 46.6 % Lymphocytes (%) (Auto) 36.9 % Monocytes (%) (Auto) 11.1 % Eosinophils (%) (Auto) 4.8 % Basophils (%) (Auto) 0.5 % Neutrophils # (Auto) 3.52 K/uL Lymphocytes # (Auto) 2.79 K/uL Monocytes # (Auto) 0.84 K/uL Eosinophils # (Auto) 0.36 K/uL Basophils # (Auto) 0.04 K/uL RDW Standard Deviation 48.7 fL RDW Coefficient of Variation 15.3 % Immature Granulocyte % (Auto) 0.1 % Immature Granulocyte # (Auto) 0.01 K/uL
[2017-03-03] MEDS ORDERED: TPRSR25 PO (10:42)
--- NOTE | 2017-03-03 10:54 | Progress Note ---
Internal Med Progress Note Date of Service: Mar 03, 2017. Provider Documentation: SUBJECTIVE: complains of intermittent chest pain no arrhythmia noted in tele EKG NSR ; pt remains anxious about her symptoms evaluated by Cardiology beta nani dose adjusted started on Toprol XL daily given ist dose in AM -stable to be discharged home per Cardiology pt wants to be discharged home after AM med OBJECTIVE: Vital Signs-as noted below Exam: General-no sign of distress Eyes-sclera non icteric ENT-NAD Neck-no JVD Lungs-CTA , no rales or wheeze Heart-regular S1/S2 Abdomen-soft, non tender Extremities- no lower ext edema Neuro-AAO x3, no focal deficit Lab data as noted below. ASSESSMENT & PLAN: CHEST PAIN /PALPITATION: mentions of intermittent chest pain /palpitation / out pt Zio Patch shows possible Ventricular arrhythmia ECHO showed normal EF ; no wall motion abnormality , no valvular heart disease appreciate cardiology eval started on Metoprolol 25 mg BID ; evening dose was not given for SBP ~90 no arrhythmia noted in tele beta nani changed to Toprol XL 25 mg daily -AM dose given stable to be discharged home today out pt EP cardiology follow up scheduled in 2 days HX OF PE : cont on Xarelto DVT PROPHYLAXIS on Xarelto DISPOSITION discharge pt home today Vital Signs: Date Time Temp Pulse Resp B/P (MAP) Pulse Ox O2 Delivery O2 Flow Rate FiO2 03/03/17 11:07 37.0 73 16 105/69 (81) 99 03/03/17 10:56 36.9 64 18 96 Room Air 03/03/17 08:00 96 Room Air 03/03/17 07:14 36.9 64 18 113/75 (88) 94 Room Air 03/03/17 04:00 Room Air 03/03/17 03:50 36.7 58 20 96/56 (69) 98 Room Air 03/02/17 23:59 Room Air 03/02/17 23:24 36.7 78 20 115/73 (87) 98 Room Air 03/02/17 20:56 70 20 95/63 (74) 98 Room Air 03/02/17 20:00 Room Air 03/02/17 19:13 36.9 73 16 101/65 (77) 100 Room Air 03/02/17 16:00 96 Room Air 03/02/17 15:29 36.8 69 18 103/68 (80) 98 Room Air Lab Results: Results Past 24 Hours Test 03/03/17 05:42 Range/Units White Blood Count 7.56 4.8-10.8 K/uL Red Blood Count 4.82 4.2-5.4 M/uL Hemoglobin 14.1 12.0-16.0 g/dL Hematocrit 41.7 37-47 % Mean Corpuscular Volume 86.5 80-100 fL Mean Corpuscular Hemoglobin 29.3 25-34 pg Mean Corpuscular Hemoglobin Concent 33.8 32-36 g/dl Platelet Count 257 130-400 K/uL Mean Platelet Volume 9.9 7.4-10.4 fL Neutrophils (%) (Auto) 46.6 % Lymphocytes (%) (Auto) 36.9 % Monocytes (%) (Auto) 11.1 % Eosinophils (%) (Auto) 4.8 % Basophils (%) (Auto) 0.5 % Neutrophils # (Auto) 3.52 1.4-6.5 K/uL Lymphocytes # (Auto) 2.79 1.2-3.4 K/uL Monocytes # (Auto) 0.84 0.11-0.59 K/uL Eosinophils # (Auto) 0.36 0-0.5 K/uL Basophils # (Auto) 0.04 0-0.2 K/uL RDW Standard Deviation 48.7 36.4-46.3 fL RDW Coefficient of Variation 15.3 11.5-14.5 % Immature Granulocyte % (Auto) 0.1 % Immature Granulocyte # (Auto) 0.01 0.00-0.02 K/uL
--- NOTE | 2017-03-03 10:55 | Discharge Summary ---
Discharge Summary Date of Service Mar 03, 2017. Discharge Summary Admission Date: Mar 02, 2017 at 06:51 Discharge Date: Mar 03, 2017 Discharge Disposition: Home Principal Diagnosis: PALPITATION /SUPRAVENTRICULAR TACHYCARDIA Consultations: [facility] Medication Reconciliation New Medications: Metoprolol Succinate (Metoprolol Succinate ER) 25 Mg Tabcr 25 MG PO QAM for 30 Days, #30 TABS 3 Refills Continued Medications: Multivitamin (Multivitamin) Tab 1 TAB PO DAILY, TAB Probiotic Product (Probiotic) 1 Cap Cap 1 CAP PO DAILY Rivaroxaban (Xarelto) 20 Mg Tab 20 MG PO QAM, TAB Referrals At Discharge Follow up Referrals: [facility] Referral - 03/05/17 with Kecia Naidu D.O. Admission Information HPI (per Admitting provider): DATE OF ADMISSION: 03/02/2017 PRIMARY CARE DOCTOR: Dr. Kerr HISTORY OF PRESENT ILLNESS: History was obtained from the patient's records. Medical history is significant for pulmonary embolism on anticoagulation, past tobacco abuse. hx paroxysmal V-tach, asthma as per records. Patient was found to have pulmonary embolism in July 2016 attributed to oral contraceptive pills. Indefinitely on Coumadin for blood clot. Recent confinement was in December 2016 for dizziness. As per patient, she has noted intermittent palpitations since she was a young girl. In the last few weeks, the palpitation is distressing, with left-sided achy chest pain going to the left arm which would make her cough. Patient saw her PCP a few weeks ago who noted pulse abnormality. Outpatient Zio patch monitor recommended for 3 days. Runs of V-tach noted on report as per patient. Patient had an outpatient 2D echo done yesterday, with good EF, no significant valvular disease. Outpatient EPS consultation next week. Possible defibrillator placement as per patient. This morning the patient woke up with palpitations, achy left-sided chest pain, achy, going to the left arm. Patient was brought to the Emergency Room. Has had a run of sinus tachycardia in the ER. She denies decongestant intake at home or coffee intake or unusual stress. MEDICAL HISTORY: As above. Outpatient workup ongoing for dysphagia, anterior neck mass as well. 11/23/2016 thyroid ultrasound - thyroid normal in size, shape and echotexture. SURGERIES: She has had a section, dental surgery, gynecologic procedures, tonsillectomy and adenectomy. HOME MEDICATIONS: Include Xarelto, multivitamins and probiotic. ALLERGIES: TO IBUPROFEN. FAMILY HISTORY: Heart disease. PERSONAL AND SOCIAL HISTORY: Past tobacco abuse, no chronic intake of alcoholic beverages. Works in a daycare Physical Exam (per Admitting): REVIEW OF SYSTEMS: As per HPI. All other ROS negative. PHYSICAL EXAMINATION: VITAL SIGNS: Blood pressure was noted to be 106/80, pulse rate 70, RR 18, temperature 36.8 and sats 98 on room air. GENERAL: Noted to be slightly uncomfortable, in no respiratory distress. SKIN: Sunburn noted, warm. HEENT: [place] palpebral conjunctivae. No ptosis. Dry mucosa. NECK: Supple. Nontender enlargement on anterior neck. CHEST: Clear to auscultation. No tenderness. HEART: Regular rate and rhythm. No murmur. ABDOMEN: Soft. Some tenderness on the LUQ (chronic as per patient). EXTREMITIES: No edema, no tenderness, no gross deformities NEUROLOGIC: No gross focality, coherent. Hospital Course CHEST PAIN /PALPITATION: mentions of intermittent chest pain /palpitation / out pt Zio Patch shows possible Ventricular arrhythmia ECHO showed normal EF ; no wall motion abnormality , no valvular heart disease appreciate cardiology eval possible SVT causing symptoms ; beta nani added scheduled to have EP cardiology follow up in 2 days started on Metoprolol 25 mg BID ; evening dose was not given for SBP ~90 no arrhythmia noted in tele beta nani changed to Toprol XL 25 mg daily -AM dose given stable to be discharged home today HX OF PE : cont on Xarelto DVT PROPHYLAXIS on Xarelto DISPOSITION discharge pt home today Discharge Instructions Discharge Instructions Date of Service Mar 02, 2017. Admission Reason for Admission: Chest Pain Discharge Discharge Diagnosis / Problem: PALPITATION /SUPRAVENTRICULAR TACHYCARDIA Discharge Goals Goal(s): Decrease discomfort, Diagnostic testing, Therapeutic intervention Activity Recommendations Activity Limitations: resume your previous activity . Instructions / Follow-Up Instructions / Follow-Up CARDIOLOGY FOLLOW UP : 03/05/2017 2:40 PM Kecia Naidu DO Cardiology, [facility] FOLLOW UP : 03/06/2017 1:00 PM Gerald Davila MD [facility], [place] YOU ARE STARTED ON A NEW MEDICATION : TOPROL XL 25 MG DAILY - TO PREVENT FURTHER EPISODES OF PALPITATION, ABNORMALITY IN HEART RHYTHM TAKE MEDICATIONS INSTRUCTED , DO NOT INTERRUPT OF STOP TAKING MEDICATION UNTIL ADVISED BY YOUR CARDIOLOGY Current Hospital Diet Patient's current hospital diet: AHA Diet (Heart Healthy) Discharge Diet Recommended Diet: AHA Diet (Heart Healthy) Pending Studies Studies pending at discharge: no Medical Emergencies . Who to Call and When: Medical Emergencies: If at any time you feel your situation is an emergency, please call 911 immediately. . Non-Emergent Contact Non-Emergency issues call your: Primary Care Provider . . "Provider Documentation" section prepared by Anjali Vasquez. . VTE Core Measure Inpt VTE Proph given/why not?: Other Anticoagulation (XARALTO ) Additional Copies To Kecia Naidu D.O. Mazza,Gerald Munoz M.D.
[2017-03-03 10:56] VITALS: BP 113/75; PULSE 64; TEMP 36.9; O2SAT 96
[2017-03-03 11:07] VITALS: BP 105/69; PULSE 73; TEMP 37; O2SAT 99
[2017-03-04] MEDS ORDERED: METOPROLOL SUCC 25MG EXT REL TAB PO SCH (09:00)
[2017-03-21] MEDS ORDERED: MULT-506 PO (14:00)
[2017-03-21] MEDS ORDERED: MISCCAP80 PO (14:00)
== END 2017-03-03 11:45 | disposition hospice, home (50) ==
LOC: C.EDB 03:42 → ENRESERV 06:28 → C.2T 06:51
PROVIDERS: ADMIT Hospitalist; ATTEND Hospitalist
DX: I47.1 Supraventricular tachycardia (principal); J45.909 Unspecified asthma, uncomplicated; Z86.711 Personal history of pulmonary embolism; Z87.891 Personal history of nicotine dependence; Z79.01 Long term (current) use of anticoagulants; Z79.899 Other long term (current) drug therapy

== ENCOUNTER 2017-03-21 16:32 | Emergency (ER) | payer OTHER ==
[~2017-03-21] VITALS: Ht 157.5 cm; Wt 83.2 kg
[~2017-03-21 16:32] MED LIST changes: -ANT25 PO; -DICY20TA10 PO; -FLVHFA220 INH; +MISCCAP80 PO; +MULT-506 PO; -SUMA50TA15 PO; +TPRSR25 PO; -VNTHFA/IN INH
[2017-03-21 16:49] VITALS: TEMP 36.8; Ht 157.5 cm; Wt 83.2 kg
[2017-03-21] MEDS ORDERED: TPRSR/25 PO (17:10)
[2017-03-21 17:14] VITALS: O2SAT 100
[2017-03-21 17:14] LABS: BASO % 0.7 %; BASO ABS # 0.05 K/uL (0-0.2); COMPLETE YES; EOS % 4.2 %; HEMATOCRIT 41.1 % (37-47); IG% 0.3 %; LYMPH ABS # 2.67 K/uL (1.2-3.4); MEAN CELL VOLUME 86.7 fL (80-100); MEAN CORPUSCULAR HEMOGLOBIN 30.2 pg (25-34); MEAN CORPUSCULAR HGB CONC 34.8 g/dl (32-36); MEAN PLATELET VOLUME 9.7 fL (7.4-10.4); NEUT % 48.8 %; PLATELET COUNT 311 K/uL (130-400); RED BLOOD COUNT 4.74 M/uL (4.2-5.4); WHITE BLOOD COUNT 7.22 K/uL (4.8-10.8)
[2017-03-21 17:23] LABS: PARTIAL THROMBOPLASTIN RATIO 1.1; PROTHROMBIN TIME (PATIENT) 10.8 SECONDS (9.0-12.0)
--- NOTE | 2017-03-21 17:29 | EMERGENCY ROOM VISIT NOTE ---
History First contact with patient: 16:45 Chief Complaint: DIZZY Stated Complaint: HYPERTENSION/DIZZY Nursing Triage Summary: patient brought in by ems patient reports dizziness and high blood pressure,patient told to come by doctor patient has hx of V-tach,PE,patient wearing a life defib vest History of Present Illness The patient is a 21 year old female who presents to the Emergency Room with complaints of hypertension and dizziness that started today. She states that she can feel her blood pressure going up, and her dizziness gets worse when her blood pressure is high. She reports blood pressures in the 150s/120s at home prior to arrival, she reports her blood pressure is normally around 100/60. She currently states that her symptoms have been improving, and she notes her blood pressure is trending back down. She denies any headaches, vision changes , chest pain, shortness of breath, syncope, back pain, abdominal pain, nausea or vomiting, diarrhea, urinary symptoms. Her last period was one week ago and she states these are regular, denies concern for . Medical history significant for SVT, bilateral PEs on Xarelto, and states that she is being worked up by Dr. Lou for cardiomyopathy. Her multimedia services coordinator has been discussing the options of either doing ablation or placing a defibrillator to manage her SVT. She is currently wearing a life defibrillator vest at all times. Review of Systems A complete 10 point review of systems was reviewed with the patient with pertinent positives and negatives as per history of present illness. All else were negative. Past Medical/Surgical History Medical Problems: (1) Asthma (2) Benson's palsy (3) BPPV (benign paroxysmal positional vertigo) (4) Chest pain (5) Crohns disease (6) Dizziness (7) Heart palpitations (8) History of pulmonary embolism (9) LISY (iron deficiency anemia) (10) Throat mass (11) Ventricular tachycardia Surgical Problems: (1) H/O nasal polypectomy (2) H/O ovarian cystectomy (3) History of tonsillectomy and adenoidectomy (4) [place] teeth extracted Family History Unobtainable family history due to adoption Social History Smoking Status: Never Smoker Alcohol Use: none Drug Use: none Marital Status: Housing Status: lives with family Current/Historical Medications Scheduled Metoprolol Succinate (Metoprolol Succinate ER), 25 MG PO DAILY Multivitamin (Multivitamin), 1 TAB PO DAILY Probiotic Product (Probiotic), 1 CAP PO DAILY Rivaroxaban (Xarelto), 20 MG PO QPM Allergies Coded Allergies: Ibuprofen (Verified Allergy, Severe, ANAPHYLAXIS, 03/02/17) Physical Exam Vital Signs Date Time Temp Pulse Resp B/P (MAP) Pulse Ox O2 Delivery O2 Flow Rate FiO2 03/21/17 21:58 78 16 108/73 99 03/21/17 21:06 83 16 125/74 98 Room Air 03/21/17 20:50 92 16 127/74 97 Room Air 03/21/17 20:35 91 03/21/17 19:24 87 16 132/92 98 Room Air 03/21/17 18:46 74 16 128/80 97 Room Air 03/21/17 17:57 82 18 112/76 03/21/17 17:14 100 Room Air 03/21/17 17:14 100 Room Air 03/21/17 16:54 87 123/75 101 129/91 03/21/17 16:51 92 03/21/17 16:49 36.8 86 18 120/87 98 Room Air Physical Exam CONSTITUTIONAL: No acute distress. Well hydrated, well appearing and well nourished. Alert and oriented X 4 with normal affect. HEENT: Normocephalic, atraumatic. Pupils equal, round and reactive to light, EOMI. TMs normal. Pharynx normal. Moist mucous membranes. NECK: Supple, full active range of motion without discomfort. RESPIRATORY: Clear to auscultation bilaterally with no wheezing, crackles, rhonchi or stridor. Equal expansion bilaterally. CARDIOVASCULAR: Regular rate and rhythm with no murmurs, rubs or gallops. Normal peripheral perfusion. No edema. GASTROINTESTINAL: Soft, nontender, nondistended. Bowel sounds present in all quadrants. MUSCULOSKELETAL: Full range of motion of all joints without discomfort. No calf tenderness or swelling. INTEGUMENTARY: No rash or other significant dermatologic conditions noted. NEUROLOGIC: Cranial nerves II-XII grossly intact. No focal neurologic deficits noted. Normal strength, normal sensation, normal gait, normal speech, normal coordination and balance. Medical Decision & Procedures ER Provider Diagnostic Interpretation: CHEST 2 VIEWS ROUTINE CLINICAL HISTORY: 21 years-old Female presenting with eval cardiomegaly, effusion, pulm edema. TECHNIQUE: PA and lateral views of the chest were obtained. COMPARISON: 03/02/2017. FINDINGS: Cardiomediastinal silhouette normal. Lungs and pleural spaces clear. Osseous structures normal. Upper abdomen normal. IMPRESSION: 1. No acute cardiopulmonary disease. Laboratory Results 03/21/17 16:50 Red Blood Count 4.74, Mean Corpuscular Volume 86.7, Mean Corpuscular Hemoglobin 30.2, Mean Corpuscular Hemoglobin Concent 34.8, Mean Platelet Volume 9.7, Neutrophils (%) (Auto) 48.8, Lymphocytes (%) (Auto) 37.0, Monocytes (%) (Auto) 9.0, Eosinophils (%) (Auto) 4.2, Basophils (%) (Auto) 0.7, Neutrophils # (Auto) 3.53, Lymphocytes # (Auto) 2.67, Monocytes # (Auto) 0.65, Eosinophils # (Auto) 0.30, Basophils # (Auto) 0.05 03/21/17 16:50 Test 03/21/17 16:50 03/21/17 17:55 03/21/17 18:40 03/21/17 19:45 White Blood Count 7.22 K/uL (4.8-10.8) Red Blood Count 4.74 M/uL (4.2-5.4) Hemoglobin 14.3 g/dL (12.0-16.0) Hematocrit 41.1 % (37-47) Mean Corpuscular Volume 86.7 fL (80-100) Mean Corpuscular Hemoglobin 30.2 pg (25-34) Mean Corpuscular Hemoglobin Concent 34.8 g/dl (32-36) Platelet Count 311 K/uL (130-400) Mean Platelet Volume 9.7 fL (7.4-10.4) Neutrophils (%) (Auto) 48.8 % Lymphocytes (%) (Auto) 37.0 % Monocytes (%) (Auto) 9.0 % Eosinophils (%) (Auto) 4.2 % Basophils (%) (Auto) 0.7 % Neutrophils # (Auto) 3.53 K/uL (1.4-6.5) Lymphocytes # (Auto) 2.67 K/uL (1.2-3.4) Monocytes # (Auto) 0.65 K/uL (0.11-0.59) Eosinophils # (Auto) 0.30 K/uL (0-0.5) Basophils # (Auto) 0.05 K/uL (0-0.2) RDW Standard Deviation 43.4 fL (36.4-46.3) RDW Coefficient of Variation 13.8 % (11.5-14.5) Immature Granulocyte % (Auto) 0.3 % Immature Granulocyte # (Auto) 0.02 K/uL (0.00-0.02) Prothrombin Time 10.8 SECONDS (9.0-12.0) Prothromb Time International Ratio 1.0 (0.9-1.1) Activated Partial Thromboplast Time 28.3 SECONDS (21.0-31.0) Partial Thromboplastin Ratio 1.1 Anion Gap 7.0 mmol/L (3-11) Est Creatinine Clear Calc Drug Dose 126.8 ml/min Estimated GFR () 142.2 Estimated GFR (Non- 122.7 BUN/Creatinine Ratio 12.6 (10-20) Calcium Level 9.0 mg/dl (8.5-10.1) Total Bilirubin 0.2 mg/dl (0.2-1) Direct Bilirubin mg/dl (0-0.2) Aspartate Amino Transf (AST/SGOT) 15 U/L (15-37) Alanine Aminotransferase (ALT/SGPT) 27 U/L (12-78) Alkaline Phosphatase 85 U/L (45-117) Troponin I < 0.015 ng/ml (0-0.045) Pro-B-Type Natriuretic Peptide 11 pg/ml (0-450) Total Protein 7.8 gm/dl (6.4-8.2) Albumin 3.9 gm/dl (3.4-5.0) Lipase 157 U/L (73-393) Thyroid Stimulating Hormone (TSH) 1.580 uIu/ml (0.300-4.500) Chemistry Specimen Hemolysis Lactic Acid Level 1.3 mmol/L (0.4-2.0) Urine Color YELLOW Urine Appearance CLEAR (CLEAR) Urine pH 6.5 (4.5-7.5) Urine Specific [place] 1.015 (1.000-1.030) Urine Protein NEG (NEG) Urine Glucose (UA) NEG (NEG) Urine Ketones NEG (NEG) Urine Occult Blood NEG (NEG) Urine Nitrite NEG (NEG) Urine Bilirubin NEG (NEG) Urine Urobilinogen NEG (NEG) Urine Leukocyte Esterase NEG (NEG) Medications Administered Medications (Trade) Dose Ordered Sig/Dirk Route Start Time Stop Time Status Last Admin Dose Admin Metoprolol Succinate (Toprol Xl Tab) 12.5 mg NOW STAT PO 03/21/17 21:08 03/21/17 21:09 DC 03/21/17 21:21 12.5 MG ECG Indication: other (hypertension, dizziness) Rate (beats per minute): 83 Rhythm: normal sinus Findings: no acute ischemic change, no ectopy Change: no significant change (when compred to EKG from 03/03/2017, rate is increased by 30 bpm, no other changes appreciated) Medical Decision CC: Patient presenting with complaint of dizziness and hypertension Interpretation of Labs: No leukocytosis, no anemia, no significant electrolyte abnormalities, normal renal function, normal liver enzymes and lipase, normal TSH, normal lactic acid. Troponin negative, pro-BNP negative. UA negative. Differential Diagnosis: Includes, but not limited to hypertension, hypertensive urgency, dehydration, orthostasis, dysrhythmia, ACS, pulmonary edema, CHF, UTI, among others. Medication Reconciliation: I attest that I have personally reviewed the patient' s current medication list. Vital signs review: I reviewed the patient's vital signs and interpret them as follows: T: Afebrile; BP: Hypertensive; HR: Within normal limits; RR: Within normal limits; Pulse Ox: Within normal limits on room air. Blood pressure screening: The patient was found to have an elevated blood pressure and was referred to their primary doctor for recheck and further treatment. Summary: Patient was evaluated at bedside, history and physical exam performed. Patient is alert and oriented, no acute distress, resting comfortably in the stretcher. Patient is noted to be mildly hypertensive on initial vital signs. Neurologic exam is intact, no focal deficits appreciated. Heart and lung exam is unremarkable. Patient is wearing a life defibrillator vest. EKG evaluated at bedside, shows normal sinus rhythm with no acute ischemic changes. Compared to previous EKG, no significant change Orders were placed at bedside for labs including troponin and pro-BNP, UA and urine , chest x-ray to evaluate for cardiopulmonary disease. Patient discussed with Dr. Baum, who agrees with my assessment and plan. Labs reviewed as above, no significant abnormalities. Troponin and pro-BNP are normal limits. Chest x-ray reviewed, no acute abnormalities. I did speak on the phone with Dr. Lou, multimedia services coordinator, regarding the patient's symptoms and clinical findings today. He recommended that the patient could increase metoprolol dosing by taking half tablet in the evening and continuing 25 mg in the morning. She can continue to follow up in clinic as scheduled. Patient reassessed multiple times throughout ED stay, she reports that she is feeling much better, and her blood pressure has continued to trend down and returned to normal for the patient. Urine test was ordered, but this apparently was not done. Patient did not wish to stay for test, and she did deny any concerns for . Patient was given 12.5 mg of extended release metoprolol prior to discharge, per recommendations of Dr. Lou. Patient was updated on all results and plan for discharge home, and encouraged to keep all of her scheduled follow-up appointments. Patient was also given strict return precautions should her symptoms worsen or change, she verbalized understanding. Patient was discharged home in stable condition and ambulatory. Impression Primary Impression: Dizziness Additional Impression: Hypertension Departure Information Dispostion Home / Self-Care Condition GOOD Referrals Jesse Kerr M.D.(LAUREN) (PCP) Keanu Lou M.D. Patient Instructions My [facility] Additional Instructions Continue taking your metoprolol 1 tablet (25 mg) in the morning, and start taking 1/2 tablet (12.5 mg) in the evening. Keep your scheduled follow-up with your multimedia services coordinator. Call your multimedia services coordinator if you continued to have dizziness and high blood pressure. Please return to the emergency department for any worsening symptoms, including chest pain, shortness of breath, severe dizziness or passing out, or any other concerns. Problem Qualifiers Additional Impression: Hypertension Hypertension type: unspecified Qualified Codes: I10 - Essential (primary) hypertension
[2017-03-21 17:32] LABS: ALKALINE PHOSPHATASE 85 U/L (45-117); ALT/SGPT 27 U/L (12-78); AST/SGOT 15 U/L (15-37); BLOOD UREA NITROGEN 9 mg/dl (7-18); BUN/CREATININE RATIO 12.6 (10-20); CARBON DIOXIDE 24 mmol/L (21-32); CHLORIDE 108 mmol/L (98-107); CREATININE 0.69 mg/dl (0.60-1.20); GLUCOSE 106 mg/dl (70-99); POTASSIUM 3.8 mmol/L (3.5-5.1); SODIUM 139 mmol/L (136-145)
--- NOTE | 2017-03-21 18:02 | DIAGNOSTIC IMAGING REPORT ---
CHEST 2 VIEWS ROUTINE CLINICAL HISTORY: 21 years-old Female presenting with eval cardiomegaly, effusion, pulm edema. TECHNIQUE: PA and lateral views of the chest were obtained. COMPARISON: 03/02/2017. FINDINGS: Cardiomediastinal silhouette normal. Lungs and pleural spaces clear. Osseous structures normal. Upper abdomen normal. IMPRESSION: 1. No acute cardiopulmonary disease. Electronically signed by: Seymour Magdaleno M.D. 03/21/2017 6:01 PM Dictated Date/Time: 03/21/2017 6:00 PM
[2017-03-21 19:58] LABS: URINE APPEARANCE CLEAR (CLEAR); URINE BILIRUBIN NEG (NEG); URINE COLOR YELLOW; URINE NITRITE NEG (NEG); URINE PH 6.5 (4.5-7.5); URINE SPECIFIC GRAVITY 1.015 (1.000-1.030); UROBILINOGEN NEG (NEG)
[2017-03-21 19:59] LABS: MANUAL MICROSCOPIC REQUIRED? NO; REVIEW REQ? NO
[2017-03-21] MEDS ORDERED: METOPROLOL SUCC 25MG EXT REL TAB PO STA (21:08)
[2017-03-21 21:58] VITALS: BP 108/73; PULSE 78; O2SAT 99
== END 2017-03-21 22:00 | disposition home or self-care (01) ==
LOC: EDBD 16:32 → C.EDA 16:33
DX: R42 Dizziness and giddiness (principal); I10 Essential (primary) hypertension; J45.909 Unspecified asthma, uncomplicated; G51.0 Bell's palsy; K50.90 Crohn's disease, unspecified, without complications; Z86.711 Personal history of pulmonary embolism; D50.9 Iron deficiency anemia, unspecified; I47.2 Ventricular tachycardia; Z79.01 Long term (current) use of anticoagulants; Z79.899 Other long term (current) drug therapy

== ENCOUNTER → 2017-04-03 | Day surgery (SDC) | payer OTHER ==
[2017-04-01 15:39] VITALS: Ht 157.5 cm; Wt 81.4 kg
[~2017-04-03] VITALS: Ht 157.5 cm; Wt 81.4 kg
[~2017-04-03] MED LIST changes: +LIDOCAINE HCL 2% 2 ML VIAL (20MG/ML) ONE; +MIDAZOLAM HCL 1 MG/ML 2ML VIAL ONE; +ONDANSETRON INJ 2 MG/ML 2 ML VIAL IV STA; +ONDANSETRON INJ 2 MG/ML 2 ML VIAL ONE; +PROPOFOL IV EMULSION 10 MG/ML 20 ML VIAL IV ONE; +SODIUM CHLORIDE 0.9% 500ML 500 ML IV ONE; +TPRSR/25 PO; -TPRSR25 PO; +VNTHFA/IN INH
--- NOTE | 2017-04-03 10:11 | Endo History and Physical ---
History & Physical Date of Service: Apr 03, 2017. Chief Complaint: Neck mass, dysphagia Referring Physician: Jesse Kerr History of Present Illness Patient with dysphagia symptoms Past Surgical History Hx Cardiac Surgery: No Hx Internal Defibrillator: No Hx Pacemaker: No Hx Abdominal Surgery: Yes ( X 2) Hx of Implantable Prosthesis: No Hx Post-Op Nausea and Vomiting: No Hx Cancer Surgery: No Hx Thoracic Surgery: No Hx Orthopedic: No Hx Urinary Tract Surgery: No Family History None Social History Smoking Status: Never Smoker Hx Substance Use: No Hx Alcohol Use: No Allergies Coded Allergies: Ibuprofen (Verified Allergy, Severe, ANAPHYLAXIS, 04/01/17) Current Medications Reported Home Medications Medications Dose Route/Sig Max Daily Dose Days Date Category Dose Instructions Ventolin Hfa (Albuterol) 200 Puffs/41481 Mcg Aers 2-4 Puffs INH Q6H PRN 04/01/17 Reported Metoprolol Succinate ER (Metoprolol Succinate) 25 Mg Tabcr 25 Mg PO BID 03/21/17 Reported 1 TAB IN AM 1/2 TAB IN PM Xarelto (Rivaroxaban) 20 Mg Tab 20 Mg PO QPM 11/19/16 Reported Multivitamin (Multivitamins) Tab 1 Tab PO QPM 07/11/16 Reported Probiotic (Probiotic Product) 1 Cap Cap 1 Cap PO QPM 07/11/16 Reported Vital Signs Weight (Kilograms): 81.36 Height (Feet): 5 Height (Inches): 2 Date Time Temp Pulse Resp B/P (MAP) Pulse Ox O2 Delivery O2 Flow Rate FiO2 04/03/17 09:52 36.7 68 18 110/66 (81) 98 Room Air Physical Exam General Appearance: no apparent distress Respiratory/Chest: Auscultation: breath sounds normal Cardiovascular: Heart Auscultation: RRR Abdomen: Inspection & Palpation: soft Liver: non-tender Assessment and Plan stable for EGD
--- NOTE | 2017-04-03 10:45 | Discharge Instructions ---
Endoscopy Patient Instructions Date / Procedure(s) Performed Apr 03, 2017. EGD Allergy Information Coded Allergies: Ibuprofen (Verified Allergy, Severe, ANAPHYLAXIS, 04/01/17) Discharge Date / Findings Apr 03, 2017. normal upper endoscopy Provider Instructions Activity Restrictions - No exercising or heavy lifting for 24 hours. - Do not drink alcohol the day of the procedure. - Do not drive a car or operate machinery until the day after the procedure. - Do not make any important decisions or sign important papers in 24 hours after the procedure. Following Day: - Return to full activity which may include returning to work/school. Diet Start your diet with liquids and light foods (jello, soup, juice, toast). Then eat your usual diet if not nauseated. Treatment For Common After Affects For mild abdominal pain, bloating, or excessive gas: - Rest - Eat lightly - Lie on right side Follow-Up Information Follow-up with Jesse Kerr as scheduled Anesthesia Information What You Should Know You have had a procedure that required some medicine to reduce anxiety and discomfort. This treatment is called moderate sedation. After receiving the treatment, you may be sleepy, but you will be able to breathe on your own. The effects of the treatment may last for several hours. Follow these instructions along with Activity/Diet recommendations noted above: * Do NOT do anything where dizziness or clumsiness would be dangerous. * Rest quietly at home today, then you can be up and about tomorrow. * Have a responsible person stay with you the rest of today. * You may have had an I.V. today. If so, you may take the dressing off later today. Recommendations Call your doctor if: * Trouble breathing * Continuous vomiting for more than 24 hours * Temperature above 101 degrees * Severe abdominal pain or bloating * Pain not relieved by pain medicine ordered * There is increased drainage or redness from any incision * A large amount of rectal bleeding greater than 2-3 tablespoons. (If you had a polyp/s removed or have hemorrhoids, a small amount of blood - from the rectum is to be expected.) * You have any unanswered questions or concerns. IN THE EVENT OF A SERIOUS EMERGENCY, GO TO THE NEAREST EMERGENCY ROOM Your discharge instructions were prepared by provider Jet Bo. Patient Instructions Signature Page Catherine Cannon Patient (or Guardian) Signature/Date: I have read and understand the instructions given to me by my caregivers. Caregiver/RN/Doctor Signature/Date: The above-named patient and/or guardian has received patient instructions on this date. + Original Patient Signature Page (only) stays with chart. Please make copy for patient.
--- NOTE | 2017-04-03 10:47 | GI REPORT ---
Procedure Date: 04/03/2017 10:15 AM Procedure: Upper GI endoscopy Indications: Dysphagia, Odynophagia Medicines: See the Anesthesia note for documentation of the administered medications Complications: No immediate complications. Estimated Blood Loss: Estimated blood loss: none. Procedure: Pre-Anesthesia Assessment: - Prior to the procedure, a History and Physical was performed, and patient medications, allergies and sensitivities were reviewed. The patient's tolerance of previous anesthesia was reviewed. - The risks and benefits of the procedure and the sedation options and risks were discussed with the patient. All questions were answered and informed consent was obtained. - Patient identification and proposed procedure were verified prior to the procedure by the physician and the nurse. The procedure was verified in the pre-procedure area. - Pre-procedure physical examination revealed no contraindications to sedation. - After reviewing the risks and benefits, the patient was deemed in satisfactory condition to undergo the procedure. After obtaining informed consent, the endoscope was passed under direct vision. Throughout the procedure, the patient's blood pressure, pulse, and oxygen saturations were monitored continuously. The scope was introduced through the mouth, and advanced to the third part of duodenum. The upper GI endoscopy was accomplished without difficulty. The patient tolerated the procedure well. Findings: The esophagus was normal. The stomach was normal. The examined duodenum was normal. The cardia and gastric fundus were normal on retroflexion. Impression: - Normal esophagus. - No strictures seen. - Normal stomach. - Normal examined duodenum. - No specimens collected. Recommendation: - Discharge patient to home. Jet Bo M.D. Jet Bo MD 04/03/2017 10:47:00 AM This report has been signed electronically. Note Initiated On: 04/03/2017 10:15 AM I attest to the content of the Intraoperative Record and orders documented therein, exceptions below
--- NOTE | 2017-04-03 11:08 | Anesthesiology Progress Note ---
Anesthesia Post Op Note Date & Time Apr 03, 2017 at 11:07 Vital Signs Vital Signs Past 12 Hours Date Time Temp Pulse Resp B/P (MAP) Pulse Ox O2 Delivery O2 Flow Rate FiO2 04/03/17 10:51 78 18 115/72 (86) 98 Room Air 04/03/17 10:46 73 18 116/68 (84) 98 Room Air 04/03/17 09:52 36.7 68 18 110/66 (81) 98 Room Air Notes Mental Status: alert / awake / arousable, participated in evaluation Pt Amnestic to Procedure: Yes Nausea / Vomiting: adequately controlled, improving with treatment Pain: adequately controlled Airway Patency, RR, SpO2: stable & adequate BP & HR: stable & adequate Hydration State: stable & adequate Anesthetic Complications: no major complications apparent The patient did well. Her HR never went over 90. She was given Zofran in recovery to treat her nausea.
[2017-04-03 11:15] VITALS: BP 117/77; PULSE 83; O2SAT 100
== END | disposition home or self-care (01) ==
LOC: C.GI 09:19
PROVIDERS: ATTEND Internal Medicine Gastroenterology
DX: R13.10 Dysphagia, unspecified (principal); J45.909 Unspecified asthma, uncomplicated; Z86.711 Personal history of pulmonary embolism; E66.9 Obesity, unspecified; Z68.33 Body mass index [BMI] 33.0-33.9, adult

== ENCOUNTER → 2017-04-17 | Day surgery (SDC) | payer OTHER ==
[~2017-04-17] VITALS: Ht 154.9 cm; Wt 81.0 kg
[~2017-04-17] MED LIST changes: +CEFAZOLIN SOD 1 GM VIAL ONE; +FENTANYL CITRATE INJ 50 MCG/1 ML 2 ML VIAL ONE; +LIDOCAINE HCL 1% 20 ML VIAL ONE; -LIDOCAINE HCL 2% 2 ML VIAL (20MG/ML) ONE; -ONDANSETRON INJ 2 MG/ML 2 ML VIAL IV STA; -ONDANSETRON INJ 2 MG/ML 2 ML VIAL ONE; -PROPOFOL IV EMULSION 10 MG/ML 20 ML VIAL IV ONE; -SODIUM CHLORIDE 0.9% 500ML 500 ML IV ONE
[2017-04-17 11:48] VITALS: BP 112/63; PULSE 80; TEMP 36.4; O2SAT 100; Ht 154.9 cm; Wt 81.0 kg
--- NOTE | 2017-04-17 11:48 | History & Physical Bridge Note ---
H&P Re-Evaluation Bridge Note: I have examined the patient, reviewed the History & Physical and in the interval since the performance of the History & Physical I have noted the following changes of clinical significance: No changes noted
--- NOTE | 2017-04-17 11:48 | Procedure Note ---
Pre-Mod Sedation Assessment General Date of Moderate Sedation: Apr 17, 2017. Review Cardiovascular: regular rate, rhythm Abdomen: soft Lungs: lungs clear Airway Class: II Pre-Sedation Airway Assessment Able to Visualize Vocal Cords: No Short Thick Neck: No Hx of Sleep Apnea: No Smoking Status: Never Smoker Mallampati Classification: Class II ASA Classification: Class II Procedure Planning Contraindications-for Mod Sed: None Yes Notes The planned sedation has been discussed with the patient and consent obtained. I have identified the patient, determined the appropriateness of sedation and have assessed the patient immediately prior to the procedure. All medicine(s) and interventions are by my order.
--- NOTE | 2017-04-17 12:17 | [facility] Post Operative Brief Note ---
Immediate Operative Summary Operative Date Apr 17, 2017. Pre-Operative Diagnosis Syncope, VT Post-Operative Diagnosis same Procedure(s) Performed LINQ insertion Surgeon abrahan schulz Drapery Hanger Surgeon(s) None Estimated Blood Loss minimal Findings see official report Fluids (cc crystalloids) 100cc Specimens none Drains none Anesthesia 2mg versed and 50mcg fentatnyl Complication(s) None Disposition [facility]
--- NOTE | 2017-04-17 12:17 | Procedure Note ---
Post-Mod Sedation Assessment General Date of Moderate Sedation Apr 17, 2017. Vital Signs: Vital Signs Past 12 Hours Date Time Temp Pulse Resp B/P (MAP) Pulse Ox O2 Delivery O2 Flow Rate FiO2 04/17/17 12:15 Room Air 04/17/17 12:10 88 16 108/62 (77) 96 Room Air 04/17/17 11:48 36.4 80 16 112/63 100 Room Air Review - Discharge Criteria Vital Signs Stable: Yes Alert/Oriented/Conversant: Yes Returned to Baseline Mental St: Yes Nausea Absent/Minimal: Yes Pain/Discomfort/Absent/Minimal: Yes Normal/Baseline Respirations: Yes Active Bleeding?: No Pt Received D/C Instructions: N/A Prescriptions Given: None Specific Proced. D/C Criteria Distal Pulses Present (Cardiac: N/A Groin site assessed-Card Cath: N/A Voided Prior To Discharge: N/A Discharged Patients Adult Escort/Transportation: N/A
--- NOTE | 2017-04-17 12:19 | Discharge Instructions ---
Discharge Instructions Date of Service Apr 17, 2017. Visit Reason for Visit: Syncope, Ventricular Tachycardia Discharge Discharge Diagnosis / Problem: Syncope, VT Discharge Goals Goal(s): Improve function Medications Stopped Medications Name(s): none Activity Recommendations Activity Limitations: resume your previous activity Shower/Bathe: tomorrow Driving or Machine Use: resume 1 day after discharge Anesthesia . Post Anesthesia Instructions: If you have had General Anesthesia or IV Sedation: * Do not drive today. * Resume driving when surgeon permits. * Do not make important decisions or sign legal documents today. * Call surgeon for: 1. Temperature elevations greater than 101 degrees F. 2. Uncontrollable pain. 3. Excessive bleeding. 4. Persistent nausea and vomiting. 5. Medication intolerance (nausea, vomiting or rash). * For nausea and vomiting use only clear liquids such as: tea, soda, bouillon until nausea subsides, then gradually increase diet as tolerated. * If you have any concerns or questions, call your surgeon's office. If physician is unavailable and it is an emergency, call 911 or go to the nearest emergency room. . Instructions / Follow-Up Instructions / Follow-Up ACTIVITY RECOMMENDATIONS: * No driving for 24 hours SPECIAL CARE INSTRUCTIONS: * If bleeding occurs, apply direct pressure to area for 5 minutes. * Call your doctor if you have severe pain, fever, drainage or bleeding at site. * Keep dry for 24 hours. * Keep any scheduled doctor's appointment. * Implant Card - hand held device with website information given. SKIN IRRITATION: * You may experience some redness and/or swelling in the area where radiation was administered. If any skin irritation occurs, please contact your family physician. FOLLOW UP VISIT: Keep any scheduled doctor appointments. Diet Recommendations Recommended Home Diet: resume previous diet Procedures Procedures Performed: LINQ insertion Pending Studies Studies pending at discharge: no Medical Emergencies . Who to Call and When: Medical Emergencies: If at any time you feel your situation is an emergency, please call 911 immediately. . Non-Emergent Contact Non-Emergency issues call your: [employer] . . "Provider Documentation" section prepared by Kecia Naidu. .
[2017-04-17 12:30] VITALS: BP 117/58; PULSE 82; TEMP 36.9; O2SAT 98
[2017-04-17 13:00] VITALS: BP 112/60; PULSE 90; O2SAT 97
--- NOTE | 2017-04-17 13:09 | OPERATIVE REPORT ---
DATE OF OPERATION: 04/17/2017 PREOPERATIVE DIAGNOSIS: Syncope, ventricular tachycardia. POSTOPERATIVE DIAGNOSIS: Same. PROCEDURE: LINQ insertion. SURGEON: Dr. Kecia Naidu. FINANCIAL AID OFFICER: None. ANESTHESIA: Monitored conscious sedation administered under my supervision by Roel Coronado, total of 2 mg of Versed, 50 mcg of fentanyl, start time 12:03, end time 12:10. Local anesthesia 10 mL of 1% lidocaine. COMPLICATIONS: None. CONDITION: Stable. URINE OUTPUT: Not applicable. SPECIMENS: None. FINDINGS: See below. DRAINS: None. BLOOD LOSS: Minimal. INDICATIONS: This is a 21-year-old female with remote history of syncope, unclear etiology, palpitations, inappropriate sinus tachycardia, wide complex tachycardia, possibly VT 30 beats during physical exertion on Zio Patch, pulmonary emboli in July 2016 on Xarelto, iron deficiency anemia, family history her biological father has a defibrillator, unclear, possible ARVD. She is adopted so does not know exactly, positive TTN gene for insignificant variants, unclear phenotypic expression if it correlates. Cardiac MRI was negative for any evidence of ARVD or other pathology and phenotypic expression of cardiac abnormalities, treadmill exercise stress test was negative for any inducible arrhythmia. Due to the negative phenotypic workup but possible VT with possible family history of some type of congenital abnormality for predisposition of sudden cardiac she was recommended a LINQ insertion. CONSENT: Consent was obtained prior to the patient going into the electrophysiology lab. The patient was informed of the risks, benefits and alternatives to the procedure. Risks include but not limited to sudden cardiac , cardiac arrhythmias, cerebrovascular accident, myocardial infarction, bleeding and infection. The patient understood these risks and agreed to the procedure as planned. Informed consent was obtained. DESCRIPTION OF THE PROCEDURE: The patient was brought into the electrophysiology lab in fasting state. He was connected to continuous cardiac monitoring. A timeout was performed to ensure patient's identity and procedure correctly. The patient was prepped and draped over the inframammary left region in normal surgical standard fashion. Monitored conscious sedation was given throughout the procedure for patient's comfort level. Alto precautions were obtained throughout the procedure. Lidocaine 1% 8 mL were given in the infra-left mammary crease for local anesthesia. Then using the LINQ insertion kit the LINQ was inserted and interrupted suture using 4-0 Monocryl followed by a 4-0 Monocryl running stitch was used to approximate the edges. Dermabond was then placed. EQUIPMENT: 1. Access [employer] Reveal LINQ LNQ11, serial number [id number]. 2. R-waves are 0.38 millivolts. 3. Settings 171 beats per minute for 12 beats, 30 beats per minute for 4 beats and 3 second pauses. IMPRESSION: Successful implantation of LINQ insertion secondary to syncope, wide complex tachycardia, possible VT with a negative cardiac MRI stress test and a nonspecific gene positive for TTN, insignificant variants and possible family history of sudden cardiac . PLAN: Monitor patient post sedation. She can drive and shower tomorrow. Continue her beta nani and she should follow up in our [facility] device clinic in 1 week. I attest to the content of the Intraoperative Record and any orders documented therein. Any exception s are noted below.
[2017-04-17 13:35] VITALS: BP 113/70; PULSE 87; O2SAT 98
== END | disposition home or self-care (01) ==
LOC: C.ACU 11:08
PROVIDERS: ATTEND Internal Medicine
DX: R55 Syncope and collapse (principal); I47.2 Ventricular tachycardia